=== PATIENT | female | born 1945 | race Caucasian/White ===

== ENCOUNTER 2020-01-11 17:05 | Outpatient (CLI) | payer MEDICARE, SELFPAY ==
--- NOTE | 2020-01-11 17:30 | MR_ITS ---
WS: [id number] MRI BRAIN WITHOUT CONTRAST HISTORY: F07.81 Postconcussional syndrome COMPARISON: CT head 02/18/2019. TECHNIQUE: Diffusion imaging, multiplanar T1, T2 and FLAIR imaging obtained. RIGHT frontal ventriculostomy catheter is causing significant artifact through the RIGHT brain. No ev idence for acute infarct or hemorrhage. Singh-white matter differentiation is normal. Moderate amount of periventricular white matter ischemic disease. There is additional ischemic change in the billy bilaterally. Ventricles are very slightly prominent but there is no hydrocephalus. Mild cerebral atrophy resulting in prominence of the subarachnoid spaces. No inferior displacement of cerebellar tonsils. The sella turcica and pituitary gland are unremarkabl e. Posterior fossa is also unremarkable. Dural venous sinuses and [place] demonstrate no abnormality on this unenhanced studies. Paranasal sinuses: Clear. Mastoid air cells: Normal. Calvarium and scalp: RIGHT frontal rafiq hole. MR/MR head wo con* [id number] IMPRESSION: 1. No evidence for intracranial hemorrhage or acute infarct. 2. RIGHT ventriculostomy catheter is unchanged in position with no complicatio ns. 3. Mild dilatation of the lateral ventricles but similar to the head CT of 02/18/2019. 4. Moderate chronic microvascular ischemic change in the white matter and bila terally in the billy.
== END 2020-01-11 17:06 | disposition home or self-care (01) ==
PROVIDERS: PCP Internal Medicine; Visit Provider Internal Medicine
DX: F07.81 Postconcussional syndrome (principal); R42 Dizziness and giddiness
CPT/HCPCS: 70551

== ENCOUNTER 2020-05-31 20:55 | Inpatient (IN) | payer MEDICARE, SELFPAY ==
[2020-05-31] VITALS (10 sets, daily range): BP systolic 72–104; BP diastolic 39–48; PULSE 64–72; RESP 12–18; TEMP 36.6; O2SAT 98–100
--- NOTE | 2020-05-31 21:01 | CTR_ITS ---
PROCEDURE INFORMATION: Exam: CT Head Without Contrast Exam date and time: 05/31/2020 10:58 PM Age: 74 years old Clinical indication: Syncope and collapse; Prior surgery; Surgery type: Shunt; Patient HX: Syncope with hypotension TECHNIQUE: Imaging protocol: Computed tomography of the head without contrast. Radiation optimization: All CT scans at this facility use at least one of these dose optimization techniques: automated exposure control; mA and/or kV adjustment per patient size (includes targeted exams where dose is matched to clinical indication); or iterative reconstruction. COMPARISON: CT head wo con* [id number] 02/18/2019 5:04 PM RADIATION DOSE METRICS: Total DLP (mGy-cm): 732.78 FINDINGS: Tubes, catheters and devices: Stable position of right frontal MATERIAL CONTROL SUPERVISOR shunt catheter, tip in the right lateral ventricle. Brain: No acute intracranial hemorrhage or mass effect. There is mild decreased attenuation in the periventricular white matter, likely from microvascular disease. No definite acute infarct by CT. MRI could be more sensitive/specific for detection, as clinically directed. Cerebral ventricles: Ventricle size is not significantly changed, probably upper range of normal/mildly prominent. Bones/joints: No definite acute skull fracture. Paranasal sinuses: Included paranasal sinuses are essentially clear. Mastoid air cells: No significant acute finding. Vasculature: Vascular calcifications in the internal carotid arteries. CT/CT head wo con* [id number] IMPRESSION: 1. No acute intracranial hemorrhage or mass effect. 2. Changes of microvascular disease. 3. No definite acute infarct by CT, see above. 4. MATERIAL CONTROL SUPERVISOR shunt catheter as above. Stable ventricle size. 5. Other findings discussed above. Radiation Dose CTDIVOL = (mGy): DLP = 732.78 (mGy-cm)
--- NOTE | 2020-05-31 21:01 | XR_ITS ---
WS: [id number] PORTABLE CHEST HISTORY: syncope COMPARISON: 03/10/2019 RANGE FEEDER shunt catheter tubing projects over the thoracic spine. Increasing patchy areas of opacification throughout the LEFT lung. Slightly better aeration in the RI GHT lower lung field. There is continued pleural thickening along the minor fissure. Mild elevation o f the RIGHT diaphragm. No pleural effusion or pneumothorax. Cardiac size: Mildly enlarged cardiac silhouette. Mediastinum/Aorta: Mild atherosclerosis aorta. Multiple deformed ribs in the posterior LEFT thorax from fractures. Degenerative changes at the LEFT glenohumeral joint and osteophytosis. Prior cholecystectomy. XR/XR chest 1V portable [id number] IMPRESSION: 1. New developing opacification throughout the LEFT lung, greatest in the uppe r lung field. Consistent with pneumonia. 2. Improved aeration RIGHT lower lobe. 3. Mild cardiomegaly.
--- NOTE | 2020-05-31 21:02 | ECG_ITS ---
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1945 Requested By: Jun Martínez Order Number: [id number] Reading MD: DORCAS DIXON Measurements Intervals [place] Rate: 65 P: -73 HI: 147 QRS: 4 QRSD: 118 T: 47 QT: 457 QTc: 476 Interpretive Statements ECTOPIC ATRIAL RHYTHM ANTEROSEPTAL MYOCARDIAL INFARCTION , PROBABLY old Compared to ECG 02/25/2019 17:17:08 Ectopic atrial rhythm now present Sinus rhythm no longer present Myocardial infarct finding still present Electronically Signed On 06-01-2020 18:18:40 VOCATIONAL REHABILITATION SUPERVISOR by DORCAS DIXON [id number]
--- NOTE | 2020-05-31 21:05 | CTR_ITS ---
PROCEDURE INFORMATION: Exam: CT Abdomen And Pelvis Without Contrast Exam date and time: 05/31/2020 10:58 PM Age: 74 years old Clinical indication: Abdominal pain; Generalized; Prior surgery; Surgery type: Gb. Hysterectomy. Hemorrhoidectomy. ; Patient HX: Diffuse abd pain. Hypotensive. No contrast due to creatinine of 2.5. TECHNIQUE: Imaging protocol: Computed tomography of the abdomen and pelvis without contrast. Radiation optimization: All CT scans at this facility use at least one of these dose optimization techniques: automated exposure control; mA and/or kV adjustment per patient size (includes targeted exams where dose is matched to clinical indication); or iterative reconstruction. COMPARISON: CR Pelvis AP 1 or 2 views* [id number] 09/20/2018 12:14 AM RADIATION DOSE METRICS: Total DLP (mGy-cm): 344.83 FINDINGS: Limitations: The absence of intravenous contrast lessens the sensitivity of this study for solid organ abnormalities. Tubes, catheters and devices: HIV CTS SPECIALIST shunt catheter is seen within the peritoneal cavity. Lungs: There is some dependent atelectasis at the lung bases. Mediastinal space: There is a small hiatal hernia. Liver: There is no focal abnormality within the liver. Gallbladder and bile ducts: There has been a cholecystectomy. Pancreas: The pancreas is normal. Spleen: The spleen is normal. Adrenal glands: The adrenal glands are normal. Kidneys and ureters: There is mild right hydronephrosis. There is mild right hydroureter. There is no evidence of renal or ureteral calcifications. There is mild atrophy of the left kidney Stomach and bowel: There is no evidence of colitis/diverticulitis. There are few mildly prominent small bowel loops in the mid abdomen which could represent mild ileus. Appendix: Not identified Intraperitoneal space: There is no evidence of free intraperitoneal fluid. Vasculature: The aorta demonstrates moderate atherosclerotic calcification. There is no evidence of an abdominal aortic aneurysm. Lymph nodes: Unremarkable. No enlarged lymph nodes. Urinary bladder: There is mild thickening of the urinary bladder wall. Please correlate for any clinical findings of urinary tract infection. Reproductive: There has been a hysterectomy. Bones/joints: The lumbar spine demonstrates moderate degenerative changes at multiple levels. Soft tissues: Unremarkable. CT/CT abdomen pelvis wo con [id number] IMPRESSION: 1. There is mild atrophy mild thickening of the urinary bladder wall. Please correlate for symptoms of urinary tract infection. 2. Mild right hydronephrosis and right hydroureter of uncertain significance and etiology. 3. Mild left renal atrophy. 4. Question of mild ileus. of the left kidney. Radiation Dose CTDIVOL = (mGy): DLP = 344.83 (mGy-cm)
--- NOTE | 2020-05-31 21:07 | ED_ITS ---
HPI - Abdominal Pain General: Chief Complaint: General Medical Stated Complaint: syncope and low bp Time Seen by Provider: 05/31/20 20:58 Source: patient and EMS Mode of arrival: EMS Limitations: no limitations History of Present Illness: HPI narrative: 74-year-old female states she has been having abdominal pain throughout the day. She does get constipated she states she was trying to have a bowel movement and passed out. States she has had multiple syncopal episodes over the last few weeks. EMS arrived patient was hypotensive. She still complains abdominal pain she rates a 7 out of 10 it is diffuse in nature. Denies any worsening or improving factors. MD elicited complaint: abdominal pain Associated Symptoms: Reports syncope; Denies chills, dysuria and fever(s) Review of Systems Const: Denies: fever(s), chills, body aches or change in appetite Eyes: Denies: blurry vision or eye discomfort ENMT: Denies: throat pain or dental pain Card: Reports: syncope Resp: Denies: dyspnea GI: Reports: abdominal pain : Denies: dysuria Musc: Denies: neck pain or back pain Skin/Breast: Denies: rash Neuro: Denies: headache(s) Psych: Denies: depression Herson/Lymph: Denies: easy bruising All/Imm: Denies: urticaria PFSH ED PFSH: Medical History (Updated 06/01/20 @ 00:11 by Janee Garcia MD) Chronic kidney disease, stage III (moderate) Constipation COPD (chronic obstructive pulmonary disease) Oxygen dependent GERD (gastroesophageal reflux disease) History of pleural effusion HTN (hypertension) Hydrocephalus Osteoarthritis Post-concussion vertigo Pulmonary emboli On Eliquis Surgical History (Updated 06/01/20 @ 00:11 by Janee Garcia MD) History of appendectomy History of arthroscopic knee surgery History of cholecystectomy History of colonoscopy History of esophagogastroduodenoscopy (EGD) History of hemorrhoidectomy History of hysterectomy 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 status Family History Other Cancer Diabetes Stroke Social History Smoking and tobacco status: current some day smoker Alcohol intake: never History of recent travel: No Physical Exam Const: COMMON NORMALS: no acute distress, patient oriented x3 and healthy appearing HENMT: COMMON NORMALS: normocephalic and atraumatic HEAD & SCALP: normocephalic and atraumatic Eye: COMMON NORMALS: Equal, round and reactive pupils present and EOMs intact bilaterally PUPIL: Yes Equal, round and reactive pupils present Neck/C-Spine: COMMON NORMALS: full ROM and supple Chest: COMMONS NORMALS: normal inspection of the chest and normal palpation of entire chest wall Resp: COMMON NORMALS: normal respiratory effort, No retractions, No use of accessory muscles and clear to auscultation bilaterally AUSCULTATION: clear to auscultation bilaterally Cardio: COMMON NORMALS: regular rate, regular rhythm and No murmurs present (Cardio) RATE: regular rate RHYTHM: regular rhythm GI: COMMON NORMALS: Normal to inspection, nondistended, normoactive bowel sounds present and no masses PALPATION: Yes Tenderness to palpation present (GI) (diffuse) Extremity: COMMON NORMALS: normal to inspection and full ROM Neuro: COMMON NORMALS: patient oriented x3, moves all extremities and no focal motor deficits Psych: COMMON NORMALS: mental status grossly normal, Normal thought process present and cooperative THOUGHT PROCESS: Normal thought process present Skin: COMMON NORMALS: no rashes or lesions noted and no wounds GENERAL SKIN EXAM: no rashes or lesions noted Course Vital Signs: Vital signs: Vital Signs Temperature 97.8 F 05/31/20 20:56 Pulse Rate 68 06/01/20 00:00 Respiratory Rate 13 05/31/20 23:23 Blood Pressure 100/45 06/01/20 00:00 Pulse Oximetry 100 05/31/20 22:36 MDM - Abdominal Pain MDM Narrative: Medical decision making narrative: Patient presents with a syncopal event was found to be hypotensive. She does have an elevated lactate and white count with possible septic shock. Patient given IV fluids along with IV antibiotics. Her blood pressure here is improved she is dehydrated as well. Spoke to the hospitalist will admit to the ICU. Lab Data: Labs: Lab Results 05/31/20 05/31/20 05/31/20 Range/Units 21:30 21:30 21:30 WBC 18.2 H (4.0-10.0) 10^3/ uL RBC 5.28 (4.1-5.3) 10^6/u L Hgb 14.6 (11.5-15.3) g/dL Hct 48.0 H (37.0-47.0) % MCV 90.9 (81-99) fL MCH 27.7 L (28.0-34.0) pg MCHC 30.4 (30.0-36.0) g/dL RDW 14.9 (12.1-15.1) % Plt Count 414 H (130-400) 10^3/c mm MPV 9.9 (7.4-10.4) fL Neut % (Auto) 78.0 % Lymph % (Auto) 14.8 % Swift % (Auto) 5.0 % Eos % (Auto) 0.4 % Baso % (Auto) 0.8 % Neut # (Auto) 14.19 H (1.8-7.7) 10^3/u L Lymph # (Auto) 2.7 (0.8-4.8) 10^3/u L Swift # (Auto) 0.9 (0.2-0.9) 10^3/u L Eos # (Auto) 0.1 (0.0-0.8) 10^3/u L Baso # (Auto) 0.1 (0.0-0.1) 10^3/u L Nucleated RBC % (a uto) 0 % Nucleated RBCs # 0.0 /100WBC Sodium 137 (136-145) mmol/L Potassium 5.4 H (3.5-5.1) mmol/L Chloride 97 L (98-107) mmol/L Carbon Dioxide 18 L (22-29) mmol/L Anion Gap 27.4 H (5-19) BUN 28 H (8-23) mg/dL Creatinine 2.5 H (0.5-0.9) mg/dL GFR Calculation Not Reportable Glucose 122 H (65-115) mg/dL Calculated Osmolal ity 291 (285-295) mOsm/k g Lactic Acid 5.6 H* (0.5-2.2) mmol/L Calcium 9.8 (8.5-10.5) mg/dL Total Bilirubin 0.4 (0.15-1.2) mg/dL AST 75 H (0-32) U/L ALT 30 (0-33) U/L Alkaline Phosphata se 146 H (35-105) IU/L Total Protein 7.4 (6.6-8.7) g/dL Albumin 4.4 (3.5-5.2) g/dL Globulin 3.0 (1.3-4.6) g/dL Lipase 89 H (13-60) U/L Urine Color (Yellow) Urine Appearance (CLEAR) Urine pH (5-7) Ur Specific Gravit y (1.005-1.030) Urine Protein (Negative) Urine Glucose (UA) (Normal) Urine Ketones (Negative) Urine Blood (Negative) Urine Nitrate (Negative) Urine Bilirubin (Negative) Urine Urobilinogen (Negative) mg/dL Ur Leukocyte Rakel ase (Negative) Urine RBC (0-2) /hpf Urine WBC (0-5) /hpf Ur Squamous Epith Cells (0-5) /hpf Amorphous Sediment /hpf Urine Bacteria (NONE) /hpf Urine Mucus /hpf 05/31/20 Range/Units 22:31 WBC (4.0-10.0) 10^3/ uL RBC (4.1-5.3) 10^6/u L Hgb (11.5-15.3) g/dL Hct (37.0-47.0) % MCV (81-99) fL MCH (28.0-34.0) pg MCHC (30.0-36.0) g/dL RDW (12.1-15.1) % Plt Count (130-400) 10^3/c mm MPV (7.4-10.4) fL Neut % (Auto) % Lymph % (Auto) % Swift % (Auto) % Eos % (Auto) % Baso % (Auto) % Neut # (Auto) (1.8-7.7) 10^3/u L Lymph # (Auto) (0.8-4.8) 10^3/u L Swift # (Auto) (0.2-0.9) 10^3/u L Eos # (Auto) (0.0-0.8) 10^3/u L Baso # (Auto) (0.0-0.1) 10^3/u L Nucleated RBC % (a uto) % Nucleated RBCs # /100WBC Sodium (136-145) mmol/L Potassium (3.5-5.1) mmol/L Chloride (98-107) mmol/L Carbon Dioxide (22-29) mmol/L Anion Gap (5-19) BUN (8-23) mg/dL Creatinine (0.5-0.9) mg/dL GFR Calculation Glucose (65-115) mg/dL Calculated Osmolal ity (285-295) mOsm/k g Lactic Acid (0.5-2.2) mmol/L Calcium (8.5-10.5) mg/dL Total Bilirubin (0.15-1.2) mg/dL AST (0-32) U/L ALT (0-33) U/L Alkaline Phosphata se (35-105) IU/L Total Protein (6.6-8.7) g/dL Albumin (3.5-5.2) g/dL Globulin (1.3-4.6) g/dL Lipase (13-60) U/L Urine Color Yellow (Yellow) Urine Appearance Hazy A (CLEAR) Urine pH 5 (5-7) Ur Specific Gravit y 1.030 (1.005-1.030) Urine Protein Neg (Negative) Urine Glucose (UA) Norm (Normal) Urine Ketones Negative (Negative) Urine Blood Neg (Negative) Urine Nitrate Negative (Negative) Urine Bilirubin Neg (Negative) Urine Urobilinogen Norm (Negative) mg/dL Ur Leukocyte Rakel ase Negative (Negative) Urine RBC None (0-2) /hpf Urine WBC None (0-5) /hpf Ur Squamous Epith Cells 0-4 H (0-5) /hpf Amorphous Sediment 1+ /hpf Urine Bacteria Trace (NONE) /hpf Urine Mucus Trace /hpf EKG Data ^: EKG 1: Attestation: I personally reviewed and interpreted this EKG as follows: EKG interpretation date: 05/31/20 EKG interpretation time: 22:02 Interpretation: nsr hr [address] or t wave abnormalities qrs 118 qtc 468 Critical Care Time Critical Care Time: Critical Care Time: Yes Total Critical Care Time: 35 Attestation: This case had a high probability of a clinically significant, sudden, or life threatening deterioration of this patient's condition which required my full and direct attention, intervention and personal management. Discharge Plan Discharge Patient Disposition: Admitted As Inpatient Admit Provider: Janee Garcia Clinical Impression: Septic shock, Dehydration Condition: Stable Coding Level of Care Code ED Tannery Worker for Chg Fwd Exam Comprehensive
[2020-05-31] MEDS: sodium chloride 0.9% 1,000 ML 999 ML IV ×3 (21:20→22:52)
[2020-05-31 21:55] LABS: Basophils # 0.1 10^3/uL (0.0-0.1); Basophils % 0.8 %; Eosinophils # 0.1 10^3/uL (0.0-0.8); Eosinophils % 0.4 %; Hemoglobin 14.6 g/dL (11.5-15.3); Lymphocytes # 2.7 10^3/uL (0.8-4.8); Lymphocytes % 14.8 %; Mean Corpuscular HGB Conc 30.4 g/dL (30.0-36.0); Mean Corpuscular Hemoglobin 27.7 pg (28.0-34.0); Mean Corpuscular Volume 90.9 fL (81-99); Mean Platelet Volume 9.9 fL (7.4-10.4); Monocytes # 0.9 10^3/uL (0.2-0.9); Neutrophils # 14.19 10^3/uL (1.8-7.7); Nucleated Red Blood Cells % 0 %; Platelet Count 414 10^3/cmm (130-400); Red Blood Count 5.28 10^6/uL (4.1-5.3); Red Cell Distribution Width 14.9 % (12.1-15.1); White Blood Count 18.2 10^3/uL (4.0-10.0)
[2020-05-31 22:16] LABS: Alanine Aminotransferase 30 U/L (0-33); Albumin Level 4.4 g/dL (3.5-5.2); Alkaline Phosphatase 146 IU/L (35-105); Anion Gap 27.4 (5-19); Aspartate Amino Transferase 75 U/L (0-32); Blood Urea Nitrogen 28 mg/dL (8-23); Calcium 9.8 mg/dL (8.5-10.5); Carbon Dioxide 18 mmol/L (22-29); Chloride 97 mmol/L (98-107); Glucose 122 mg/dL (65-115); Lipase 89 U/L (13-60); Osmolality Calculated 291 mOsm/kg (285-295); Potassium 5.4 mmol/L (3.5-5.1); Sodium 137 mmol/L (136-145); Total Bilirubin 0.4 mg/dL (0.15-1.2); Total Protein 7.4 g/dL (6.6-8.7)
[2020-05-31 22:42] LABS: Add Urine Microscopic? YES; Bilirubin Urine Neg (Negative); Blood Urine Neg (Negative); Glucose Urine UA Norm (Normal); Ketones Urine Negative (Negative); Leukocyte Esterase Urine Negative (Negative); Nitrate Urine Negative (Negative); Protein Urine Neg (Negative); Urine Appearance Hazy (CLEAR); Urine Color Yellow (Yellow); Urobilinogen Urine Norm (Negative); pH Urine 5 (5-7)
[2020-05-31 22:46] LABS: Squamous Epithelial Cell Urine 0-4 /hpf (0-5)
[2020-05-31 22:47] LABS: Add Urine Culture? No; Amorphous Sediment Urine 1+ /hpf; Bacteria Urine TRACE /hpf; Mucus Urine TRACE /hpf
[2020-05-31 22:54] LABS: Lactic Sepsis W/Reflex 5.6 mmol/L (0.5-2.2)
--- NOTE | 2020-05-31 23:07 | PC.NURSE ---
Per physician - 2500 cc ivf total.
[2020-05-31] MEDS: piperacillin-tazobactam 3.375 GM in sodium chloride 0.9% (plus) 50 ML IV (23:22)
[2020-05-31 23:32] LABS: Reflex Lactate Order REFLEX LACTIC ORDERD
[2020-05-31] MEDS: vancomycin 1,000 MG in sodium chloride 0.9% 250 ML 250 MG IV (23:58)
[2020-06-01] VITALS (128 sets, daily range): BP systolic 100–166; BP diastolic 39–101; PULSE 68–120; RESP 14–31; TEMP 36.4–37.1; O2SAT 75–100
--- NOTE | 2020-06-01 00:04 | P.HP_ITS ---
Providers/Chief Complaint Admitting Physician: Janee Garcia MD Primary Care Provider: Grant Quevedo MD Chief Complaint: syncope and low bp History of Present Illness Mago Tong is a 74 year old female presented today with chief complaint of falling at home. Patient is stating that last evening she went to bathroom, after her bowel movement she started experiencing fatigue and lethargy she started shivering despite wearing extra layers. She did not experience any kenna st pain shortness of breath, nausea, vomiting, dysuria or diarrhea. She was feeling extremely lethargic, she called her son to help her get out of the bathroom, she could not get up and fell on her son. She is denying loss of consciousness, no palpitations, chest pain or seizure-like activities. Of note, patient is stating that for last 2 weeks she has been having sore throat, she also noticed some mouth sores and blisters for which she was given an antibiotic which seemed to resolve her sores but she is still experiencing sore throat. No odynophagia or dysphagia. She has quit drinking soda she used to drink 4-5 Dr[address] Pepper in a day now she is trying to stick with water only. She is endorsing not drinking enough fluid. No recent falls or seizure-like activities. She is denying urinary/rectal incontinence or back pain. Diagnostics in the ER revealed severe hypotension for which she was given normal saline bolus which seemed to improve her blood pressure, she did not show tachycardia or tachypnea she was afebrile was saturating well on 2 L nasal cannula, at home she was at a liter of oxygen at night, She received vancomycin and Zosyn in the ER, diagnostics revealed ACOSTA, leuko cytosis without any signs of sepsis, unremarkable UA, CT abdomen unremarkable, no urolithiasis however right hydronephrosis seen, patient is denying signs of UTI. I have requested strep throat culture, at the time of my evaluation systolic blood pressure was ranging between 98-1 10 mmhg mean arterial pressure 66mmhg, she was not complaining of any active abdominal pain, chest pain, no neurological deficit, she was awake alert oriented x3 GCS 15 no signs of meningitis. She looked extremely dehydrated I gave her cranberry juice and a glass of water. Chest x-ray unremarkable, it is showing hiatal hernia changes otherwise no consolidation revealed. Head CT shows stable ventricle size no acute infarct. EKG without ischemic or infarct changes however showing ectopic atrial beats Review of Systems Const: Reports: chills, body aches, change in appetite, fatigue, malaise and diaphoresis Eyes: Denies: change in vision ENMT: Reports: throat pain, oral sores and dry mouth; Denies: uvular edema or hoarseness Card: Denies: chest pain Resp: Denies: dyspnea GI: Denies: abdominal pain : Denies: flank pain Musc: Reports: muscle cramps Skin/Breast: Denies: rash Neuro: Denies: headache(s), difficulty walking or confusion Psych: Denies: anxiety Endo: Denies: polyuria Herson/Lymph: Denies: easy bruising All/Imm: Denies: urticaria Medications/Allergies Home Medications Medication Instructions Recorded Confirmed Last Taken Type budesonide-formoterol HFA 160 2 puff INHALATION BID #10.2 gm 09/13/19 05/16/20 Unknown Rx mcg-4.5 mcg/actuation aerosol inhaler hydroxyzine HCl 25 mg tablet 25 mg PO TID PRN #90 tab 11/12/19 05/16/20 Unknown Rx linaclotide 290 mcg capsule 290 mcg PO DAILY #30 cap 11/12/19 05/16/20 Unknown Rx omeprazole 20 mg capsule,delayed 20 mg PO BID #60 cap 11/12/19 05/16/20 Unknown Rx release potassium chloride 20 mEq 20 meq PO DAILY #30 tab 11/12/19 05/16/20 Unknown Rx tablet,extended release montelukast 10 mg tablet 10 mg PO .daily at hs #30 tab 11/15/19 05/16/20 Unknown Rx lisinopril 20 mg tablet 20 mg PO DAILY #30 tab 12/15/19 05/16/20 Unknown Rx apixaban 5 mg tablet 5 mg PO BID #60 tab MDD 2 01/24/20 05/16/20 Unknown Rx meloxicam 15 mg tablet 15 mg PO DAILY 30 Days #30 tab 01/24/20 05/16/20 Unknown Rx metformin 1,000 mg tablet 1,000 mg PO BID 30 Days #60 tab 01/24/20 05/16/20 Unknown Rx MDD 2 simvastatin 20 mg tablet 20 mg PO DAILY 30 Days #30 tab 01/24/20 05/16/20 Unknown Rx fluticasone propionate 50 See Rx Instructions .ROUTE 03/16/20 05/16/20 Unknown Rx mcg/actuation nasal .COMPLEX #16 g spray,suspension gabapentin 300 mg capsule 300 mg PO TID #90 cap 03/16/20 05/16/20 Unknown Rx tiotropium bromide 18 mcg capsule 1 cap INHALATION DAILY #30 inh 03/16/20 05/16/20 Unknown Rx with inhalation device clonazepam 1 mg tablet 1 mg PO .EVERY 6 HOURS, PRN 30 04/03/20 05/16/20 Unknown Rx Days #60 tab metoprolol succinate 100 mg 100 mg PO DAILY #30 tab 04/17/20 05/16/20 Unknown Rx tablet,extended release 24 hr amitriptyline 75 mg tablet 75 mg PO DAILY #30 tab 04/20/20 05/16/20 Unknown Rx metoprolol succinate 100 mg 100 mg PO DAILY #30 tab 04/20/20 05/16/20 Unknown Rx tablet,extended release 24 hr blood-glucose meter #1 ea 04/26/20 05/16/20 Unknown Rx dicyclomine 10 mg capsule 10 mg PO TID #90 cap 04/27/20 05/16/20 Unknown Rx amlodipine 5 mg tablet 5 mg PO DAILY #30 tab 05/16/20 05/16/20 Unknown Rx escitalopram oxalate 20 mg tablet 20 mg PO DAILY #30 tab 05/16/20 05/16/20 Unknown Rx Allergies Allergy/AdvReac Type Severity Reaction Status Date / Time propofol Allergy ADR-Chest Verified 05/31/20 21:46 Pain PFSH Acute PFSH: Medical History (Updated 06/01/20 @ 01:06 by Janee Garcia MD) Chronic kidney disease, stage III (moderate) Constipation COPD (chronic obstructive pulmonary disease) Oxygen dependent GERD (gastroesophageal reflux disease) History of pleural effusion HTN (hypertension) Hydrocephalus Osteoarthritis Post-concussion vertigo Pulmonary emboli On Eliquis Surgical History (Updated 06/01/20 @ 00:11 by Janee Garcia MD) History of appendectomy History of arthroscopic knee surgery History of cholecystectomy History of colonoscopy History of esophagogastroduodenoscopy (EGD) History of hemorrhoidectomy History of hysterectomy S/P cholecystectomy 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 INSPECTOR (ventriculoperitoneal) shunt status Family History Other Cancer Diabetes Stroke Social History Smoking and tobacco status: current some day smoker Alcohol intake: never History of recent travel: No Vitals/I&O/Wt Last Vital Signs Temp 97.8 F 05/31/20 20:56 Pulse 68 06/01/20 00:00 Resp 13 05/31/20 23:23 BP 100/45 06/01/20 00:00 Pulse Ox 100 05/31/20 22:36 05/31/20 05/31/20 06/01/20 14:59 22:59 06:59 Intake Total 1999.0 / 1999.0 550 / 2550.0 Balance 1999.0 / 1999.0 550 / 2550.0 Weight last 48 hrs Weight 54.431 kg Physical Exam Narrative: EXAM NARRATIVE: Very pleasant elderly female Extremely dehydrated with dry buccal mucous membrane NIH 0 no neurological deficit Awake alert oriented x3 GCS 15 Pupils are sluggish to respond to light however symmetrical, round S1, S2 no murmur appreciated Abdomen soft mild tenderness in hypogastric region Lower extremity no edema gangrene ulcer No acute respiratory distress saturating well on 2 L nasal cannula No confusion Appropriate mood and affect Multiple petechiae of upper and lower extremities No joint swelling or signs of cellulitis No signs of cauda equina, she has good sensation of medial upper thighs area Denying back pain at the time of my evaluation Data : 05/31/20 21:30 05/31/20 21:30 Micro: Microbiology 05/31/20 21:35 Blood Culture - Preliminary Blood SPECIMEN COLLECTED 05/31/20 21:30 Blood Culture - Preliminary Blood SPECIMEN COLLECTED A&P Assessment and plan (1) Hypovolemic shock: Hypovolemic shock Clinically very dehydrated, dry mucous membranes She is not tachycardic or tachypneic no signs of fever, no active source of infection With hypotension interestingly her heart rate has not increased, no recent falls or trauma to her spine, neurogenic shock unlikely, no signs of cauda equina syndrome or back pain PE less likely she is on Eliquis and active for her age, no signs of cardiogenic shock I do believe she was dehydrated that caused hypotension which was aggravated due to taking 3 antihypertensive agents and not retaining fluid at home We will check TSH, monitor in ICU for tonight I would not continue her vancomycin or Zosyn because of ACOSTA, would use linezolid, cefepime and metronidazole for broad spectrum antibiotic coverage Status: Acute (2) Dehydration: Continue normal saline maintenance rate overnight Monitor urine output and correlate with creatinine Hold nephrotoxic agents She has hydronephrosis without obstructive uropathy No active signs of UTI UA unremarkable Status: Acute (3) ACOSTA (acute kidney injury): Hyperkalemia 5.4 without any EKG changes, Will give her 1 dose of Kayexalate anticipating improvement in creatinine with fluid resuscitation, this seems secondary to dehydration and nephrotoxic agents Hold lisinopril Status: Acute Additional A&P Information Sore throat: I would request strep throat culture, patient is endorsing sore throat with sores, no active oral ulcers or sores identified, posterior pharyngeal wall not hyperemic no signs of exudative changes Would request procalcitonin level as well Ileus: No active nausea, vomiting, no severe abdominal pain, conservative management for now, no signs of colitis or diverticulitis Consistent carbohydrate diet DVT prophylaxis not needed currently on Eliquis which she has been taking for PE Full code Attestations Medical Necessity Statement*: Anticipating stay to cross more than 2 midnights need excessive fluid hydration for hypovolemic shock, responsive to fluid will monitor in ICU Time Spent in Patient Care: (>than 50% of time spent in counselling and/or direct pt care on unit) . 40mins Coding Level of Care Code Acute Api Developer for [facility] Diagnoses Hypovolemic shock R57.1 Dehydration E86.0 ACOSTA (acute kidney injury) N17.9
[2020-06-01 01:35] LABS: Lactic Acid level (Lactate) 6.2 mmol/L (0.5-2.2)
[2020-06-01 01:37] LABS: Procalcitonin 0.59 ng/mL (0-0.5)
[2020-06-01] MEDS: sodium chloride 0.9% 1,000 ML 75 ML IV ×2 (02:09→14:04)
[2020-06-01] MEDS: hydrocortisone 100 mg/2 mL SDV IVP (02:09)
[2020-06-01] MEDS: sodium chloride 0.9% 1,000 ML 999 ML IV (02:11)
[2020-06-01] MEDS: cefepime 1,000 MG in sodium chloride 0.9% (plus) 50 ML 100 MG IV ×2 (03:14→13:55)
[2020-06-01] MEDS: linezolid premix 600 MG/300 ML PREMIX 300 MG IV ×2 (03:45→13:55)
[2020-06-01 04:07] LABS: Anion Gap 5.6 (5-19); Blood Urea Nitrogen 23 mg/dL (8-23); Carbon Dioxide 14 mmol/L (22-29); Glucose 62 mg/dL (65-115); Osmolality Calculated 300 mOsm/kg (285-295); Potassium 3.6 mmol/L (3.5-5.1); Sodium 144 mmol/L (136-145)
[2020-06-01 04:08] LABS: Basophils # 0.1 10^3/uL (0.0-0.1); Basophils % 0.5 %; Hematocrit 32.1 % (37.0-47.0); Hemoglobin 9.3 g/dL (11.5-15.3); Lymphocytes # 1.3 10^3/uL (0.8-4.8); Lymphocytes % 6.5 %; Mean Corpuscular Hemoglobin 27.6 pg (28.0-34.0); Mean Corpuscular Volume 95.3 fL (81-99); Mean Platelet Volume 9.8 fL (7.4-10.4); Monocytes # 1.4 10^3/uL (0.2-0.9); Neutrophils # 17.25 10^3/uL (1.8-7.7); Neutrophils % 85.1 %; Nucleated Red Blood Cells % 0 %; Platelet Count 273 10^3/cmm (130-400); Red Blood Count 3.37 10^6/uL (4.1-5.3); Red Cell Distribution Width 15.1 % (12.1-15.1); White Blood Count 20.3 10^3/uL (4.0-10.0)
[2020-06-01 04:38] LABS: Calcium 5.6 mg/dL (8.5-10.5); Chloride 128 mmol/L (98-107)
[2020-06-01 05:22] LABS: Blood Urea Nitrogen 30 mg/dL (8-23); Calcium 7.8 mg/dL (8.5-10.5); Carbon Dioxide 15 mmol/L (22-29); Chloride 108 mmol/L (98-107); Glucose 133 mg/dL (65-115); Osmolality Calculated 304 mOsm/kg (285-295); Sodium 143 mmol/L (136-145)
[2020-06-01 05:24] LABS: Anion Gap 24.8 (5-19); Potassium 4.8 mmol/L (3.5-5.1)
--- NOTE | 2020-06-01 08:58 | P.PN_ITS ---
Subjective Subjective: Interval history: She is feeling thirsty. This morning also had a large diarrheal movement. Prior to that was having some abdominal cramping. Currently in no abdominal pain. She also felt like she was going to vomit, per discussion with her nurse did not actually vomit. She does say she is breathing comfortably, does have some occasional intermittent cough. She is having chills, but also says that she has been cold for over a month. Vitals/I&O/Wt Last Vital Signs Temp 98.7 F 06/01/20 04:08 Pulse 90 06/01/20 06:27 Resp 18 06/01/20 06:00 BP 125/86 06/01/20 06:00 Pulse Ox 91 06/01/20 06:00 05/31/20 06/01/20 06/01/20 22:59 06:59 14:59 Intake Total 1999.0 / 1999.0 2150 / 4150.0 Output Total 700 / 700 Balance 1999.0 / 1999.0 1450 / 3450.0 Weight last 48 hrs Weight 54.431 kg Physical Exam Const: COMMON NORMALS: no acute distress, patient oriented x3 and alert GENERAL APPEARANCE: cooperative and frail appearing ORIENTATION/CONSCIOUSNESS: Yes awake OTHER: Minimally hard of hearing. HENMT: COMMON NORMALS: oropharynx normal Neck/C-Spine: COMMON NORMALS: no JVD Resp: COMMON NORMALS: normal respiratory effort and clear to auscultation bila terally AUSCULTATION: clear to auscultation bilaterally Cardio: COMMON NORMALS: no JVD, regular rhythm, S1 normal heart sound present, S2 normal heart sound present and No murmurs present (Cardio) RHYTHM: regular rhythm HEART SOUNDS: S1 normal heart sound present and S2 normal heart sound present GI: COMMON NORMALS: Normal to inspection, nondistended, normoactive bowel sounds present, Soft to palpation and non-tender PALPATION: Yes Soft to palpation Extremity: COMMON NORMALS: no joint enlargement and no pedal edema Neuro: COMMON NORMALS: patient oriented x3 and moves all extremities SENSORIUM/ORIENTATION: Yes alert Skin: COMMON NORMALS: no rashes or lesions noted GENERAL SKIN EXAM: no rashes or lesions noted Data : 06/01/20 03:23 06/01/20 04:45 Micro: Microbiology 05/31/20 21:35 Blood Culture - Preliminary Blood SPECIMEN COLLECTED 05/31/20 21:30 Blood Culture - Preliminary Blood SPECIMEN COLLECTED A&P Assessment and plan (1) Hypovolemic shock: Discussed with her a number of differential diagnoses. It is not entirely clear as to the cause of the shock. She certainly has had poor oral intake, feels dry, and also appears continue taking her medications, including antihypertensives, leading to kidney injury, and also additional hypotension. She did report chills, fatigue, this morning having diarrhea, has been having some intermittent cough. She does report has been tested for COVID-19, last time 7-10 days ago with a drive-through test. Says it was negative. She is not sure about getting recent antibiotics, but did get a course of prednisone several weeks ago from her PCP due to overall, red/cracked mouth and lips. She is unsure if she got actual antibiotics. Discussed with her also possibility of Metformin due to lactic acidosis, which although rare can be a quite severe adverse effect. We will go ahead and send a PCR sample for COVID-19. We will also request stool studies. Otherwise we will continue IV hydration. Continue empiric antibiotics for now for possible sepsis. Discussed with her son. Status: Acute (2) Dehydration: Continue IV hydration. Monitor renal function. Status: Acute (3) ACOSTA (acute kidney injury): Low K diet. Hold potassium supplement. Hyperkalemia 5.4 without any EKG changes, Hold lisinopril Status: Acute Additional A&P Information Diarrhea. Gastroenteritis: As above Sore throat: Strep throat pending Attestations Medical Necessity Statement*: Continue admission for assessment management of gastroenteritis, dehydration, following hypovolemic shock, lactic acidosis, complicated by acute kidney injury. Coding Level of Care Code Acute Wire Taper for [facility] Diagnoses Hypovolemic shock R57.1 Dehydration E86.0 ACOSTA (acute kidney injury) N17.9
[2020-06-01 09:37] LABS: Thyroid Stimulating Hormone 2.35 uIU/mL (0.27-4.20)
[2020-06-01] MEDS: sodium polystyrene sulfonate 15 gm/60 mL Btl PO (10:00)
[2020-06-01] MEDS: apixaban 5 mg Tablet PO ×2 (10:00→18:55)
[2020-06-01] MEDS: pantoprazole DR 40 mg Tablet PO ×2 (10:00→18:55)
[2020-06-01] MEDS: metroNIDAZOLE 500 MG Tablet PO ×3 (10:00→20:25)
[2020-06-01 10:12] LABS: Glucose Point of Care 129 mg/dL (70-110)
--- NOTE | 2020-06-01 10:25 | PC.CHAP ---
Pastoral Care Encounter/Spiritual Assessment Type of Contact [] Declined card feeder visit [] Patient/Family/Request visit [] Outpatient visit [] Follow-up visit [] Physician referral [] Code/Alert [x] Routine visit [] Staff referral [] Actively dying [] Patient sleeping [] Family support [] [] Out of room [] Palliative care [] [] Receiving care in room [] Pre-surgical visit [] Trauma [] Long length of stay [x] ICU visit [] Other: Relational/Emotional Strength [] Patient feels connected with others/family/visitors/staff [] Distress [] Loneliness/isolation [] Abandonment Spirituality of Patient [] Person of Chelsie [] Attends Nondenominational of their Chelsie [] Believes in Prayer [] Reads Bible or Yazidi materials [] There are Spiritual issues to be addressed Livestock Dealer Interventions [x] Prayer [] Active listening [] Non-anxious presence [] Spiritual/emotional support [] Crisis/trauma care [] Spiritual counseling [] Bereavement support [] Provided bereavement packet [] Provided Bible/devotional materials [] Provided toy/stuffed animal, coloring book to patient or family member [] Provided Communion [] Anointing/Havana [] Salvation [x] Completed spiritual assessment [] Other: Impact on Illness or Injury [] Angry [] Fearful [] Anxious [] Often cries [] Exhaustion [] Unable to work [] Unable to attend buddhism [] Unable to walk/stand [] Unable to read [] Unable to drive [] Unable to eat/drink [] Unable to sleep [] Unable to be with family [] Patient intubated [] Other: Summary Time spent with patient
[2020-06-01 11:53] LABS: Glucose Point of Care 149 mg/dL (70-110)
--- NOTE | 2020-06-01 22:48 | PC.NURSE ---
While walking by patient room patient was sitting up on side of bed leaned over to see out the doorway asking what is going on, with oxygen off. I went into room and helping patient get back and bed and repositioned her, placed oxygen back on patient. Patient states that there are people walking by and talking but no one comes in to speak with her or tell her what is going on, Patient also asks what the beeping is. I informed patient that she was in the hospital and the people walking by were the nursing staff checking on other patients. Patient then asked what hospital she was at, patient informed of the hospital. Will continue to monitor and check on her frequently.
[2020-06-02] VITALS (11 sets, daily range): BP systolic 144–203; BP diastolic 67–86; PULSE 75–126; RESP 16–24; TEMP 36.6–37.1; O2SAT 96–99
[2020-06-02] MEDS: cefepime 1,000 MG in sodium chloride 0.9% (plus) 50 ML 100 MG IV ×2 (01:00→15:06)
[2020-06-02] MEDS: linezolid premix 600 MG/300 ML PREMIX 300 MG IV ×2 (01:33→17:23)
--- NOTE | 2020-06-02 05:34 | PC.NURSE ---
Lab came to nurses station after going in patients room saying there was an emergency. When other nursing staff went into patients room the patient had taken off her gown and there was liquid feces in the floor around the bed. Patient was out of bed with IV tubing pulled taunt. Patient was helped one assist to walk to bathroom while bedding was changed and patient cleaned up.
[2020-06-02 06:16] LABS: Hematocrit 32.8 % (37.0-47.0); Hemoglobin 9.8 g/dL (11.5-15.3); Mean Corpuscular HGB Conc 29.9 g/dL (30.0-36.0); Mean Corpuscular Hemoglobin 27.4 pg (28.0-34.0); Mean Corpuscular Volume 91.6 fL (81-99); Platelet Count 248 10^3/cmm (130-400); Red Blood Count 3.58 10^6/uL (4.1-5.3); Red Cell Distribution Width 15.4 % (12.1-15.1); White Blood Count 10.7 10^3/uL (4.0-10.0)
[2020-06-02] MEDS: sodium chloride 0.9% 1,000 ML 75 ML IV ×2 (06:37→20:57)
[2020-06-02 06:39] LABS: Alanine Aminotransferase 18 U/L (0-33); Alkaline Phosphatase 71 IU/L (35-105); Anion Gap 13.8 (5-19); Aspartate Amino Transferase 19 U/L (0-32); Blood Urea Nitrogen 26 mg/dL (8-23); Carbon Dioxide 21 mmol/L (22-29); Chloride 105 mmol/L (98-107); Globulin 2.4 g/dL (1.3-4.6); Glucose 141 mg/dL (65-115); Osmolality Calculated 289 mOsm/kg (285-295); Potassium 3.8 mmol/L (3.5-5.1); Sodium 136 mmol/L (136-145); Total Bilirubin 0.2 mg/dL (0.15-1.2); Total Protein 5.4 g/dL (6.6-8.7)
[2020-06-02 07:54] LABS: Slide Review Slide Review Perform
[2020-06-02 07:58] LABS: Absolute Eosinophils 0.1 10^3/cmm (0.0-0.7); Absolute Neutrophil 7.3 10^3/cmm (1.4-6.5); Absolute Segmented Neutrophil 6.1 10/cmm (1.6-7.1); Band Neutrophils Absolute 1.2 10^3/cmm (0.0-1.2); Eosinophils 1 %; Lymphocytes 23 %; Monocytes Absolute 0.5 10^3/cmm (0.1-0.6); Platelet Estimate Normal (Normal); Segmented Neutrophils 57 %; Total Cells Counted 100 (0-100)
[2020-06-02] MEDS: pantoprazole DR 40 mg Tablet PO ×2 (09:20→17:23)
[2020-06-02] MEDS: apixaban 5 mg Tablet PO ×2 (09:20→17:23)
[2020-06-02] MEDS: metroNIDAZOLE 500 MG Tablet PO ×3 (09:20→20:48)
--- NOTE | 2020-06-02 11:33 | CTR_ITS ---
PROCEDURE INFORMATION: Exam: CT Head Without Contrast Exam date and time: 06/02/2020 12:09 PM Age: 74 years old Clinical indication: Altered mental status/memory loss; Confusion or disorientation; Prior surgery; Surgery date: 6+ months; Surgery type: Predatory Animal Trapper shunt; Patient HX: Multiple recent falls, HTN, confusion; Additional info: HTN, confused TECHNIQUE: Imaging protocol: Computed tomography of the head without contrast. Total images: 187 Radiation optimization: All CT scans at this facility use at least one of these dose optimization techniques: automated exposure control; mA and/or kV adjustment per patient size (includes targeted exams where dose is matched to clinical indication); or iterative reconstruction. COMPARISON: CT head wo con* [id number] 05/31/2020 11:19 PM RADIATION DOSE METRICS: Total DLP (mGy-cm): 1326.23 FINDINGS: Brain: No evidence of active or acute intracranial pathologic process, hemorrhage, or trauma. No visible evidence of diffuse cerebral edema or generalized demyelination. Mild small vessel ischemic disease with senile periventricular leukomalacia. Mild cerebral arteriosclerosis. Cerebral and cerebellar atrophy not inconsistent with the patient's chronological age. Cerebral ventricles: Ventriculoperitoneal shunt stable. No visible ventriculomegaly. No significant overall change since 05/31/2020. Bones/joints: Unremarkable. No acute fracture. Paranasal sinuses: Visualized sinuses are unremarkable. No fluid levels. Mastoid air cells: Visualized mastoid air cells are well aerated. Soft tissues: Unremarkable. CT/CT head wo con* [id number] IMPRESSION: 1. No evidence of active or acute intracranial pathologic process, hemorrhage, or trauma. 2. Ventriculoperitoneal shunt stable. 3. No visible ventriculomegaly. 4. No significant overall change since 05/31/2020. Radiation Dose CTDIVOL = (mGy): DLP = 1326.23 (mGy-cm)
[2020-06-02] MEDS: hyDRALAzine 20 mg/mL INJ 1 mL 5 MG IVP ×2 (11:51→15:11)
[2020-06-02] MEDS: atorvastatin 40 mg Tablet 20 MG PO (11:59)
[2020-06-02] MEDS: gabapentin 300 mg Capsule PO ×2 (15:12→20:48)
[2020-06-02 17:52] LABS: Coronavirus Lab Test PTC Negative
[2020-06-02] MEDS: hyDRALAzine 20 mg/mL INJ 1 mL 10 MG IVP ×2 (18:02→18:58)
--- NOTE | 2020-06-02 19:53 | PC.NURSE ---
AT APPROX 1115 PTS BP WAS 203/86, DR. OSEGUERA NOTIFIED, VERBAL ORDER FOR HYDRALAZINE 5MG IVP RECEIVED AT APPROX 1455 PTS BP WAS 190/79, DR. OSEGUERA NOTIFIED, VERBAL ORDER FOR HYDRALAZINE 5MG IVP RECEIVED AT APPROX 1750 PTS BP WAS 226/93, DR OSEGUERA NOTIFIED, VERBAL ORDER FOR HYDRALAZINE 10MG IVP RECEIVED AT APPROX 1840 PTS BP WAS 196/85, DR OSEGUERA NOTIFIED, VERBAL ORDER FOR HYDRALAZINE 10MG IVP RECEIVED
--- NOTE | 2020-06-02 20:42 | PM.PN ---
Subjective Subjective: Interval history: Today she has been having on and off headache. Blood pressure in office been elevated. She is feeling a bit warm. Denies photophobia, diplopia, vision changes. No chest pain pressure, no shortness of breath, no abdominal discomfort. Vitals/I&O/Wt Last Vital Signs Temp 98.5 F 06/02/20 20:00 Pulse 126 H 06/02/20 20:00 Resp 24 H 06/02/20 20:00 BP 185/80 06/02/20 20:09 Pulse Ox 98 06/02/20 20:00 06/02/20 06/02/20 06/02/20 06:59 14:59 22:59 Intake Total 1710 / 3553.75 180 / 180 110 / 290 Balance 1710 / 3553.75 180 / 180 110 / 290 Weight last 48 hrs Weight 54.431 kg Physical Exam Const: COMMON NORMALS: no acute distress, patient oriented x3 and alert GENERAL APPEARANCE: cooperative, anxious and frail appearing ORIENTATION/CONSCIOUSNESS: Yes awake OTHER: Minimally hard of hearing. HENMT: COMMON NORMALS: oropharynx normal Neck/C-Spine: COMMON NORMALS: no meningeal signs and no JVD Resp: COMMON NORMALS: normal respiratory effort and clear to auscultation bilaterally AUSCULTATION: clear to auscultation bilaterally OTHER: Minimal wheeze L lung Cardio: COMMON NORMALS: no JVD, regular rhythm, S1 normal heart sound present, S2 normal heart sound present and No murmurs present (Cardio) RHYTHM: regular rhythm HEART SOUNDS: S1 normal heart sound present and S2 normal heart sound present GI: COMMON NORMALS: Normal to inspection, nondistended, normoactive bowel sounds present, Soft to palpation and non-tender PALPATION: Yes Soft to palpation Extremity: COMMON NORMALS: no joint enlargement and no pedal edema Neuro: COMMON NORMALS: patient oriented x3 and moves all extremities SENSORIUM/ORIENTATION: Yes alert and Yes Orientation impaired (Somewhat fluctuating orientation) MENINGEAL SIGNS: Yes no meningeal signs Skin: COMMON NORMALS: no rashes or lesions noted GENERAL SKIN EXAM: no rashes or lesions noted Data : 06/02/20 05:12 06/02/20 05:12 Micro: Microbiology 06/02/20 17:23 Blood Culture - Preliminary Blood SPECIMEN COLLECTED 06/02/20 16:40 Blood Culture - Preliminary Blood SPECIMEN COLLECTED 05/31/20 21:30 Blood Culture - Preliminary Blood Staphylococcus aureus 06/02/20 05:12 Enteric Pathogens (PCR) - Final Stool Routine Collection Parasite Antigen Panel - Final C.difficile Toxin B Gene (PCR) - Final 06/01/20 01:22 Group A Streptococcus Rapid Screen - Preliminary Throat 05/31/20 21:35 Blood Culture - Preliminary Blood NEGATIVE TO DATE A&P Assessment and plan (1) Staphylococcus aureus bacteremia: Initially 1/4 bottles, and this afternoon 2/4 bottles Staph aureus in blood from 2/4 bottles. Possibly bacteremia secondary to pneumonia. Discussed with her and her son this evening. Concern is regarding that she also has a AUTO BODY CUSTOMIZER shunt. Today she has been having some on and off headaches, but also hypertension. Otherwise does not appear to have focal neurologic abnormalities, no rigidity, although he is having mild encephalopathy today/delirium, with forgetfulness. We will hold Eliquis in anticipation of lumbar puncture. Continue treatment of pneumonia. Given hypertension, headaches, some noted flushing, will switch away from linezolid in case of some possible early serotonin syndrome. Although her antidepressants have been held, she has been in acute kidney injury, and so will switch over to vancomycin as a precaution. Repeated blood culture today. Repeat again tomorrow. CT head today with no evidence of active or acute intracranial pathologic process, hemorrhage or trauma. AUTO BODY CUSTOMIZER shunt stable. No visible ventriculomegaly. No significant overall change. DC Flagyl. Status: Acute (2) Pneumonia: Continue cefepime. Change linezolid to vancomycin. Status: Acute (3) Hypovolemic shock: Resolved. Today hypertensive urgency requiring IV hydralazine. Now hypertensive. Amlodipine was resumed. Will increase to 10 mg. Continue metoprolol. DC IV fluid. Discussed with her son. Status: Acute (4) Dehydration: DC IV hydration. Status: Acute (5) ACOSTA (acute kidney injury): With mild improvement. Now hypertensive. Will DC further IV fluid. Encourage oral nutrition, hydration. Hyperkalemia resolved. Hold lisinopril Status: Acute Additional A&P Information Diarrhea. Gastroenteritis:. Enteric pathogen panel, C. difficile negative. Parasites negative. Sore throat: Strep throat negative rapid test. Pending culture. Attestations Medical Necessity Statement*: Continue admission for assessment of management of staphylococcal bacteremia, resolving sepsis, pneumonia,, acute kidney injury in a lady on anticoagulation, with AUTO BODY CUSTOMIZER shunt. Coding Level of Care Code Acute It Risk And Assurance Senior Manager for [facility] Diagnoses Staphylococcus aureus bacteremia R78.81; B95.61 Pneumonia J18.9 Hypovolemic shock R57.1 Dehydration E86.0 ACOSTA (acute kidney injury) N17.9
[2020-06-02] MEDS: montelukast sodium 10 mg Tablet PO (20:48)
[2020-06-02] MEDS: HYDROcodone-acetaminophen 5-325 mg Tablet 1 TAB PO (20:48)
--- NOTE | 2020-06-02 21:10 | PC.PHAR ---
Vancomycin is dosed at 500mg IVPB every 24 hours to produce a predicted trough level of 17.16 (population based pharmacokinetic analysis). A trough level has been ordered from the lab to be obtained before the fourth dose to confirm and adjust if needed.
--- NOTE | 2020-06-02 21:25 | ECG_ITS ---
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 Measurements Intervals [place] Rate: 78 P: 38 OR: 171 QRS: -5 QRSD: 114 T: 27 QT: 407 QTc: 464 Interpretive Statements SINUS RHYTHM ANTEROSEPTAL MYOCARDIAL INFARCTION [40+ ms Q WAVE IN V1-V4], OF INDETERMINATE AGE Compared to ECG 05/31/2020 22:02:29 Ectopic atrial rhythm no longer present Myocardial infarct finding still present Electronically Signed On 06-03-2020 19:29:45 CLINICAL REHABILITATION AIDE by Heena Karimi M.D. [email or web address]
[2020-06-02] MEDS: labetalol 5 mg/mL SDV 20mL 20 MG IVP (21:42)
[2020-06-02] MEDS: diphenhydrAMINE 50 mg/mL SDV 1mL 25 MG IVP (21:43)
[2020-06-02] MEDS: vancomycin 500 MG in sodium chloride 0.9% (plus) 100 ML 200 MG IV (21:45)
--- NOTE | 2020-06-02 23:30 | PC.NURSE ---
Chest Pain/Elevated Blood Pressure At 2114 patient c/o chest pain and something not feeling right. Blood pressure 192/81 and pulse 118. Reported to Dr. Garcia along with redness/rash to bilateral arms. Rash not observed anywhere else, vanc had not been hung yet by this nurse. Orders received for IV labetolol and Benadryl. Both administered with improvement of blood pressure. EKG taken and patient placed on telemetry. Patient resting comfortably at this time.
[2020-06-03] VITALS (48 sets, daily range): BP systolic 94–224; BP diastolic 68–108; PULSE 68–90; RESP 14–32; TEMP 36.6–37.2; O2SAT 90–100
[2020-06-03] MEDS: cefepime 1,000 MG in sodium chloride 0.9% (plus) 50 ML 100 MG IV ×2 (01:05→12:26)
[2020-06-03 06:59] LABS: Basophils # 0.1 10^3/uL (0.0-0.1); Basophils % 0.6 %; Eosinophils # 0.2 10^3/uL (0.0-0.8); Eosinophils % 2.2 %; Hematocrit 35.5 % (37.0-47.0); Hemoglobin 10.6 g/dL (11.5-15.3); Lymphocytes # 1.8 10^3/uL (0.8-4.8); Lymphocytes % 20.1 %; Mean Corpuscular HGB Conc 29.9 g/dL (30.0-36.0); Mean Corpuscular Hemoglobin 27.5 pg (28.0-34.0); Mean Platelet Volume 10.1 fL (7.4-10.4); Monocytes # 0.7 10^3/uL (0.2-0.9); Monocytes % 7.5 %; Neutrophils # 6.08 10^3/uL (1.8-7.7); Neutrophils % 69.3 %; Nucleated Red Blood Cells % 0 %; Platelet Count 279 10^3/cmm (130-400); Red Blood Count 3.86 10^6/uL (4.1-5.3); Red Cell Distribution Width 15.8 % (12.1-15.1); White Blood Count 8.8 10^3/uL (4.0-10.0)
[2020-06-03 07:12] LABS: Alanine Aminotransferase 12 U/L (0-33); Albumin Level 3.2 g/dL (3.5-5.2); Alkaline Phosphatase 97 IU/L (35-105); Anion Gap 13.5 (5-19); Aspartate Amino Transferase 11 U/L (0-32); Blood Urea Nitrogen 14 mg/dL (8-23); Calcium 8.5 mg/dL (8.5-10.5); Carbon Dioxide 21 mmol/L (22-29); Chloride 106 mmol/L (98-107); Globulin 2.6 g/dL (1.3-4.6); Glucose 117 mg/dL (65-115); Osmolality Calculated 286 mOsm/kg (285-295); Potassium 3.5 mmol/L (3.5-5.1); Sodium 137 mmol/L (136-145); Total Bilirubin 0.2 mg/dL (0.15-1.2); Total Protein 5.8 g/dL (6.6-8.7)
[2020-06-03] MEDS: labetalol 5 mg/mL SDV 20mL 10 MG IVP (07:22)
[2020-06-03] MEDS: amlodipine 5 mg Tablet 10 MG PO (09:45)
[2020-06-03] MEDS: pantoprazole DR 40 mg Tablet PO (09:45)
[2020-06-03] MEDS: gabapentin 300 mg Capsule PO ×3 (09:45→20:01)
[2020-06-03] MEDS: metoprolol succinate ER (24 HR) 50 mg Tablet 75 MG PO (09:47)
[2020-06-03] MEDS: atorvastatin 40 mg Tablet 20 MG PO (09:47)
[2020-06-03] MEDS: HYDROcodone-acetaminophen 5-325 mg Tablet 1 TAB PO (12:27)
[2020-06-03] MEDS: hyDRALAzine 20 mg/mL INJ 1 mL 5 MG IVP ×2 (12:37→14:45)
--- NOTE | 2020-06-03 13:29 | P.PN_ITS ---
Subjective Subjective: Interval history: She is somewhat confused this morning. Earlier again was having headache. Currently denies. Denies trouble breathing. Denies chest pain or pressure. No abdominal discomfort. Vitals/I&O/Wt Last Vital Signs Temp 99.0 F 06/03/20 12:00 Pulse 81 06/03/20 12:00 Resp 18 06/03/20 12:00 BP 190/88 06/03/20 13:04 Pulse Ox 94 06/03/20 12:00 06/02/20 06/03/20 06/03/20 22:59 06:59 14:59 Intake Total 1210 / 1390 250 / 1640 480 / 480 Output Total 450 / 450 Balance 1210 / 1390 250 / 1640 30 / 30 Physical Exam Const: COMMON NORMALS: no acute distress; negative for patient oriented x3 GENERAL APPEARANCE: cooperative, anxious and frail appearing ORIENTATION/CONSCIOUSNESS: Yes awake OTHER: Minimally hard of hearing. Easily startled. HENMT: COMMON NORMALS: oropharynx normal Neck/C-Spine: COMMON NORMALS: no meningeal signs and no JVD Resp: COMMON NORMALS: normal respiratory effort and clear to auscultation bilaterally AUSCULTATION: clear to auscultation bilaterally OTHER: Minimal wheeze L lung Cardio: COMMON NORMALS: no JVD, regular rhythm, S1 normal heart sound present, S2 normal heart sound present and No murmurs present (Cardio) RHYTHM: regular rhythm HEART SOUNDS: S1 normal heart sound present and S2 normal heart sound present GI: COMMON NORMALS: Normal to inspection, nondistended, normoactive bowel sounds present, Soft to palpation and non-tender PALPATION: Yes Soft to palpation Extremity: COMMON NORMALS: no joint enlargement and no pedal edema Neuro: COMMON NORMALS: moves all extremities; negative for patient oriented x3 SENSORIUM/ORIENTATION: Yes Orientation impaired (Somewhat fluctuating orientation) MENINGEAL SIGNS: Yes no meningeal signs Skin: COMMON NORMALS: no rashes or lesions noted GENERAL SKIN EXAM: no rashes or lesions noted Data : 06/03/20 05:40 06/03/20 05:40 Micro: Microbiology 05/31/20 21:30 Blood Culture - Preliminary Blood Methicillin Resis Staph Aureus 06/01/20 01:22 Group A Streptococcus Rapid Screen - Final Throat 06/03/20 05:40 Blood Culture - Preliminary Blood SPECIMEN COLLECTED 06/03/20 05:48 Blood Culture - Preliminary Blood SPECIMEN COLLECTED 06/02/20 17:23 Blood Culture - Preliminary Blood SPECIMEN COLLECTED 06/02/20 16:40 Blood Culture - Preliminary Blood SPECIMEN COLLECTED 06/02/20 05:12 Enteric Pathogens (PCR) - Final Stool Routine Collection Parasite Antigen Panel - Final C.difficile Toxin B Gene (PCR) - Final A&P Assessment and plan (1) Hypertensive urgency: Severe hypertension, appears possibly symptomatic with headache, encephalopathy. This morning given labetalol IV. Blood pressure again elevated given hydralazine IV, with transient improvement. Still elevated systolic 190s. Recurrent hypertension, will initiate on labetalol drip. Will need to transfer to CSU or ICU. Status: Acute (2) Staphylococcus aureus bacteremia: MRSA bacteremia. Possibly from PNA, but cannot exclude other horbors of infection. As discussed with her son yesterday, will proceed with additional imaging. Renal function has improved. Discussed with CT department, will obtain CT chest abdomen pelvis with contrast, and CT lumbar, thoracic and cervical spine which should not require additional contrast to reduce contrast load due to acute kidney injury. Continue vancomycin. Continue to hold Eliquis, she has been having recurrent headache. He is having some confusion. CT head without obvious abscess. No hydrocephalus and so SENIOR TAX SPECIALIST shunt appears to be functioning well. However, with acute encephalopathy, and SENIOR TAX SPECIALIST shunt in place, would do LP once anticoagulation wears off. We will obtain TTE. Status: Acute (3) Pneumonia: Continue cefepime. Change linezolid to vancomycin. Status: Acute (4) Hypovolemic shock: Resolved. Today hypertensive urgency requiring IV hydralazine. Now hypertensive. Amlodipine was resumed. Will increase to 10 mg. Continue metoprolol. DC IV fluid. Discussed with her son. Status: Acute (5) Dehydration: DC IV hydration. Status: Acute (6) ACOSTA (acute kidney injury): Resolving. Now hypertensive. Encourage oral nutrition, hydration. Hyperkalemia resolved. Hold lisinopril Status: Acute (7) Encephalopathy: Acute encephalopathy secondary to infection resulting in delirium, con sideration also perhaps secondary to medication effect. Possible hypertensive encephalopathy. Antidepressants for now on hold. Linezolid was changed to vancomycin. Appears to also be taking benzodiazepine at home, will resume in case there is component of withdrawal. Status: Acute Additional A&P Information Diarrhea. Gastroenteritis: Enteric pathogen panel, C. difficile negative. Parasites negative. Sore throat: Strep throat negative rapid test. Pending culture. Attestations Medical Necessity Statement*: Continue admission for assessment management of hypertensive urgency, MRSA bacteremia, in the setting of ACOSTA, resolving sepsis, with acute encephalopathy. Coding Level of Care Code Acute Mail Handlers Supervisor for [facility] Fwd Diagnoses Hypertensive urgency I16.0 Staphylococcus aureus bacteremia R78.81; B95.61 Pneumonia J18.9 Hypovolemic shock R57.1 Dehydration E86.0 ACOSTA (acute kidney injury) N17.9 Encephalopathy G93.40
--- NOTE | 2020-06-03 13:48 | DCPLANNER ---
Pg 2 of IM explained to Pt's Son; Christopher Tong - [phone]. No questions, copy left in the room as agreed.
--- NOTE | 2020-06-03 15:25 | CTR_ITS ---
PROCEDURE INFORMATION: Exam: CT Thoracic Spine Without Contrast Exam date and time: 06/03/2020 4:04 PM Age: 74 years old Clinical indication: Abnormal findings; Abnormal lab test; Prior surgery; Surgery date: 6+ months; Surgery type: Hyst, appy, gb, thoracotomy, shunt; Patient HX: MRSA bacteremia; Additional info: MRSA bacteremia - alongside contrast ctap TECHNIQUE: Imaging protocol: Computed tomography images of the thoracic spine without contrast. Total images: 494 Radiation optimization: All CT scans at this facility use at least one of these dose optimization techniques: automated exposure control; mA and/or kV adjustment per patient size (includes targeted exams where dose is matched to clinical indication); or iterative reconstruction. COMPARISON: No relevant prior studies available. RADIATION DOSE METRICS: Total DLP (mGy-cm): 1094.69 FINDINGS: Vertebrae: No visible acute osseous abnormality. No visible fracture. Failure of segmentation/hemivertebra C7 and T1. Mild degenerative disease with mild spondylosis deformans. Increased thoracic kyphosis. Osteopenia/osteoporosis. No visible evidence of osteolytic or osteoblastic destructive process. Mild scoliotic curvature. Discs/Spinal canal/Neural foramina: No visible herniated nucleus pulposis or significant posterior annular disc bulge that results in central canal stenosis or neural foraminal stenosis. No significant disc protrusion. No severe spinal canal stenosis. No significant neural foraminal narrowing. Soft tissues: Unremarkable for age. CT/CT thoracic spin wo con* [id number] IMPRESSION: No visible acute osseous abnormality. Radiation Dose CTDIVOL = (mGy): DLP = 1094.69 (mGy-cm)
--- NOTE | 2020-06-03 15:25 | CTR_ITS ---
PROCEDURE INFORMATION: Exam: CT Chest With Contrast; Diagnostic Exam date and time: 06/03/2020 4:04 PM Age: 74 years old Clinical indication: Abnormal findings; Abnormal lab test; Other: , Rsa; Prior surgery; Surgery date: 6+ months; Surgery type: Hyst, appy, gb, thoracotomy, shunt; Patient HX: MRSA bacteremia TECHNIQUE: Imaging protocol: Diagnostic computed tomography of the chest with contrast. Total images: 465 Radiation optimization: All CT scans at this facility use at least one of these dose optimization techniques: automated exposure control; mA and/or kV adjustment per patient size (includes targeted exams where dose is matched to clinical indication); or iterative reconstruction. Contrast material: VISI 320; Contrast volume: 75 ml; Contrast route: INTRAVENOUS (IV); COMPARISON: CT chest con [id number] 02/22/2019 9:34 AM RADIATION DOSE METRICS: Total DLP (mGy-cm): 970.21 FINDINGS: Tubes, catheters and devices: Ventriculoperitoneal shunt. Lungs: Minimal dependent atelectasis lung bases. Mild peripheral acinar emphysema left lung apex. No visible evidence of overt congestive heart failure. Pleural spaces: Bilateral scant pleural effusions. Heart: Cardiomegaly. No visible pericardial effusion. Calcified mitral annulus. Moderately advanced coronary artery disease. Cor pulmonale. No visible central pulmonary embolism/pulmonary arterial thrombus. Aorta: The thoracic aorta is nonaneurysmal. No visible intimal flap or dissection. Moderate arterial sclerotic disease. Lymph nodes: No visible active mediastinal or hilar lymphadenopathy. Calcified complexes of antecedent granulomatous disease. Bones/joints: No visible active or acute osseous abnormality. Respiratory motion artifact. Soft tissues: Unremarkable. IMPRESSION: 1. Bilateral scant pleural effusions. 2. Minimal dependent atelectasis lung bases. 3. Cardiomegaly with moderately advanced coronary artery disease. 4. Antecedent granulomatous disease. PROCEDURE INFORMATION: Exam: CT Abdomen And Pelvis With Contrast Exam date and time: 06/03/2020 4:04 PM Age: 74 years old Clinical indication: Abnormal findings; Abnormal lab test; Other: , Rsa; Prior surgery; Surgery date: 6+ months; Surgery type: Hyst, appy, gb, thoracotomy, shunt; Patient HX: MRSA bacteremia TECHNIQUE: Imaging protocol: Computed tomography of the abdomen and pelvis with contrast. Radiation optimization: All CT scans at this facility use at least one of these dose optimization techniques: automated exposure control; mA and/or kV adjustment per patient size (includes targeted exams where dose is matched to clinical indication); or iterative reconstruction. Contrast material: VISI 320; Contrast volume: 75 ml; Contrast route: INTRAVENOUS (IV); COMPARISON: 1. CT chest wo con [id number] 02/22/2019 9:[address] abdomen pelvis wo con [id number] 05/31/2020 11:23:06 PM RADIATION DOSE METRICS: Total DLP (mGy-cm): 970.21 FINDINGS: Tubes, catheters and devices: Ventriculoperitoneal shunt. Liver: No visible hepatic mass or cystic structure. Gallbladder and bile ducts: Status post cholecystectomy. Pancreas: Mild pancreatic atrophy. No visible pancreatic ductal ectasia. Spleen: Normal. No splenomegaly. Adrenal glands: Adrenal glands unremarkable. Kidneys and ureters: Mild right pelvicaliectasis and ureterectasis believed secondary to mild ureterovesical reflux. No visible nephrolithiasis or ureterolithiasis. Atrophic left kidney with diminished contrast enhancement. No left-sided hydronephrosis or perinephric fluid identified. No left nephrolithiasis or ureterolithiasis identified. Cannot exclude left-sided pyelonephritis. Stomach and bowel: Liquid stool throughout the majority of the colonic tract. Mild mucosal thickening involving the descending colon from the splenic flexure to the rectosigmoid colon with concern for potential low-grade colitis. Nonobstructive bowel pattern. Mild diverticulosis coli without visible evidence for acute diverticulitis. No visible evidence of significant adynamic or reactive ileus. Appendix: Status post appendectomy. Intraperitoneal space: No visible pneumoperitoneum or intraperitoneal ascites. Vasculature: Portal vein patent. The abdominal aorta is nonaneurysmal. Moderately advanced arterial sclerotic disease. Lymph nodes: Unremarkable. No enlarged lymph nodes. Urinary bladder: Distended urinary bladder. No filling defect. No asymmetrical bladder wall thickening. Reproductive: Status post hysterectomy. Bones/joints: No visible active or acute osseous pathology. Degenerative disease and degenerative disc disease most advanced L3/4, L4/5, and L5/S1. Facet arthrosis. Soft tissues: Unremarkable. CT/CT chest abd pel w con* IMPRESSION: 1. Mild mucosal thickening involving the descending colon from the splenic flexure to the rectosigmoid colon with concern for potential low-grade colitis. 2. Atrophic left kidney with diminished contrast enhancement. Cannot exclude pyelonephritis. 3. Mild right pelvicaliectasis and ureterectasis believed secondary to mild ureterovesical reflux. 4. Markedly distended urinary bladder. 5. Mild diverticulosis coli without visible evidence for acute diverticulitis. 6. Other nonurgent, nonemergent, chronic, and age related findings as detailed in text above. Radiation Dose CTDIVOL = (mGy): DLP = 970.21~970.21 (mGy-cm)
--- NOTE | 2020-06-03 15:25 | CTR_ITS ---
PROCEDURE INFORMATION: Exam: CT Lumbar Spine Without Contrast Exam date and time: 06/03/2020 4:04 PM Age: 74 years old Clinical indication: Abnormal findings; Abnormal lab test; Prior surgery; Surgery date: 6+ months; Surgery type: Hyst, appy, gb, thoracotomy, shunt; Patient HX: MRSA bacteremia; Additional info: MRSA bacteremia - alongside contrast ctap TECHNIQUE: Imaging protocol: Computed tomography images of the lumbar spine without contrast. Total images: 350 Radiation optimization: All CT scans at this facility use at least one of these dose optimization techniques: automated exposure control; mA and/or kV adjustment per patient size (includes targeted exams where dose is matched to clinical indication); or iterative reconstruction. COMPARISON: [place] [id number] 10/27/2017 8:34 AM RADIATION DOSE METRICS: Total DLP (mGy-cm): 1544.52 FINDINGS: Vertebrae: No visible active or acute osseous pathology. Degenerative disease and degenerative disc disease most advanced L3/L4, L4/L:5, and L5/S1. Facet arthrosis. Osteopenia/osteoporosis. No visible spondylolysis or spondylolisthesis. Minimal scoliotic curvature. Discs/Spinal canal/Neural foramina: Marked spinal stenosis L4/L5 secondary to ligamentum flavum hypertrophy and facet arthrosis aggravated by a mild posterior disc bulge osteophyte complex. Soft tissues: Unremarkable. CT/CT lumbar spine wo con* [id number] IMPRESSION: 1. No visible acute osseous abnormality. 2. Marked spinal stenosis L4/L5 secondary to ligamentum flavum hypertrophy and facet arthrosis aggravated by a mild posterior disc bulge osteophyte complex. Radiation Dose CTDIVOL = (mGy): DLP = 1544.52 (mGy-cm)
--- NOTE | 2020-06-03 15:25 | CTR_ITS ---
PROCEDURE INFORMATION: Exam: CT Cervical Spine Without Contrast Exam date and time: 06/03/2020 4:04 PM Age: 74 years old Clinical indication: Abnormal findings; Abnormal lab test; Other: , Rsa; Prior surgery; Surgery date: 6+ months; Surgery type: Hyst, appy, gb, thoracotomy, shunt; Patient HX: MRSA bacteremia; Additional info: MRSA bacteremia - alongside contrast ctap TECHNIQUE: Imaging protocol: Computed tomography images of the cervical spine without contrast. Radiation optimization: All CT scans at this facility use at least one of these dose optimization techniques: automated exposure control; mA and/or kV adjustment per patient size (includes targeted exams where dose is matched to clinical indication); or iterative reconstruction. COMPARISON: CT Cervical Spine wo* [id number] 02/18/2019 5:07 PM RADIATION DOSE METRICS: Total DLP (mGy-cm): 310.75 FINDINGS: Bones/joints: There is no fracture of the cervical spine. Vertebral alignment is normal. 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 There is also fusion across the facets on the left at this level. 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 The spinous processes are partially fused at this level. . Discs/Spinal canal/Neural foramina: There is spondylosis and disc space narrowing from C4-C5 to C6-C7 with small posterior osteophytes and disc bulges. There are small subchondral cysts. There is no evidence of endplate erosion or sclerosis No central spinal stenosis. There is foraminal stenosis at these levels more severe on the right. Lungs: Lung apices are normal. Soft tissues: Unremarkable. CT/CT cervical spin wo con* [id number] IMPRESSION: 1. No evidence of infectious process in the cervical spine. 2. Degenerative findings described above. 3. 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 Radiation Dose CTDIVOL = (mGy): DLP = 310.75 (mGy-cm)
[2020-06-03] MEDS: iodixanol 320 mg/mL 100mL Btl IV (16:22)
[2020-06-03] MEDS: labetalol 300 MG in sodium chloride 0.9% 240 ML 30 MG IV ×2 (17:20→22:59)
[2020-06-03] MEDS: montelukast sodium 10 mg Tablet PO (20:01)
[2020-06-03] MEDS: vancomycin 500 MG in sodium chloride 0.9% (plus) 100 ML 200 MG IV (20:01)
[2020-06-04] VITALS (100 sets, daily range): BP systolic 111–181; BP diastolic 55–110; PULSE 59–81; RESP 12–32; TEMP 36.8–37.2; O2SAT 90–100
[2020-06-04] MEDS: cefepime 1,000 MG in sodium chloride 0.9% (plus) 50 ML 100 MG IV ×2 (01:01→15:10)
[2020-06-04 04:39] LABS: Basophils % 0.4 %; Eosinophils # 0.2 10^3/uL (0.0-0.8); Hematocrit 32.2 % (37.0-47.0); Hemoglobin 9.9 g/dL (11.5-15.3); Lymphocytes # 1.6 10^3/uL (0.8-4.8); Lymphocytes % 21.8 %; Mean Corpuscular HGB Conc 30.7 g/dL (30.0-36.0); Mean Corpuscular Hemoglobin 27.4 pg (28.0-34.0); Mean Corpuscular Volume 89.2 fL (81-99); Monocytes # 0.4 10^3/uL (0.2-0.9); Monocytes % 5.8 %; Neutrophils # 5.14 10^3/uL (1.8-7.7); Neutrophils % 69.6 %; Nucleated Red Blood Cells % 0 %; Platelet Count 294 10^3/cmm (130-400); Red Blood Count 3.61 10^6/uL (4.1-5.3); Red Cell Distribution Width 16.2 % (12.1-15.1); White Blood Count 7.4 10^3/uL (4.0-10.0)
[2020-06-04 05:01] LABS: Alanine Aminotransferase 10 U/L (0-33); Albumin Level 3.1 g/dL (3.5-5.2); Alkaline Phosphatase 77 IU/L (35-105); Anion Gap 16.5 (5-19); Aspartate Amino Transferase 7 U/L (0-32); Blood Urea Nitrogen 10 mg/dL (8-23); Calcium 8.4 mg/dL (8.5-10.5); Carbon Dioxide 23 mmol/L (22-29); Chloride 103 mmol/L (98-107); Globulin 2.4 g/dL (1.3-4.6); Glucose 113 mg/dL (65-115); Osmolality Calculated 288 mOsm/kg (285-295); Potassium 3.5 mmol/L (3.5-5.1); Sodium 139 mmol/L (136-145); Total Bilirubin 0.2 mg/dL (0.15-1.2); Total Protein 5.5 g/dL (6.6-8.7)
[2020-06-04] MEDS: gabapentin 300 mg Capsule PO ×3 (08:38→20:19)
[2020-06-04] MEDS: atorvastatin 40 mg Tablet 20 MG PO (08:38)
[2020-06-04] MEDS: pantoprazole DR 40 mg Tablet PO ×2 (08:38→17:15)
[2020-06-04] MEDS: amlodipine 5 mg Tablet 10 MG PO (08:38)
[2020-06-04] MEDS: labetalol 300 MG in sodium chloride 0.9% 240 ML 30 MG IV (09:31)
--- NOTE | 2020-06-04 10:09 | PM.PN ---
Subjective Subjective: Interval history: She is confused, but currently is not anxious, cooperative with a few basic requests, but unable to give review of systems or history. Appears comfortable and doing pretty images on the screen of the echocardiography machine. Vitals/I&O/Wt Last Vital Signs Temp 98.5 F 06/04/20 02:45 Pulse 72 06/04/20 09:00 Resp 19 H 06/04/20 09:00 BP 146/74 06/04/20 09:00 Pulse Ox 97 06/04/20 07:45 06/03/20 06/04/20 06/04/20 22:59 06:59 14:59 Intake Total 450.0 / 930.0 50 / 980.0 500 / 500 Output Total 0 / 450 Balance 450.0 / 480.0 50 / 530.0 500 / 500 Physical Exam Const: COMMON NORMALS: no acute distress and alert; negative for patient oriented x3 GENERAL APPEARANCE: cooperative, comfortable and frail appearing ORIENTATION/CONSCIOUSNESS: Yes awake and Yes confused HENMT: COMMON NORMALS: oropharynx normal Neck/C-Spine: COMMON NORMALS: no meningeal signs and no JVD Resp: COMMON NORMALS: normal respiratory effort and clear to auscultation bilaterally AUSCULTATION: clear to auscultation bilaterally Cardio: COMMON NORMALS: no JVD, regular rhythm, S1 normal heart sound present, S2 normal heart sound present and No murmurs present (Cardio) RHYTHM: regular rhythm HEART SOUNDS: S1 normal heart sound present and S2 normal heart sound present GI: COMMON NORMALS: Normal to inspection, nondistended, normoactive bowel sounds present, Soft to palpation and non-tender PALPATION: Yes Soft to palpation Extremity: COMMON NORMALS: no joint enlargement and no pedal edema Neuro: COMMON NORMALS: moves all extremities; negative for patient oriented x3 SENSORIUM/ORIENTATION: Yes alert and Yes Orientation impaired (Somewhat fluctuating orientation) MENINGEAL SIGNS: Yes no meningeal signs Skin: COMMON NORMALS: no rashes or lesions noted GENERAL SKIN EXAM: no rashes or lesions noted Data : 06/04/20 03:32 06/04/20 03:32 Micro: Microbiology 06/03/20 05:40 Blood Culture - Preliminary Blood NEGATIVE TO DATE 06/03/20 05:48 Blood Culture - Preliminary Blood NEGATIVE TO DATE 06/02/20 17:23 Blood Culture - Preliminary Blood NEGATIVE TO DATE 06/02/20 16:40 Blood Culture - Preliminary Blood NEGATIVE TO DATE 05/31/20 21:30 Blood Culture - Preliminary Blood Methicillin Resis Staph Aureus 06/01/20 01:22 Group A Streptococcus Rapid Screen - Final Throat A&P Assessment and plan (1) Hypertensive urgency: BPs better with labetalol. Will treat urinary retention, continue antibiotics, supportive care. Continue amlodipine. Add hydralazine PO. Resume metoprolol 50 mg twice daily. If renal function continues to improve, consider resuming lisinopril. Status: Acute (2) Staphylococcus aureus bacteremia: CT chest abdomen pelvis with contrast, as well as CT CTL spine done together to allow for contrast evaluation appear to show improvement in pneumonia. Minimal pleural effusions. Possibility of mild colitis in descending colon. Urinary retention. No obvious focus of infection. Pneumonia may have been the source of entry, in which case, if no further foci or vegetations identified, will treat for uncomplicated MRSA bacteremia. TTE taken today. Consider [place] to exclude complicated MRSA bacteremia. Anticoagulation has also been held for additional evaluation of possible MUSIC ASSISTANT infection. Discussed with her son. Tomorrow LP should be possibly both in terms of anticoagulation as well as availability of radiology/rim buster. Tomorrow also consider consultation with infectious disease or discussion with neurology with regards to target for CSF acquisition. Discussed with her son, sometimes CSF could be obtained from the shunt directly, although question is whether this is as likely to show infection. Consider discussion with specialist with regards to whether to obtain fluid from LP, shunt if possible, or both. Continue vancomycin. If no growth on repeat cultures consider obtaining PICC line when available on Friday for antibiotic infusions. Status: Acute (3) Pneumonia: Continue cefepime. Changed linezolid to vancomycin. Status: Acute (4) Encephalopathy: Acute encephalopathy secondary to infection resulting in delirium, consideration also perhaps secondary to medication effect. Possible hypertensive encephalopathy. Antidepressants for now on hold. Linezolid was changed to vancomycin. Appears to also be taking benzodiazepine at home, will resume in case there is component of withdrawal. Status: Acute (5) Urinary retention: Noted on CT abdomen pelvis. Noted mild right pelviectasis and ureterectasis believed secondary to mild ureterovesical reflux. Would make me think whether she may have recurrent urinary retention needing some of this more chronic changes. Dubose catheter was requested for decompression, although this morning does not have one placed. Requested to have catheter inserted, UA will be done at the same time. Would benefit from follow-up with urology. Lower possibility of neurogenic bladder secondary to spinal stenosis noted on imaging discussed with her son. Monitor for symptoms. Status: Acute (6) Colitis: Possible low-grade colitis incidentally noted on CT abdomen pelvis with mild degree of mucosal thickening in descending colon from splenic flexure to the rectosigmoid. May benefit from coloscopic reevaluation after resolution. Status: Acute (7) ACOSTA (acute kidney injury): Resolving. Now hypertensive. Encourage oral nutrition, hydration. Hyperkalemia resolved. Hold lisinopril Status: Acute (8) Hypovolemic shock: On admit. Resolved. Status: Acute (9) Dehydration: Resolved. Status: Acute Additional A&P Information Diarrhea. Gastroenteritis: Enteric pathogen panel, C. difficile negative. Parasites negative. Sore throat: Strep throat negative rapid test. Pending culture. Incidentally noted L4/L5 spinal stenosis. 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 We will keep low dose heparin VT prophylaxis for now until work-up of MRSA bacteremia are completed to reduce risk of bleeding in the lower likelihood of also any kind of septic embolization. Attestations Medical Necessity Statement*: Continue admission for optimization of blood pressure control with hypertensive urgency, assessment management of Staph aureus bacteremia in the presence of GUILLOTINE OPERATOR shunt, pneumonia, urinary retention, with acute encephalopathy, and additional comorbidities as above. Coding Level of Care Code Acute Labor Relations Representative for [facility] Fwd Exam Comprehensive Diagnoses Hypertensive urgency I16.0 Staphylococcus aureus bacteremia R78.81; B95.61 Pneumonia J18.9 Encephalopathy G93.40 Urinary retention R33.9 Colitis K52.9 ACOSTA (acute kidney injury) N17.9 Hypovolemic shock R57.1 Dehydration E86.0
[2020-06-04 10:41] LABS: Add Urine Microscopic? NO
[2020-06-04 11:08] LABS: Bilirubin Urine Neg (Negative); Blood Urine Neg (Negative); Glucose Urine UA Norm (Normal); Ketones Urine 1+ (Negative); Leukocyte Esterase Urine Negative (Negative); Nitrate Urine Negative (Negative); Protein Urine Neg (Negative); Urine Appearance Clear (CLEAR); Urine Color Yellow (Yellow); Urobilinogen Urine Norm (Negative); pH Urine 5 (5-7)
--- NOTE | 2020-06-04 11:42 | PC.NURSE ---
complete bath done and linen change done at this time orellana inserted and urine spec to lab
--- NOTE | 2020-06-04 13:36 | USCV_ITS ---
Mago Tong Age: 74 Gender: F : 1945 Exam Date: 06/03/2020 13:53 Ordering Phys: Jai Campos MD Technologist: Tee Bautista [place] [facility] [place]: MRSA bacteremia - assess valves, any perivalvular pathology BP: 159 / 92 HR: 74 Rhythm: Sinus Technical Quality: Fair MEASUREMENTS (Male / Female) Normal Values 2D ECHO LV Diastolic Diameter PLAX 4.1 cm 4.2 - 5.9 / 3.9 - 5.3 cm LV Systolic Diameter PLAX 2.6 cm LV Chamber Size 4.3 cm IVS Diastolic Thickness 1.3 cm 0.6 - 1.0 / 0.6 - 0.9 cm IVS Systolic Thickness 2.3 cm LVPW Diastolic Thickness 1.1 cm 0.6 - 1.0 / 0.6 - 0.9 cm LVPW Systolic Thickness 1.3 cm RV Chamber Size 3.5 cm LVOT Diameter 1.8 cm LV Ejection Fraction 2D Teich 66.9 % LA Diameter 4.5 cm LA Width 3.9 cm LA Height 5.5 cm RA Width 3.4 cm RA Height 4.5 cm Aorta at Sinotubular Diameter 2.4 cm M-MODE LV Diastolic Diameter MM 5.6 cm 4.2 - 5.9 / 3.9 - 5.3 cm LV Systolic Diameter MM 3.9 cm LV Ejection Fraction MM Teich 55.3 % IVS Diastolic Thickness MM 1.3 cm 0.6 - 1.0 / 0.6 - 0.9 cm IVS Systolic Thickness MM 1.3 cm LVPW Diastolic Thickness MM 1.2 cm 0.6 - 1.0 / 0.6 - 0.9 cm LVPW Systolic Thickness MM 1.5 cm RV Diastolic Diameter MM 1.2 cm Aortic Annulus Diameter 3.1 cm LA Ao Ratio MM 1.8 MV E Point Septal Separation 0.3 cm DOPPLER AV Peak Velocity 124.0 cm/s LVOT Peak Velocity 101.0 cm/s AV Area Cont Eq vti 2.2 cm squared AV Area Cont Eq pk 2.1 cm squared MV Area PHT 4.5 cm squared Mitral E to A Ratio 1.3 MV E' Velocity 57.5 cm/s Mitral E to MV E' Ratio 12.1 Mitral E to LV E' Lateral Ratio 9.6 Mitral E to LV E' Septal Ratio 16.8 TR Peak Velocity 295.0 cm/s TR Peak Gradient 34.8 mmHg TV Peak E Velocity 84.0 cm/s Right Atrial Pressure 3.0 mmHg Pulmonary Artery Systolic Pressu 37.8 mmHg PV Peak Velocity 94.0 cm/s RV Acceleration Time 0.1 s RV Ejection Time 0.3 s RV AcT/ET 0.2 FINDINGS Left Ventricle Normal left ventricular cavity size. Normal left ventricular systolic function. Left ventricular ejection fraction is estimated at 65-70 %. Although no diagnostic regional wall motion abnormality could be advised, this possibility cannot be completely excluded. Grade II diastolic dysfunction, moderately elevated filling pressures. Right Ventricle Normal right ventricular size and systolic function. Right ventricular systolic pressure 37.8 mmHg. Right Atrium Normal right atrial size. Right atrial pressure estimated at 3 mmHg. Left Atrium Mildly increased left atrial size. Mitral Valve Moderate mitral annular calcification. Thickened mitral valve. Mild mitral valve regurgitation. Aortic Valve No aortic valve stenosis. Trace aortic valve regurgitation. Tricuspid Valve Structurally normal tricuspid valve. Trace tricuspid valve regurgitation. Pulmonic Valve Structurally normal pulmonic valve. No pulmonary valve stenosis. No significant pulmonary valve regurgitation. Pericardium No pericardial effusion. Aorta Normal-sized inferior vena cava with normal respiratory variation. CONCLUSIONS 1. This is a technically difficult study. 2. Normal left ventricular cavity size and systolic function. Left ventricular ejection fraction is estimated at 65-70 %. Although no diagnostic regional wall motion abnormality could be advised, this possibility cannot be completely excluded. Grade II diastolic dysfunction, moderately elevated filling pressures. 3. Mild pulmonary hypertension with pulmonary artery pressure estimated at 38 mmHg. 4. Mild mitral valve regurgitation. 5. No evidence of any valvular vegetation based on this technically difficult study. [place] is recommended if clinically indicated. Heena Karimi MD (Electronically Signed) Final Date: 05 June 2020 12:15 S
[2020-06-04] MEDS: heparin 5,000 unit/mL INJ 1 mL 5000 UNIT SUBCUT ×2 (13:59→20:08)
[2020-06-04] MEDS: hyDRALAzine 25 mg Tablet PO ×2 (13:59→20:20)
[2020-06-04] MEDS: vancomycin 500 MG in sodium chloride 0.9% (plus) 100 ML 200 MG IV (20:19)
[2020-06-04] MEDS: montelukast sodium 10 mg Tablet PO (20:20)
[2020-06-05] VITALS (98 sets, daily range): BP systolic 102–192; BP diastolic 51–98; PULSE 63–92; RESP 11–30; TEMP 36.4–36.7; O2SAT 87–100
[2020-06-05] MEDS: cefepime 1,000 MG in sodium chloride 0.9% (plus) 50 ML 100 MG IV ×2 (01:44→14:20)
[2020-06-05] MEDS: heparin 5,000 unit/mL INJ 1 mL 5000 UNIT SUBCUT ×3 (02:27→17:59)
[2020-06-05 05:48] LABS: Basophils # 0.1 10^3/uL (0.0-0.1); Basophils % 0.7 %; Eosinophils # 0.3 10^3/uL (0.0-0.8); Eosinophils % 2.9 %; Hematocrit 35.2 % (37.0-47.0); Hemoglobin 10.6 g/dL (11.5-15.3); Lymphocytes # 2.4 10^3/uL (0.8-4.8); Lymphocytes % 27.5 %; Mean Corpuscular HGB Conc 30.1 g/dL (30.0-36.0); Mean Corpuscular Hemoglobin 27.2 pg (28.0-34.0); Mean Corpuscular Volume 90.3 fL (81-99); Mean Platelet Volume 9.9 fL (7.4-10.4); Monocytes # 0.5 10^3/uL (0.2-0.9); Monocytes % 5.9 %; Neutrophils # 5.39 10^3/uL (1.8-7.7); Neutrophils % 62.5 %; Nucleated Red Blood Cells % 0 %; Platelet Count 341 10^3/cmm (130-400); Red Cell Distribution Width 16.2 % (12.1-15.1); White Blood Count 8.6 10^3/uL (4.0-10.0)
[2020-06-05 06:09] LABS: Alanine Aminotransferase 9 U/L (0-33); Albumin Level 3.3 g/dL (3.5-5.2); Alkaline Phosphatase 76 IU/L (35-105); Anion Gap 13.3 (5-19); Aspartate Amino Transferase 8 U/L (0-32); Blood Urea Nitrogen 10 mg/dL (8-23); Calcium 8.5 mg/dL (8.5-10.5); Carbon Dioxide 26 mmol/L (22-29); Chloride 105 mmol/L (98-107); Globulin 2.5 g/dL (1.3-4.6); Glucose 102 mg/dL (65-115); Osmolality Calculated 291 mOsm/kg (285-295); Potassium 3.3 mmol/L (3.5-5.1); Sodium 141 mmol/L (136-145); Total Bilirubin 0.2 mg/dL (0.15-1.2); Total Protein 5.8 g/dL (6.6-8.7)
[2020-06-05] MEDS: pantoprazole DR 40 mg Tablet PO ×2 (08:06→17:59)
[2020-06-05] MEDS: hyDRALAzine 25 mg Tablet PO ×3 (08:06→20:05)
[2020-06-05] MEDS: gabapentin 300 mg Capsule PO ×3 (08:06→20:05)
[2020-06-05] MEDS: amlodipine 5 mg Tablet 10 MG PO (08:06)
[2020-06-05] MEDS: atorvastatin 40 mg Tablet 20 MG PO (08:06)
[2020-06-05] MEDS: metoprolol tartrate 50 mg Tablet PO ×2 (09:33→20:05)
--- NOTE | 2020-06-05 09:35 | PC.CHAP ---
Pastoral Care Encounter/Spiritual Assessment Type of Contact [] Declined safety and security manager visit [] Patient/Family/Request visit [] Outpatient visit [] Follow-up visit [] Physician referral [] Code/Alert [x] Routine visit [] Staff referral [] Actively dying [] Patient sleeping [] Family support [] [] Out of room [] Palliative care [] [] Receiving care in room [] Pre-surgical visit [] Trauma [] Long length of stay [x] ICU visit [] Other: Relational/Emotional Strength [] Patient feels connected with others/family/visitors/staff [] Distress [] Loneliness/isolation [] Abandonment Spirituality of Patient [] Person of Chelsie [] Attends Bahai of their Chelsie [] Believes in Prayer [] Reads Bible or Confucianist materials [] There are Spiritual issues to be addressed Automobile Relocation Engineer Interventions [x] Prayer [] Active listening [] Non-anxious presence [] Spiritual/emotional support [] Crisis/trauma care [] Spiritual counseling [] Bereavement support [] Provided bereavement packet [] Provided Bible/devotional materials [] Provided toy/stuffed animal, coloring book to patient or family member [] Provided Communion [] Anointing/[place] [] Salvation [x] Completed spiritual assessment [] Other: Impact on Illness or Injury [] Angry [] Fearful [] Anxious [] Often cries [] Exhaustion [] Unable to work [] Unable to attend judaism [] Unable to walk/stand [] Unable to read [] Unable to drive [] Unable to eat/drink [] Unable to sleep [] Unable to be with family [] Patient intubated [] Other: Summary Time spent with patient
--- NOTE | 2020-06-05 11:32 | P.PN_ITS ---
Subjective Subjective: Interval history: Patient remains confused. She is alert to herself place and year. She denies any complaints. She is pleasant RN rounded with me. Medications: Reviewed: Yes Vitals/I&O/Wt Last Vital Signs Temp 98.1 F 06/05/20 09:00 Pulse 81 06/05/20 09:15 Resp 20 H 06/05/20 09:15 BP 161/85 06/05/20 09:15 Pulse Ox 94 06/05/20 09:15 06/04/20 06/05/20 06/05/20 22:59 06:59 14:59 Intake Total 1100 / 1600 50 / 1650 300 / 300 Output Total 1200 / 1200 600 / 1800 400 / 400 Balance -100 / 400 -550 / -150 -100 / -100 Physical Exam Const: COMMON NORMALS: no acute distress and average body habitus ORIENTATION/CONSCIOUSNESS: Yes awake, Yes oriented to person, Yes oriented to place, Yes oriented to time (Year only) and Yes confused HENMT: HEAD & SCALP: other (ORDER CONTROL CLERK BLOOD BANK shunt palpable. Nontender to palpation. No erythema noted.) Neck/C-Spine: COMMON NORMALS: no JVD Resp: COMMON NORMALS: normal respiratory effort and clear to auscultation bilaterally AUSCULTATION: clear to auscultation bilaterally Cardio: COMMON NORMALS: no JVD, regular rate, regular rhythm, S1 normal heart sound present and S2 normal heart sound present RATE: regular rate RHYTHM: regular rhythm HEART SOUNDS: S1 normal heart sound present and S2 normal heart sound present Extremity: COMMON NORMALS: no calf tenderness and no pedal edema Neuro: SENSORIUM/ORIENTATION: Yes oriented to person and Yes oriented to place Psych: ATTENTION/CONCENTRATION: Yes attention grossly intact ME PURVI/COGNITION: Yes memory grossly impaired and Yes cognition grossly impaired INSIGHT: Poor insight present (Psych) Data : 06/05/20 04:56 06/05/20 04:56 Micro: Microbiology 05/31/20 21:30 Blood Culture - Final Blood Methicillin Resis Staph Aureus 06/04/20 10:30 Legionella Urinary Antigen - Final Urine Catheterized 06/04/20 10:30 Bacterial Antigens - Final Urine Kidney 06/03/20 05:40 Blood Culture - Preliminary Blood NEGATIVE TO DATE 06/03/20 05:48 Blood Culture - Preliminary Blood NEGATIVE TO DATE A&P Assessment and plan (1) COPD (chronic obstructive pulmonary disease): Patient on 2 L nasal cannula currently at 99% FiO2. Will wean oxygen off and assess oxygen level with activity Status: Acute (2) GERD (gastroesophageal reflux disease): Patient on Protonix twice daily Status: Acute (3) Staphylococcus aureus bacteremia: Patient on vancomycin Status: Acute (4) Hypertensive urgency: Per RN report patient's blood pressures are labile. Patient was on a labetalol drip last night but this was discontinued for low blood pressure. She is scheduled to have metoprolol 50 twice daily Norvasc 10 daily hydralazine 25 3 times daily. Her metoprolol has been held due to a low blood pressure this morning. Will reassess later today. Status: Acute (5) Encephalopathy: Patient remains altered and confused. RN to call next of kin to find out baseline mental status. Status: Acute (6) Urinary retention: This was seen on CT she does have a Dubose catheter we will try to remove. And reassess. Status: Acute (7) Colitis: This was seen on CT. Will follow. Status: Acute (8) Pneumonia: Patient is on cefepime for pneumonia is suspected to be the source of bacteremia. We may be able to discontinue cefepime. Patient is MRSA and blood. Status: Acute (9) ACOSTA (acute kidney injury): Patient has normalized to a BUN of 10 and creatinine of 1.0. Status: Inactive (10) HTN (hypertension): As above patient is now hypertensive which is her home diagnosis. Status: Inactive Attestations Medical Necessity Statement*: Patient has been treated for sepsis and pneumonia. Currently with encephalopathy and unsure of baseline. Will likely need 48 hours to further evaluate. Coding Level of Care Code Acute Machinist Apprentice for [facility] Fwd History Expanded Problem Focused Exam Detailed Medical Decision Making High Complexity Diagnoses COPD (chronic obstructive pulmonary disease) J44.9 GERD (gastroesophageal reflux disease) K21.9 Staphylococcus aureus bacteremia R78.81; B95.61 Hypertensive urgency I16.0 Encephalopathy G93.40 Urinary retention R33.9 Colitis K52.9 Pneumonia J18.9 ACOSTA (acute kidney injury) N17.9 HTN (hypertension) I10
--- NOTE | 2020-06-05 15:05 | PC.SOCIAL ---
*IMM* Updated, patient received updated IMM.
[2020-06-05] MEDS: lisinopril 10 mg Tablet PO (17:59)
[2020-06-05] MEDS: potassium chloride oral liq 20 mEq/15 mL UDC PO (17:59)
[2020-06-05] MEDS: hyDRALAzine 20 mg/mL INJ 1 mL 10 MG IVP ×2 (17:59→22:35)
[2020-06-05] MEDS: vancomycin 500 MG in sodium chloride 0.9% (plus) 100 ML 200 MG IV (20:04)
[2020-06-05] MEDS: montelukast sodium 10 mg Tablet PO (20:05)
[2020-06-06] VITALS (85 sets, daily range): BP systolic 123–200; BP diastolic 57–110; PULSE 64–93; RESP 13–27; TEMP 36.4–37.4; O2SAT 85–100
[2020-06-06] MEDS: cefepime 1,000 MG in sodium chloride 0.9% (plus) 50 ML 100 MG IV ×2 (01:45→14:16)
[2020-06-06] MEDS: heparin 5,000 unit/mL INJ 1 mL 5000 UNIT SUBCUT ×3 (02:59→19:38)
[2020-06-06 05:35] LABS: Basophils # 0.1 10^3/uL (0.0-0.1); Basophils % 0.6 %; Eosinophils # 0.3 10^3/uL (0.0-0.8); Eosinophils % 2.4 %; Hematocrit 33.7 % (37.0-47.0); Hemoglobin 10.5 g/dL (11.5-15.3); Lymphocytes # 2.7 10^3/uL (0.8-4.8); Lymphocytes % 25.1 %; Mean Corpuscular HGB Conc 31.2 g/dL (30.0-36.0); Mean Corpuscular Hemoglobin 27.9 pg (28.0-34.0); Mean Corpuscular Volume 89.6 fL (81-99); Mean Platelet Volume 9.9 fL (7.4-10.4); Monocytes # 0.7 10^3/uL (0.2-0.9); Monocytes % 6.8 %; Neutrophils # 6.81 10^3/uL (1.8-7.7); Neutrophils % 64.5 %; Nucleated Red Blood Cells % 0 %; Platelet Count 356 10^3/cmm (130-400); Red Blood Count 3.76 10^6/uL (4.1-5.3); Red Cell Distribution Width 16.1 % (12.1-15.1); White Blood Count 10.6 10^3/uL (4.0-10.0)
[2020-06-06 05:58] LABS: Alanine Aminotransferase 6 U/L (0-33); Albumin Level 3.4 g/dL (3.5-5.2); Alkaline Phosphatase 84 IU/L (35-105); Anion Gap 10.3 (5-19); Aspartate Amino Transferase 7 U/L (0-32); Blood Urea Nitrogen 8 mg/dL (8-23); Calcium 8.9 mg/dL (8.5-10.5); Carbon Dioxide 29 mmol/L (22-29); Chloride 105 mmol/L (98-107); Globulin 2.4 g/dL (1.3-4.6); Glucose 121 mg/dL (65-115); Osmolality Calculated 292 mOsm/kg (285-295); Potassium 3.3 mmol/L (3.5-5.1); Sodium 141 mmol/L (136-145); Total Bilirubin 0.2 mg/dL (0.15-1.2); Total Protein 5.8 g/dL (6.6-8.7)
[2020-06-06] MEDS: lisinopril 20 mg Tablet PO ×2 (08:28→17:32)
[2020-06-06] MEDS: gabapentin 300 mg Capsule PO ×3 (08:28→20:02)
[2020-06-06] MEDS: HYDROcodone-acetaminophen 5-325 mg Tablet 1 TAB PO ×2 (08:28→20:04)
[2020-06-06] MEDS: pantoprazole DR 40 mg Tablet PO ×2 (08:29→17:32)
[2020-06-06] MEDS: atorvastatin 40 mg Tablet 20 MG PO (08:29)
[2020-06-06] MEDS: metoprolol tartrate 50 mg Tablet PO ×2 (08:29→20:02)
[2020-06-06] MEDS: amlodipine 5 mg Tablet 10 MG PO (08:30)
[2020-06-06] MEDS: hyDRALAzine 50 mg Tablet PO ×3 (08:30→20:02)
[2020-06-06] MEDS: potassium chloride oral liq 20 mEq/15 mL UDC 40 MEQ PO ×2 (08:31→17:31)
[2020-06-06] MEDS: hyDRALAzine 20 mg/mL INJ 1 mL 10 MG IVP (08:32)
[2020-06-06 08:34] LABS: Magnesium 1.2 mg/dL (1.7-2.3)
--- NOTE | 2020-06-06 09:30 | PC.CHAP ---
Pastoral Care Encounter/Spiritual Assessment Type of Contact [] Declined deck worker visit [] Patient/Family/Request visit [] Outpatient visit [] Follow-up visit [] Physician referral [] Code/Alert [x] Routine visit [] Staff referral [] Actively dying [] Patient sleeping [] Family support [] [] Out of room [] Palliative care [] [] Receiving care in room [] Pre-surgical visit [] Trauma [] Long length of stay [x] ICU visit [] Other: Relational/Emotional Strength [] Patient feels connected with others/family/visitors/staff [] Distress [] Loneliness/isolation [] Abandonment Spirituality of Patient [] Person of Chelsie [] Attends Quaker of their Chelsie [] Believes in Prayer [] Reads Bible or Denominational materials [] There are Spiritual issues to be addressed Safety Pin Assembling Machine Operator Interventions [x] Prayer [] Active listening [] Non-anxious presence [] Spiritual/emotional support [] Crisis/trauma care [] Spiritual counseling [] Bereavement support [] Provided bereavement packet [] Provided Bible/devotional materials [] Provided toy/stuffed animal, coloring book to patient or family member [] Provided Communion [] Anointing/[place] [] Salvation [x] Completed spiritual assessment [] Other: Impact on Illness or Injury [] Angry [] Fearful [] Anxious [] Often cries [] Exhaustion [] Unable to work [] Unable to attend shinto [] Unable to walk/stand [] Unable to read [] Unable to drive [] Unable to eat/drink [] Unable to sleep [] Unable to be with family [] Patient intubated [] Other: Summary Time spent with patient
[2020-06-06] MEDS: magnesium sulfate premix 4 GM/100 ML PREMIX IV (10:27)
--- NOTE | 2020-06-06 15:18 | P.PN_ITS ---
Subjective Subjective: Interval history: RN rounds with me patient is without complaint. She denies headache chest pain shortness of breath nausea change in bowel habits. Medications: Reviewed: Yes Vitals/I&O/Wt Last Vital Signs Temp 98.4 F 06/06/20 14:30 Pulse 71 06/06/20 14:30 Resp 16 06/06/20 14:30 BP 160/59 06/06/20 14:30 Pulse Ox 95 06/06/20 14:30 06/06/20 06/06/20 06/06/20 06:59 14:59 22:59 Intake Total 50 / 1100 940 / 940 Output Total 650 / 1850 600 / 600 Balance -600 / -750 340 / 340 Physical Exam Const: COMMON NORMALS: no acute distress, average body habitus and alert ORIENTATION/CONSCIOUSNESS: Yes awake, Yes oriented to person and Yes oriented to place OTHER: Not as confused today HENMT: HEAD & SCALP: other (MEDICAL RECORDS COORDINATOR shunt palpable. Nontender to palpation. No erythema noted.) Resp: COMMON NORMALS: normal respiratory effort and clear to auscultation bilaterally AUSCULTATION: clear to auscultation bilaterally Cardio: COMMON NORMALS: regular rhythm, S1 normal heart sound present and S2 normal heart sound present RHYTHM: regular rhythm HEART SOUNDS: S1 normal heart sound present and S2 normal heart sound present Extremity: COMMON NORMALS: no calf tenderness and no pedal edema Neuro: SENSORIUM/ORIENTATION: Yes alert, Yes oriented to person and Yes oriented to place Psych: ATTENTION/CONCENTRATION: Yes attention grossly intact MEMORY/COGNITION: Yes memory grossly impaired and Yes cognition grossly impaired INSIGHT: Poor insight present (Psych) Urinary Catheter Management^: Dubose: Cath Placed During This Visit: yes, but has since been removed by the nurse Reason for Continuing Indwelling Catheter: Accurate Measurement of Urinary Output in Critically Ill Patients Date Urinary Catheter Removed: 06/06/20 Time Urinary Catheter Discontinued: 10:40 Data : 06/06/20 04:21 06/06/20 04:21 Micro: Microbiology 05/31/20 21:35 Blood Culture - Final Blood NO GROWTH AFTER 5 DAYS 05/31/20 21:30 Blood Culture - Final Blood Methicillin Resis Staph Aureus A&P Assessment and plan (1) COPD (chronic obstructive pulmonary disease): Patient on 2 L nasal cannula currently at 95% FiO2. Will wean oxygen off and assess oxygen level with activity Status: Acute (2) GERD (gastroesophageal reflux disease): Patient remains on Protonix twice daily Status: Acute (3) Staphylococcus aureus bacteremia: MRSA in 2/4 cultures. Patient on vancomycin. WBC jumped to 10.6 from 7- 8000. Second set of blood cultures are negative. Continue Vancomycin. Will add rifampin as Vancomycin does not penetrate the lungs well. Status: Acute (4) Hypertensive urgency: Patient was on a labetalol drip 2 nights ago but this was discontinued for low blood pressure. Following changes; creased hydralazine to 50 mg twice daily, increased Prinivil to 20 mg twice daily. Change to the metoprolol 50 mg twice daily. And Norvasc 10 mg daily. As needed hydralazine for blood pressure over 180. The time of this dictation she is now 160/59. Status: Acute (5) Encephalopathy: Patient remains altered and confused. RN yesterday called son who confirmed early dementia. Thus I think she has an acute delirium on top of her dementia due to acute illness. Her mental status seems to be improving Status: Acute (6) Urinary retention: This was seen on CT she does have a Dubose catheter. We will remove catheter today. And monitor with bladder scans as needed Status: Acute (7) Colitis: This was seen on CT. she has no complaints of abdominal pain or tenderness on palpation. However we will keep this in mind with the elevated white blood cell count Status: Acute (8) Pneumonia: Patient is on cefepime for pneumonia is suspected to be the source of bacteremia. Status: Acute (9) Chronic anticoagulation: for history of PE, eliquis was on hold on admission. Will resume. Eliquis 5 mg bid. Status: Acute Attestations Medical Necessity Statement*: Hypertensive urgency Coding Level of Care Code Acute Diesel Fitter Mechanic for [facility] Fwd Exam Detailed Diagnoses COPD (chronic obstructive pulmonary disease) J44.9 GERD (gastroesophageal reflux disease) K21.9 Staphylococcus aureus bacteremia R78.81; B95.61 Hypertensive urgency I16.0 Encephalopathy G93.40 Urinary retention R33.9 Colitis K52.9 Pneumonia J18.9 Chronic anticoagulation Z79.01
[2020-06-06] MEDS: montelukast sodium 10 mg Tablet PO (20:02)
[2020-06-06 20:55] LABS: Vancomycin Trough 9.3 ug/mL (10-15)
[2020-06-06] MEDS: vancomycin 500 MG in sodium chloride 0.9% (plus) 100 ML 200 MG IV (21:22)
[2020-06-07] VITALS (25 sets, daily range): BP systolic 152–183; BP diastolic 56–124; PULSE 61–100; RESP 12–28; TEMP 36.6–37.8; O2SAT 91–100
[2020-06-07] MEDS: cefepime 1,000 MG in sodium chloride 0.9% (plus) 50 ML 100 MG IV ×2 (01:15→13:14)
[2020-06-07] MEDS: hyDRALAzine 20 mg/mL INJ 1 mL 10 MG IVP ×2 (01:44→10:44)
[2020-06-07 04:03] LABS: Basophils # 0.1 10^3/uL (0.0-0.1); Basophils % 0.6 %; Eosinophils # 0.3 10^3/uL (0.0-0.8); Eosinophils % 2.8 %; Hemoglobin 10.8 g/dL (11.5-15.3); Lymphocytes # 2.6 10^3/uL (0.8-4.8); Lymphocytes % 25.5 %; Mean Corpuscular HGB Conc 30.9 g/dL (30.0-36.0); Mean Corpuscular Hemoglobin 27.8 pg (28.0-34.0); Mean Corpuscular Volume 90.2 fL (81-99); Mean Platelet Volume 9.6 fL (7.4-10.4); Monocytes # 0.8 10^3/uL (0.2-0.9); Monocytes % 7.8 %; Neutrophils % 62.2 %; Nucleated Red Blood Cells % 0 %; Platelet Count 361 10^3/cmm (130-400); Red Blood Count 3.88 10^6/uL (4.1-5.3); Red Cell Distribution Width 16.4 % (12.1-15.1); White Blood Count 10.3 10^3/uL (4.0-10.0)
[2020-06-07 04:24] LABS: Alanine Aminotransferase 7 U/L (0-33); Albumin Level 3.3 g/dL (3.5-5.2); Alkaline Phosphatase 83 IU/L (35-105); Anion Gap 14.5 (5-19); Aspartate Amino Transferase 10 U/L (0-32); Blood Urea Nitrogen 10 mg/dL (8-23); Calcium 8.7 mg/dL (8.5-10.5); Carbon Dioxide 29 mmol/L (22-29); Chloride 100 mmol/L (98-107); Globulin 2.8 g/dL (1.3-4.6); Glucose 137 mg/dL (65-115); Osmolality Calculated 291 mOsm/kg (285-295); Potassium 3.5 mmol/L (3.5-5.1); Sodium 140 mmol/L (136-145); Total Bilirubin 0.2 mg/dL (0.15-1.2); Total Protein 6.1 g/dL (6.6-8.7)
[2020-06-07 08:10] LABS: Magnesium 1.9 mg/dL (1.7-2.3)
[2020-06-07] MEDS: gabapentin 300 mg Capsule PO ×3 (08:32→21:26)
[2020-06-07] MEDS: hyDRALAzine 50 mg Tablet 100 MG PO ×3 (08:32→21:26)
[2020-06-07] MEDS: lisinopril 20 mg Tablet PO ×2 (08:32→17:09)
[2020-06-07] MEDS: amlodipine 5 mg Tablet 10 MG PO (08:32)
[2020-06-07] MEDS: pantoprazole DR 40 mg Tablet PO ×2 (08:33→17:09)
[2020-06-07] MEDS: metoprolol tartrate 50 mg Tablet PO ×2 (08:33→21:26)
[2020-06-07] MEDS: potassium chloride oral liq 20 mEq/15 mL UDC 40 MEQ PO ×2 (08:33→17:09)
--- NOTE | 2020-06-07 09:14 | PC.CHAP ---
Pastoral Care Encounter/Spiritual Assessment Type of Contact [] Declined air brush artist visit [] Patient/Family/Request visit [] Outpatient visit [] Follow-up visit [] Physician referral [] Code/Alert [x] Routine visit [] Staff referral [] Actively dying [] Patient sleeping [] Family support [] [] Out of room [] Palliative care [] [] Receiving care in room [] Pre-surgical visit [] Trauma [] Long length of stay [x] ICU visit [] Other: Relational/Emotional Strength [] Patient feels connected with others/family/visitors/staff [] Distress [] Loneliness/isolation [] Abandonment Spirituality of Patient [] Person of Chelsie [] Attends Presybeterian of their Chelsie [] Believes in Prayer [] Reads Bible or Tenriism materials [] There are Spiritual issues to be addressed Certified Industrial Hygienist Interventions [x] Prayer [] Active listening [] Non-anxious presence [] Spiritual/emotional support [] Crisis/trauma care [] Spiritual counseling [] Bereavement support [] Provided bereavement packet [] Provided Bible/devotional materials [] Provided toy/stuffed animal, coloring book to patient or family member [] Provided Communion [] Anointing/[place] [] Salvation [x] Completed spiritual assessment [] Other: Impact on Illness or Injury [] Angry [] Fearful [] Anxious [] Often cries [] Exhaustion [] Unable to work [] Unable to attend restorationist [] Unable to walk/stand [] Unable to read [] Unable to drive [] Unable to eat/drink [] Unable to sleep [] Unable to be with family [] Patient intubated [] Other: Summary patient setting on side of bed having breakfast Time spent with patient
[2020-06-07] MEDS: heparin 5,000 unit/mL INJ 1 mL 5000 UNIT SUBCUT ×2 (10:48→18:17)
--- NOTE | 2020-06-07 15:59 | P.PN_ITS ---
Subjective Subjective: Interval history: Pt seen asleep in bed, arouses easily. No complaints, denies GARCIA or SOB. No CP. Good appetitie. Medications: Reviewed: Yes Vitals/I&O/Wt Last Vital Signs Temp 98.2 F 06/07/20 04:00 Pulse 68 06/07/20 15:00 Resp 16 06/07/20 15:00 BP 160/74 06/07/20 15:00 Pulse Ox 99 06/07/20 15:00 06/07/20 06/07/20 06/07/20 06:59 14:59 22:59 Intake Total 225 / 1915 400 / 400 Output Total 0 / 0 Balance 225 / 1315 400 / 400 Physical Exam Const: COMMON NORMALS: no acute distress, average body habitus and alert ORIENTATION/CONSCIOUSNESS: Yes awake, Yes oriented to person and Yes oriented to place HENMT: HEAD & SCALP: other (DISPATCHER AUTOMOBILE RENTAL shunt palpable. Nontender to palpation. No erythema noted.) Resp: COMMON NORMALS: normal respiratory effort and clear to auscultation bilaterally AUSCULTATION: clear to auscultation bilaterally Cardio: COMMON NORMALS: regular rhythm, S1 normal heart sound present and S2 normal heart sound present RHYTHM: regular rhythm HEART SOUNDS: S1 normal heart sound present and S2 normal heart sound present Extremity: COMMON NORMALS: no calf tenderness and no pedal edema Neuro: SENSORIUM/ORIENTATION: Yes alert, Yes oriented to person and Yes oriented to place Psych: ATTENTION/CONCENTRATION: Yes attention grossly intact MEMORY/COGNITION: Yes memory grossly impaired and Yes cognition grossly impaired INSIGHT: Poor insight present (Psych) Urinary Catheter Management^: Dubose: Cath Placed During This Visit: yes, but has since been removed by the nurse Reason for Continuing Indwelling Catheter: Accurate Measurement of Urinary Output in Critically Ill Patients Date Urinary Catheter Removed: 06/06/20 Time Urinary Catheter Discontinued: 10:40 Data : 06/07/20 03:27 06/07/20 03:27 Other Labs: Blood Culture Final 06/05/20-1034 2 OF 4 BOTTLES POSITIVE FROM THE SAME SET DIRECT GRAM STAIN: GRAM POSITIVE COCCI IN CLUSTERS MRSA CALLED TO SHILOH 06/03/20 09:25 AG Organism 1 Methicillin Resis Staph Aureus Growth IN 2 BOTTLES Gram Stain Charge Charge for Gram Stain CRITICAL RESULT YES/NO: YES CRITICAL CALLED BY: JOSIE TO AND READ BACK BY: MADISON DATE: 06/01/20 TIME: 1720 2ND CRITICAL RES YES/NO: YES 2ND CRITICAL CALLED BY: JOSIE 2ND TO AND READ BACK BY: DARREN DATE: 06/02/20 2ND CRITICAL TIME: 912 MRSA M.I.C. RX --------- ------ * Ampicillin >8 R * Ciprofloxacin <=1 S * Clindamycin <=0.5 R * Erythromycin >4 R * Gentamicin <=4 S * Levofloxacin <=1 S * Linezolid 4 S * Oxacillin >2 R * Penicillin >8 R * Rifampin <=1 S * Tetracycline <=4 S * Trimethoprim/Sulfamethoxazole <=0.5/9.5 S Vancomycin 2 S Daptomycin <=0.5 S A&P Assessment and plan (1) COPD (chronic obstructive pulmonary disease): Patient on 2 L nasal cannula currently at 95% FiO2. Have asked RN every day to take off, appears that night RN replaces. she must dip down a bit at night. will need RT eval prior to d/c Status: Acute (2) GERD (gastroesophageal reflux disease): Patient remains on Protonix twice daily Status: Acute (3) Staphylococcus aureus bacteremia: MRSA in 2/4 cultures. Patient on vancomycin and rifampin. WBC remain in 10K range today. Second set of blood cultures are negative. Status: Acute (4) Hypertensive urgency: increased hydralazine to 100 mg tid. pt has required one prn dose today. did not increase b karl due to Hr in 60's already. remains on norvasc 10 and lisinopril 20mg bid Status: Acute (5) Encephalopathy: delirium on top of her dementia due to acute illness. Her mental statusappears to be improving Status: Acute (6) Urinary retention: Dubose is out. incontinent. no issues. Status: Acute (7) Colitis: This was seen on CT. she has no complaints of abdominal pain or tenderness on palpation. However we will keep this in mind with the elevated white blood cell count Status: Acute (8) Pneumonia: Patient is on cefepime for pneumonia is suspected to be the source of b acteremia. Status: Acute (9) Chronic anticoagulation: for history of PE, Eliquis 5 mg bid. 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
[2020-06-07] MEDS: montelukast sodium 10 mg Tablet PO (21:26)
[2020-06-07] MEDS: atorvastatin 40 mg Tablet 20 MG PO (21:26)
[2020-06-07] MEDS: vancomycin 750 MG in sodium chloride 0.9% 250 ML 250 MG IV (21:27)
[2020-06-08] VITALS (10 sets, daily range): BP systolic 146–179; BP diastolic 66–89; PULSE 65–86; RESP 15–20; TEMP 36.7–37.7; O2SAT 90–97
[2020-06-08] MEDS: cefepime 1,000 MG in sodium chloride 0.9% (plus) 50 ML 100 MG IV (02:11)
[2020-06-08] MEDS: heparin 5,000 unit/mL INJ 1 mL 5000 UNIT SUBCUT ×3 (02:12→17:59)
[2020-06-08] MEDS: ipratropium-albuterol 3 mL Neb INHALATION (08:29)
[2020-06-08] MEDS: gabapentin 300 mg Capsule PO ×3 (09:10→21:23)
[2020-06-08] MEDS: potassium chloride oral liq 20 mEq/15 mL UDC 40 MEQ PO ×2 (09:10→17:58)
[2020-06-08] MEDS: pantoprazole DR 40 mg Tablet PO ×2 (09:10→17:59)
[2020-06-08] MEDS: amlodipine 5 mg Tablet 10 MG PO (09:10)
[2020-06-08] MEDS: metoprolol tartrate 50 mg Tablet PO ×2 (09:10→21:23)
[2020-06-08] MEDS: hyDRALAzine 50 mg Tablet 100 MG PO ×3 (09:10→21:23)
[2020-06-08] MEDS: lisinopril 20 mg Tablet PO ×2 (09:10→17:59)
[2020-06-08] MEDS: cloNIDine 0.2 mg/24 hr Patch 1 PATCH TRANSDERMA (16:08)
--- NOTE | 2020-06-08 18:40 | PM.PN ---
Subjective Subjective: Interval history: Pt seen asleep in new bed on med/surg floor. arouses easily. No complaints, denies GARCIA or SOB. No CP. Good appetitie. 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 Nontender to palpation. No erythema noted.) Resp: COMMON NORMALS: normal respiratory effort and clear to auscultation bilaterally AUSCULTATION: clear to auscultation bilaterally Cardio: COMMON NORMALS: regular rhythm, S1 normal heart sound present and S2 normal heart sound present RHYTHM: regular rhythm HEART SOUNDS: S1 normal heart sound present and S2 normal heart sound present Extremity: COMMON NORMALS: no calf tenderness and no pedal edema Neuro: SENSORIUM/ORIENTATION: Yes alert, Yes oriented to person and Yes oriented to place Psych: ATTENTION/CONCENTRATION: Yes attention grossly intact MEMORY/COGNITION: Yes memory grossly impaired and Yes cognition grossly impaired INSIGHT: Poor insight present (Psych) Urinary Catheter Management^: Dubose: Cath Placed During This Visit: yes, but has since been removed by the nurse Reason for Continuing Indwelling Catheter: Accurate Measurement of Urinary Output in Critically Ill Patients Date Urinary Catheter Removed: 06/06/20 Time Urinary Catheter Discontinued: 10:40 Data : 06/07/20 03:27 06/07/20 03:27 Micro: Microbiology 06/03/20 05:48 Blood Culture - Final Blood NO GROWTH AFTER 5 DAYS 06/03/20 05:40 Blood Culture - Final Blood NO GROWTH AFTER 5 DAYS 06/02/20 17:23 Blood Culture - Final Blood NO GROWTH AFTER 5 DAYS 06/02/20 16:40 Blood Culture - Final Blood NO GROWTH AFTER 5 DAYS A&P Assessment and plan (1) COPD (chronic obstructive pulmonary disease): Patient on 2 L nasal cannula , seems to require oxygen at night. Will go to SNF on oxygen Status: Acute (2) GERD (gastroesophageal reflux disease): Patient remains on Protonix twice daily Status: Acute (3) Staphylococcus aureus bacteremia: MRSA in 2/4 cultures. Second set of blood cultures are negative. Patient on vancomycin . Discussed iwth ID. might be contaminent however, should be on safe side and treat monotherapy for 4 weeks, has 3 weeks left. Awaiting SNf acceptance/pre-auth. Status: Acute (4) Hypertensive urgency: hydralazine to 100 mg tid. ? increase this dose or add clonidine. choose to add clonidine patch. norvasc 10 lisinopril 20mg bid metoloprolol 50 mg bid - unable to increase due to HR Status: Acute (5) Encephalopathy: delirium on top of her dementia due to acute illness. Her mental status appears to have improved to baseline. Status: Acute (6) Urinary retention: Dubose is out. incontinent. no issues. Status: Acute (7) Colitis: This was seen on CT. she has no complaints of abdominal pain or tenderness on palpation. No treatment indicated. does not correlate with MRSA bacteremia Status: Acute (8) Pneumonia: Reviewed CT chest with ID, no significant pneumonia. perhaps a bit of aspiration. no treatment required. Status: Acute (9) Chronic anticoagulation: for history of PE, Eliquis 5 mg bid. 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
[2020-06-08] MEDS: montelukast sodium 10 mg Tablet PO (21:23)
[2020-06-08] MEDS: atorvastatin 40 mg Tablet 20 MG PO (21:23)
[2020-06-08] MEDS: vancomycin 750 MG in sodium chloride 0.9% 250 ML 250 MG IV (21:25)
[2020-06-09] VITALS (10 sets, daily range): BP systolic 133–169; BP diastolic 56–74; PULSE 61–75; RESP 16–20; TEMP 36.6–37.3; O2SAT 94–97
[2020-06-09] MEDS: hyDRALAzine 50 mg Tablet 100 MG PO ×3 (06:09→21:01)
[2020-06-09] MEDS: heparin 5,000 unit/mL INJ 1 mL 5000 UNIT SUBCUT ×3 (06:09→18:02)
[2020-06-09] MEDS: lisinopril 20 mg Tablet PO ×2 (09:56→17:56)
[2020-06-09] MEDS: metoprolol tartrate 50 mg Tablet PO ×2 (09:56→21:03)
[2020-06-09] MEDS: pantoprazole DR 40 mg Tablet PO ×2 (09:56→17:57)
[2020-06-09] MEDS: gabapentin 300 mg Capsule PO ×3 (09:56→21:02)
[2020-06-09] MEDS: amlodipine 5 mg Tablet 10 MG PO (09:56)
[2020-06-09] MEDS: potassium chloride oral liq 20 mEq/15 mL UDC 40 MEQ PO ×2 (09:57→17:56)
--- NOTE | 2020-06-09 10:31 | PC.SOCIAL ---
IMM Update Pg.2 of IMM updated and copy provided to patient.
--- NOTE | 2020-06-09 12:56 | P.PN_ITS ---
Subjective Subjective: Interval history: 74-year-old female with a past medical history significant for gastroesophageal reflux disease, chronic obstructive pulmonary disease on p.r.n. O2 at home, dyslipidemia, diabetes mellitus on metformin, neuropathy, pulmonary embolism on eliquis and hypertension who presented to the hospital after she sustained a fall at home. Initial laboratory workup showed a WBC of 18.2, hemoglobin of 14.6, hematocrit 48.0 and a platelet count of 414. Sodium 137, potassium 4.4, chloride 97, bicarb 18, BUN 28 and creatinine of 2.5. Creatinine prior to this 0.5 in February 2019. Chest x-ray showed new opacification throughout the left lung greater in the left upper field with improved aeration on right lower lobe. Mild cardiomegaly. Head CT did not show any acute intracranial abnormality. She was however noted to have a stable CASE MANAGER SPECIALIST shunt. CT abdomen pelvis was then performed which showed mild atrophy of urinary bladder wall with mild thickening., mild right hydronephrosis and hydroureter of uncertain significance, mild left renal atrophy. Noted to be markedly hypotensive on admission. Etiology on shock was unclear. Patient was started on broad spectrum abx including vancomycin and zosyn. She was noted to have a fever on 06/07 of 100.0. On 06/02/19 patient did have a repeat head CT which remained stable. Cervical spinal CT did not show any acute abnormality, CT chest/abdomen/pelvis mild bilateral scant pleural effusion, min dependent atelectasis of lung bases, cardiomegaly with moderately advanced coronary artery disease. CT abdomen pelvis did not show any sig changes from the on prior to this on 05/31. CT of lumbar and thoracic spine did not show any acute fracture or evidence of epidural abscess. Echo showed EF of 65-70%, Grade 2 diastolic dysfunction. No evidence of vegetation. On 06/07 patient was noted to have positive blood culture x 2/4 sets showing MRSA. She was continued on IV abx. On 06/03 repeat blood culture drawn remained negative. Patient was continued on IV. Renal function returned to normal. Medications: Reviewed: Yes Vitals/I&O/Wt Last Vital Signs Temp 98.8 F 06/09/20 12:00 Pulse 65 06/09/20 12:00 Resp 16 06/09/20 12:00 BP 134/74 06/09/20 12:00 Pulse Ox 97 06/09/20 12:00 06/08/20 06/09/20 06/09/20 22:59 06:59 14:59 Intake Total 600 / 1200 450 / 1650 960 / 960 Balance 600 / 1200 450 / 1650 960 / 960 Physical Exam Const: COMMON NORMALS: no acute distress, average body habitus and alert; negative for patient oriented x3 GENERAL APPEARANCE: cooperative, comfortable and frail appearing ORIENTATION/CONSCIOUSNESS: Yes awake, Yes oriented to person and Yes oriented to place OTHER: Not as confused today HENMT: COMMON NORMALS: oropharynx normal HEAD & SCALP: other (CASE MANAGER SPECIALIST shunt palpable. Nontender to palpation. No erythema noted.) THROAT: no uvular edema Neck/C-Spine: COMMON NORMALS: no meningeal signs Resp: COMMON NORMALS: normal respiratory effort and clear to auscultation bilaterally AUSCULTATION: clear to auscultation bilaterally OTHER: Minimal wheeze L lung Cardio: COMMON NORMALS: regular rhythm, S1 normal heart sound present, S2 normal heart sound present and No murmurs present (Cardio) RHYTHM: regular rhythm HEART SOUNDS: S1 normal heart sound present and S2 normal heart sound present GI: COMMON NORMALS: Normal to inspection, nondistended, normoactive bowel sounds present, Soft to palpation and non-tender PALPATION: Yes Soft to palpation Extremity: COMMON NORMALS: no joint enlargement, no calf tenderness and no pedal edema Neuro: COMMON NORMALS: moves all extremities; negative for patient oriented x3 SENSORIUM/ORIENTATION: Yes alert, Yes oriented to person, Yes oriented to place and Yes Orientation impaired (Somewhat fluctuating orientation) MENINGEAL SIGNS: Yes no meningeal signs Psych: ATTENTION/CONCENTRATION: Yes attention grossly intact MEMORY/COGNITION: Yes memory grossly impaired and Yes cognition grossly impaired INSIGHT: Poor insight present (Psych) Skin: COMMON NORMALS: no rashes or lesions noted GENERAL SKIN EXAM: no rashes or lesions noted Urinary Catheter Management^: Dubose: Cath Placed During This Visit: yes, but has since been removed by the nurse Reason for Continuing Indwelling Catheter: Accurate Measurement of Urinary Output in Critically Ill Patients Date Urinary Catheter Removed: 06/06/20 Time Urinary Catheter Discontinued: 10:40 Data : 06/07/20 03:27 06/07/20 03:27 A&P Assessment and plan (1) Chronic anticoagulation: for history of PE, Eliquis 5 mg bid. Status: Acute (2) Staphylococcus aureus bacteremia: MRSA in 2/4 cultures. Second set of blood cultures are negative. Patient on vancomycin . Will plan for picc No clear source afebril e Status: Acute (3) Hypertensive urgency: Continue current regimen Status: Acute (4) Encephalopathy: At baseline Status: Acute (5) Urinary retention: Stable. no issues. Status: Acute (6) Colitis: This was seen on CT. she has no complaints of abdominal pain or tenderness on palpation. No treatment indicated. does not correlate with MRSA bacteremia Status: Acute (7) Septic shock: Status: Resolved (8) Syncope: Status: Acute (9) Hypovolemic shock: Status: Resolved Additional A&P Information Diarrhea. Gastroenteritis: Enteric pathogen panel, C. difficile negative. Parasites negative. Resolved. Sore throat: Strep throat negative rapid test. Culture negtive. Incidentally noted L4/L5 spinal stenosis. 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 History of PE: will resume OAC after picc placement Attestations Medical Necessity Statement*: Will require further hospitalition for infectious work up and final abx plan. Time Spent in Patient Care: Greater than 35 minutes (>than 50% of time spent in counselling and/or direct pt care on unit) . 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
--- NOTE | 2020-06-09 17:25 | PC.SLP ---
Patient was not seen since she was meeting with her physician
[2020-06-09] MEDS: atorvastatin 40 mg Tablet 20 MG PO (21:02)
[2020-06-09] MEDS: montelukast sodium 10 mg Tablet PO (21:02)
[2020-06-09] MEDS: vancomycin 750 MG in sodium chloride 0.9% 250 ML 250 MG IV (21:03)
[2020-06-10] VITALS (11 sets, daily range): BP systolic 107–154; BP diastolic 55–75; PULSE 62–75; RESP 16–18; TEMP 36.4–37.1; O2SAT 91–94
[2020-06-10] MEDS: hyDRALAzine 50 mg Tablet 100 MG PO ×2 (05:05→15:24)
[2020-06-10] MEDS: heparin 5,000 unit/mL INJ 1 mL 5000 UNIT SUBCUT ×2 (05:05→10:25)
[2020-06-10 06:44] LABS: Basophils % 0.5 %; Eosinophils # 0.2 10^3/uL (0.0-0.8); Eosinophils % 2.3 %; Hematocrit 33.4 % (37.0-47.0); Hemoglobin 10.3 g/dL (11.5-15.3); Lymphocytes # 2.4 10^3/uL (0.8-4.8); Lymphocytes % 31.7 %; Mean Corpuscular HGB Conc 30.8 g/dL (30.0-36.0); Mean Corpuscular Hemoglobin 28.1 pg (28.0-34.0); Mean Corpuscular Volume 91.3 fL (81-99); Mean Platelet Volume 10.1 fL (7.4-10.4); Monocytes # 0.8 10^3/uL (0.2-0.9); Monocytes % 10.4 %; Neutrophils # 4.03 10^3/uL (1.8-7.7); Neutrophils % 53.5 %; Nucleated Red Blood Cells % 0 %; Platelet Count 435 10^3/cmm (130-400); Red Blood Count 3.66 10^6/uL (4.1-5.3); Red Cell Distribution Width 16.4 % (12.1-15.1); White Blood Count 7.5 10^3/uL (4.0-10.0)
[2020-06-10 07:26] LABS: Procalcitonin 0.21 ng/mL (0-0.5)
[2020-06-10 07:37] LABS: Alanine Aminotransferase 6 U/L (0-33); Albumin Level 3.3 g/dL (3.5-5.2); Alkaline Phosphatase 64 IU/L (35-105); Anion Gap 15.1 (5-19); Aspartate Amino Transferase 8 U/L (0-32); Blood Urea Nitrogen 19 mg/dL (8-23); Calcium 8.8 mg/dL (8.5-10.5); Carbon Dioxide 24 mmol/L (22-29); Chloride 104 mmol/L (98-107); Globulin 2.5 g/dL (1.3-4.6); Glucose 125 mg/dL (65-115); Osmolality Calculated 290 mOsm/kg (285-295); Potassium 5.1 mmol/L (3.5-5.1); Sodium 138 mmol/L (136-145); Total Bilirubin 0.2 mg/dL (0.15-1.2); Total Protein 5.8 g/dL (6.6-8.7)
[2020-06-10 08:33] LABS: Slide Review Slide Review Perform
[2020-06-10] MEDS: metoprolol tartrate 50 mg Tablet PO (10:06)
[2020-06-10] MEDS: gabapentin 300 mg Capsule PO ×3 (10:06→21:16)
[2020-06-10] MEDS: amlodipine 5 mg Tablet 10 MG PO (10:06)
[2020-06-10] MEDS: lisinopril 20 mg Tablet PO (10:06)
[2020-06-10] MEDS: potassium chloride oral liq 20 mEq/15 mL UDC 40 MEQ PO (10:06)
[2020-06-10] MEDS: pantoprazole DR 40 mg Tablet PO ×2 (10:06→18:08)
--- NOTE | 2020-06-10 10:53 | P.PN_ITS ---
Subjective Subjective: Interval history: 74-year-old female with a past medical history significant for gastroesophageal reflux disease, chronic obstructive pulmonary disease on p.r.n. O2 at home, dyslipidemia, diabetes mellitus on metformin, neuropathy, pulmonary embolism on eliquis and hypertension who presented to the hospital after she sustained a fall at home. Initial laboratory workup showed a WBC of 18.2, hemoglobin of 14.6, hematocrit 48.0 and a platelet count of 414. Sodium 137, potassium 4.4, chloride 97, bicarb 18, BUN 28 and creatinine of 2.5. Creatinine prior to this 0.5 in February 2019. Chest x-ray showed new opacification throughout the left lung greater in the left upper field with improved aeration on right lower lobe. Mild cardiomegaly. Head CT did not show any acute intracranial abnormality. 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 CT abdomen pelvis was then performed which showed mild atrophy of urinary bladder wall with mild thickening., mild right hydronephrosis and hydroureter of uncertain significance, mild left renal atrophy. Noted to be markedly hypotensive on admission. Etiology on shock was unclear. Patient was started on broad spectrum abx including vancomycin and zosyn. She was noted to have a fever on 06/07 of 100.0. On 06/02/19 patient did have a repeat head CT which remained stable. Cervical spinal CT did not show any acute abnormality, CT chest/abdomen/pelvis mild bilateral scant pleural effusion, min dependent atelectasis of lung bases, cardiomegaly with moderately advanced coronary artery disease. CT abdomen pelvis did not show any sig changes from the on prior to this on 05/31. CT of lumbar and thoracic spine did not show any acute fracture or evidence of epidural abscess. Echo showed EF of 65-70%, Grade 2 diastolic dysfunction. No evidence of vegetation. On 06/07 patient was noted to have positive blood culture x 2/4 sets showing MRSA. She was continued on IV abx. On 06/03 repeat blood culture drawn remained negative. Patient was continued on IV. Renal function returned to normal. 06/10 No new clinical events overnight, afebrile. Denied dizziness, chest pain, nausea or vomiting. Medications: Reviewed: Yes Vitals/I&O/Wt Last Vital Signs Temp 98.0 F 06/10/20 07:51 Pulse 71 06/10/20 08:58 Resp 16 06/10/20 08:56 BP 134/67 06/10/20 07:51 Pulse Ox 93 06/10/20 08:56 06/09/20 06/10/20 06/10/20 22:59 06:59 14:59 Intake Total 360 / 1320 2009 240 / 240 Balance 360 / 1320 2009 240 / 240 Physical Exam Const: COMMON NORMALS: no acute distress, average body habitus and alert; negative for patient oriented x3 GENERAL APPEARANCE: cooperative, comfortable and frail appearing ORIENTATION/CONSCIOUSNESS: Yes awake, Yes oriented to person and Yes oriented to place OTHER: Not as confused today HENMT: COMMON NORMALS: oropharynx normal HEAD & SCALP: other (MOTORBOAT MECHANIC HELPER shunt palpable. Nontender to palpation. No erythema noted.) THROAT: no uvular edema Neck/C-Spine: COMMON NORMALS: no meningeal signs Resp: COMMON NORMALS: normal respiratory effort and clear to auscultation bilaterally AUSCULTATION: clear to auscultation bilaterally OTHER: Minimal wheeze L lung Cardio: COMMON NORMALS: regular rhythm, S1 normal heart sound present, S2 normal heart sound present and No murmurs present (Cardio) RHYTHM: regular rhythm HEART SOUNDS: S1 normal heart sound present and S2 normal heart sound present GI: COMMON NORMALS: Normal to inspection, nondistended, normoactive bowel sounds present, Soft to palpation and non-tender PALPATION: Yes Soft to palpation Extremity: COMMON NORMALS: no joint enlargement, no calf tenderness and no pedal edema Neuro: COMMON NORMALS: moves all extremities; negative for patient oriented x3 SENSORIUM/ORIENTATION: Yes alert, Yes oriented to person, Yes oriented to place and Yes Orientation impaired (Somewhat fluctuating orientation) MENINGEAL SIGNS: Yes no meningeal signs Psych: ATTENTION/CONCENTRATION: Yes attention grossly intact MEMORY/COGNITION: Yes memory grossly impaired and Yes cognition grossly impaired INSIGHT: Poor insight present (Psych) Skin: COMMON NORMALS: no rashes or lesions noted GENERAL SKIN EXAM: no rashes or lesions noted Urinary Catheter Management^: Dubose: Cath Placed During This Visit: yes, but has since been removed by the nurse Reason for Continuing Indwelling Catheter: Accurate Measurement of Urinary Output in Critically Ill Patients Date Urinary Catheter Removed: 06/06/20 Time Urinary Catheter Discontinued: 10:40 Data : 06/10/20 05:37 06/10/20 05:37 A&P Assessment and plan (1) Chronic anticoagulation: for history of PE, Eliquis 5 mg bid. Status: Acute (2) Staphylococcus aureus bacteremia: MRSA in 2/4 cultures. Second set of blood cultures are negative. Patient on vancomycin for total 4 weeks Will plan for picc on friday No clear source afebrile Status: Acute (3) Hypertensive urgency: Continue current regimen Status: Acute (4) Encephalopathy: At baseline Status: Acute (5) Urinary retention: Stable. no issues. Status: Acute (6) Colitis: No abdominal complaints today Status: Acute (7) Septic shock: Status: Resolved (8) Syncope: Status: Acute (9) Hypovolemic shock: Status: Resolved Additional A&P Information Diarrhea. Gastroenteritis: Enteric pathogen panel, C. difficile negative. Parasites negative. Resolved. Sore throat: Strep throat negative rapid test. Culture negtive. Incidentally noted L4/L5 spinal stenosis. 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
[2020-06-10 20:21] LABS: Vancomycin Trough 13.2 ug/mL (10-15)
[2020-06-10] MEDS: vancomycin 750 MG in sodium chloride 0.9% 250 ML 250 MG IV (21:15)
[2020-06-10] MEDS: apixaban 5 mg Tablet 2.5 MG PO (21:16)
[2020-06-10] MEDS: montelukast sodium 10 mg Tablet PO (21:16)
[2020-06-10] MEDS: atorvastatin 40 mg Tablet 20 MG PO (21:16)
[2020-06-11] VITALS (8 sets, daily range): BP systolic 117–137; BP diastolic 55–66; PULSE 63–89; RESP 16–20; TEMP 36.5–36.8; O2SAT 93–97
[2020-06-11] MEDS: hyDRALAzine 50 mg Tablet 100 MG PO ×3 (05:33→22:08)
[2020-06-11 06:11] LABS: Basophils # 0.1 10^3/uL (0.0-0.1); Basophils % 0.9 %; Eosinophils # 0.2 10^3/uL (0.0-0.8); Eosinophils % 2.5 %; Hematocrit 34.2 % (37.0-47.0); Hemoglobin 10.4 g/dL (11.5-15.3); Lymphocytes # 2.4 10^3/uL (0.8-4.8); Lymphocytes % 37.3 %; Mean Corpuscular HGB Conc 30.4 g/dL (30.0-36.0); Mean Corpuscular Hemoglobin 27.8 pg (28.0-34.0); Mean Corpuscular Volume 91.4 fL (81-99); Monocytes # 0.7 10^3/uL (0.2-0.9); Monocytes % 10.6 %; Neutrophils # 3.05 10^3/uL (1.8-7.7); Neutrophils % 47.6 %; Nucleated Red Blood Cells % 0 %; Platelet Count 464 10^3/cmm (130-400); Red Blood Count 3.74 10^6/uL (4.1-5.3); Red Cell Distribution Width 16.2 % (12.1-15.1); White Blood Count 6.4 10^3/uL (4.0-10.0)
[2020-06-11 07:06] LABS: Procalcitonin 0.17 ng/mL (0-0.5)
[2020-06-11 07:17] LABS: Alanine Aminotransferase 7 U/L (0-33); Albumin Level 3.5 g/dL (3.5-5.2); Alkaline Phosphatase 64 IU/L (35-105); Anion Gap 15.9 (5-19); Aspartate Amino Transferase 9 U/L (0-32); Blood Urea Nitrogen 18 mg/dL (8-23); Calcium 9.4 mg/dL (8.5-10.5); Carbon Dioxide 25 mmol/L (22-29); Chloride 101 mmol/L (98-107); Globulin 2.7 g/dL (1.3-4.6); Glucose 115 mg/dL (65-115); Osmolality Calculated 287 mOsm/kg (285-295); Potassium 4.9 mmol/L (3.5-5.1); Sodium 137 mmol/L (136-145); Total Bilirubin 0.2 mg/dL (0.15-1.2); Total Protein 6.2 g/dL (6.6-8.7)
[2020-06-11 08:16] LABS: Slide Review Slide Review Perform
[2020-06-11] MEDS: amlodipine 5 mg Tablet 10 MG PO (08:51)
[2020-06-11] MEDS: pantoprazole DR 40 mg Tablet PO ×2 (08:51→18:06)
[2020-06-11] MEDS: gabapentin 300 mg Capsule PO ×3 (08:52→22:05)
[2020-06-11] MEDS: metoprolol tartrate 50 mg Tablet PO ×2 (08:52→22:06)
[2020-06-11] MEDS: apixaban 5 mg Tablet 2.5 MG PO ×2 (08:54→22:05)
--- NOTE | 2020-06-11 10:32 | PM.PN ---
Subjective Subjective: Interval history: 74-year-old female with a past medical history significant for gastroesophageal reflux disease, chronic obstructive pulmonary disease on p.r.n. O2 at home, dyslipidemia, diabetes mellitus on metformin, neuropathy, pulmonary embolism on eliquis and hypertension who presented to the hospital after she sustained a fall at home. Initial laboratory workup showed a WBC of 18.2, hemoglobin of 14.6, hematocrit 48.0 and a platelet count of 414. Sodium 137, potassium 4.4, chloride 97, bicarb 18, BUN 28 and creatinine of 2.5. Creatinine prior to this 0.5 in February 2019. Chest x-ray showed new opacification throughout the left lung greater in the left upper field with improved aeration on right lower lobe. Mild cardiomegaly. Head CT did not show any acute intracranial abnormality. She was however noted to have a stable ANATOMIC PATHOLOGIST shunt. CT abdomen pelvis was then performed which showed mild atrophy of urinary bladder wall with mild thickening., mild right hydronephrosis and hydroureter of uncertain significance, mild left renal atrophy. Noted to be markedly hypotensive on admission. Etiology on shock was unclear. Patient was started on broad spectrum abx including vancomycin and zosyn. She was noted to have a fever on 06/07 of 100.0. On 06/02/19 patient did have a repeat head CT which remained stable. Cervical spinal CT did not show any acute abnormality, CT chest/abdomen/pelvis mild bilateral scant pleural effusion, min dependent atelectasis of lung bases, cardiomegaly with moderately advanced coronary artery disease. CT abdomen pelvis did not show any sig changes from the on prior to this on 05/31. CT of lumbar and thoracic spine did not show any acute fracture or evidence of epidural abscess. Echo showed EF of 65-70%, Grade 2 diastolic dysfunction. No evidence of vegetation. On 06/07 patient was noted to have positive blood culture x 2/4 sets showing MRSA. She was continued on IV abx. On 06/03 repeat blood culture drawn remained negative. Patient was continued on IV. Renal function returned to normal. 06/10 No new clinical events overnight, afebrile. Denied dizziness, chest pain, nausea or vomiting. 06/11 no new clinical events overnight, patient was feeling well, no complaints of lightheadedness, dizziness, fever, chills, nausea or vomiting. Medications: Reviewed: Yes Vitals/I&O/Wt Last Vital Signs Temp 97.7 F 06/11/20 07:49 Pulse 88 06/11/20 08:06 Resp 17 06/11/20 08:00 BP 135/66 06/11/20 07:49 Pulse Ox 96 06/11/20 08:00 06/10/20 06/11/20 06/11/20 22:59 06:59 14:59 Intake Total 600 / 1080 370 / 1450 240 / 240 Balance 600 / 1080 370 / 1450 240 / 240 Physical Exam Const: COMMON NORMALS: no acute distress, average body habitus and alert; negative for patient oriented x3 GENERAL APPEARANCE: cooperative, comfortable and frail appearing ORIENTATION/CONSCIOUSNESS: Yes awake, Yes oriented to person and Yes oriented to place OTHER: Not as confused today HENMT: COMMON NORMALS: oropharynx normal HEAD & SCALP: other (ANATOMIC PATHOLOGIST shunt palpable. Nontender to palpation. No erythema noted.) THROAT: no uvular edema Neck/C-Spine: COMMON NORMALS: no meningeal signs Resp: COMMON NORMALS: normal respiratory effort and clear to auscultation bilaterally AUSCULTATION: clear to auscultation bilaterally OTHER: Minimal wheeze L lung Cardio: COMMON NORMALS: regular rhythm, S1 normal heart sound present, S2 normal heart sound present and No murmurs present (Cardio) RHYTHM: regular rhythm HEART SOUNDS: S1 normal heart sound present and S2 normal heart sound present GI: COMMON NORMALS: Normal to inspection, nondistended, normoactive bowel sounds present, Soft to palpation and non-tender PALPATION: Yes Soft to palpation Extremity: COMMON NORMALS: no joint enlargement, no calf tenderness and no pedal edema Neuro: COMMON NORMALS: moves all extremities; negative for patient oriented x3 SENSORIUM/ORIENTATION: Yes alert, Yes oriented to person, Yes oriented to place and Yes Orientation impaired (Somewhat fluctuating orientation) MENINGEAL SIGNS: Yes no meningeal signs Psych: ATTENTION/CONCENTRATION: Yes attention grossly intact MEMORY/COGNITION: Yes memory grossly impaired and Yes cognition grossly impaired INSIGHT: Poor insight present (Psych) Skin: COMMON NORMALS: no rashes or lesions noted GENERAL SKIN EXAM: no rashes or lesions noted Urinary Catheter Management^: Dubose: Cath Placed During This Visit: yes, but has since been removed by the nurse Reason for Continuing Indwelling Catheter: Accurate Measurement of Urinary Output in Critically Ill Patients Date Urinary Catheter Removed: 06/06/20 Time Urinary Catheter Discontinued: 10:40 Data : 06/11/20 05:12 06/11/20 05:12 A&P Assessment and plan (1) Chronic anticoagulation: Eliquis 2.5 mg PO BID resumed Status: Acute (2) Staphylococcus aureus bacteremia: MRSA in 2/4 cultures. Second set of blood cultures are negative. Patient on vancomycin for total 4 weeks PICC line ordered No clear source afebrile Leukocytosis resolved. Procalcitonin 0.17 Status: Acute (3) Hypertensive urgency: Continue current regimen Blood pressure - stable Status: Acute (4) Encephalopathy: At baseline Improved. Possible infectious Status: Acute (5) Urinary retention: Stable. no issues. Status: Acute (6) Colitis: No abdominal complaints today Status: Acute (7) Septic shock: Resolved. Status: Resolved (8) Syncope: Status: Acute (9) Hypovolemic shock: Status: Resolved Additional A&P Information Diarrhea. Gastroenteritis - Resolved - C-diff - negative Sore throat: - Strep throat negative rapid test. - Culture negative. Incidentally noted L4/L5 spinal stenosis. 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 - PT/OT on board - Pain controled History of PE: - ELiquis resumed however at lower dose given age and risk. - 2.5 mg PO BID ordered. Attestations Medical Necessity Statement*: Continue hospitalization for management of placement arrangements, and IV antibiotics Time Spent in Patient Care: Greater than 35 minutes (>than 50% of time spent in counselling and/or direct pt care on unit). Coding Level of Care Code Acute Crimp Setter for [facility] Fwd Exam Comprehensive Diagnoses Chronic anticoagulation Z79.01 Staphylococcus aureus bacteremia R78.81; B95.61 Hypertensive urgency I16.0 Encephalopathy G93.40 Urinary retention R33.9 Colitis K52.9 Septic shock A41.9; R65.21 Syncope R55 Hypovolemic shock R57.1
--- NOTE | 2020-06-11 16:33 | PC.SOCIAL ---
Im follow up provided and explained no questions voiced.
[2020-06-11 20:29] LABS: Glucose Point of Care 165 mg/dL (70-110)
[2020-06-11] MEDS: atorvastatin 40 mg Tablet 20 MG PO (22:06)
[2020-06-11] MEDS: montelukast sodium 10 mg Tablet PO (22:07)
[2020-06-11] MEDS: vancomycin 750 MG in sodium chloride 0.9% 250 ML 250 MG IV (22:22)
[2020-06-12] VITALS (10 sets, daily range): BP systolic 110–139; BP diastolic 42–74; PULSE 54–68; RESP 15–18; TEMP 36.4–36.8; O2SAT 97–98
[2020-06-12] MEDS: hyDRALAzine 50 mg Tablet 100 MG PO ×3 (05:48→21:51)
[2020-06-12 06:56] LABS: Glucose Point of Care 133 mg/dL (70-110)
[2020-06-12 07:43] LABS: Basophils # 0.1 10^3/uL (0.0-0.1); Basophils % 0.8 %; Eosinophils # 0.2 10^3/uL (0.0-0.8); Hematocrit 33.8 % (37.0-47.0); Hemoglobin 10.2 g/dL (11.5-15.3); Lymphocytes # 2.4 10^3/uL (0.8-4.8); Mean Corpuscular HGB Conc 30.2 g/dL (30.0-36.0); Mean Corpuscular Hemoglobin 27.6 pg (28.0-34.0); Mean Corpuscular Volume 91.6 fL (81-99); Mean Platelet Volume 10.2 fL (7.4-10.4); Monocytes # 0.7 10^3/uL (0.2-0.9); Neutrophils # 4.01 10^3/uL (1.8-7.7); Neutrophils % 54.4 %; Nucleated Red Blood Cells % 0 %; Platelet Count 488 10^3/cmm (130-400); Red Blood Count 3.69 10^6/uL (4.1-5.3); Red Cell Distribution Width 15.9 % (12.1-15.1); White Blood Count 7.4 10^3/uL (4.0-10.0)
[2020-06-12 08:14] LABS: Alanine Aminotransferase 8 U/L (0-33); Albumin Level 3.7 g/dL (3.5-5.2); Alkaline Phosphatase 65 IU/L (35-105); Anion Gap 14.5 (5-19); Aspartate Amino Transferase 8 U/L (0-32); Blood Urea Nitrogen 22 mg/dL (8-23); Calcium 8.7 mg/dL (8.5-10.5); Carbon Dioxide 25 mmol/L (22-29); Chloride 100 mmol/L (98-107); Globulin 2.6 g/dL (1.3-4.6); Glucose 123 mg/dL (65-115); Osmolality Calculated 285 mOsm/kg (285-295); Potassium 4.5 mmol/L (3.5-5.1); Sodium 135 mmol/L (136-145); Total Bilirubin 0.2 mg/dL (0.15-1.2); Total Protein 6.3 g/dL (6.6-8.7)
[2020-06-12] MEDS: amlodipine 5 mg Tablet 10 MG PO (08:38)
[2020-06-12] MEDS: apixaban 5 mg Tablet 2.5 MG PO ×2 (08:39→21:50)
[2020-06-12] MEDS: metoprolol tartrate 50 mg Tablet PO (08:40)
[2020-06-12] MEDS: pantoprazole DR 40 mg Tablet PO ×2 (08:40→17:56)
[2020-06-12] MEDS: gabapentin 300 mg Capsule PO ×3 (08:40→21:50)
[2020-06-12 19:03] LABS: SARS Covid-2 Antigen Negative (Negative)
[2020-06-12] MEDS: metoprolol tartrate 25 mg Tablet PO (21:50)
[2020-06-12] MEDS: atorvastatin 40 mg Tablet 20 MG PO (21:51)
[2020-06-12] MEDS: montelukast sodium 10 mg Tablet PO (21:51)
--- NOTE | 2020-06-12 21:51 | P.PN_ITS ---
Subjective Subjective: Interval history: She states is overall doing all right. Still having mild headache on and off. Denies photosensitivity. Denies trouble breathing. No chest pain or pressure. Vitals/I&O/Wt Last Vital Signs Temp 98.2 F 06/12/20 19:25 Pulse 66 06/12/20 20:04 Resp 15 06/12/20 20:04 BP 135/62 06/12/20 19:25 Pulse Ox 97 06/12/20 20:04 06/12/20 06/12/20 06/12/20 06:59 14:59 22:59 Intake Total 250 / 970 360 / 360 240 / 600 Balance 250 / 970 360 / 360 240 / 600 Physical Exam 2 Const: COMMON NORMALS: no acute distress, patient oriented x3 and alert GENERAL APPEARANCE: cooperative, comfortable and frail appearing ORIENTATION/CONSCIOUSNESS: Yes awake; not confused OTHER: Minimally hard of hearing. HENMT: COMMON NORMALS: oropharynx normal Neck/C-Spine: COMMON NORMALS: no meningeal signs and no JVD Resp: COMMON NORMALS: normal respiratory effort and clear to auscultation bilaterally AUSCULTATION: clear to auscultation bilaterally Cardio: COMMON NORMALS: no JVD, regular rhythm, S1 normal heart sound present, S2 normal heart sound present and No murmurs present (Cardio) RHYTHM: regular rhythm HEART SOUNDS: S1 normal heart sound present and S2 normal heart sound present GI: COMMON NORMALS: Normal to inspection, nondistended, normoactive bowel sounds present, Soft to palpation and non-tender PALPATION: Yes Soft to palpation Extremity: COMMON NORMALS: no joint enlargement and no pedal edema Neuro: COMMON NORMALS: patient oriented x3 and moves all extremities SENSORIUM/ORIENTATION: Yes alert and Yes Orientation impaired (Somewhat fluctuating orientation) MENINGEAL SIGNS: Yes no meningeal signs Skin: COMMON NORMALS: no rashes or lesions noted GENERAL SKIN EXAM: no rashes or lesions noted Urinary Catheter Management^: Dubose: Cath Placed During This Visit: yes, but has since been removed by the nurse Reason for Continuing Indwelling Catheter: Accurate Measurement of Urinary Output in Critically Ill Patients Date Urinary Catheter Removed: 06/06/20 Time Urinary Catheter Discontinued: 10:40 Data : 06/12/20 06:35 06/12/20 06:35 A&P Assessment and plan (1) Staphylococcus aureus bacteremia: Pending PICC line placement to allow for postdischarge IV antibiotics. Pending placement to SNF for antibiotic therapy and rehabilitation. MRSA in 2/4 cultures. Second set of blood cultures are negative. Patient on vancomycin for total 4 weeks No clear source. Does have a COMMUNITY ACTION WORKER shunt in place, discussed with her and her son. We will have her follow-up with infectious disease and neurology after discharge. Both are in agreement. Afebrile. Leukocytosis resolved. Procalcitonin 0.17 Status: Acute (2) Chronic anticoagulation: Eliquis resumed Status: Acute (3) Hypertensive urgency: Blood pressure significantly improved. This morning mild bradycardia, heart rates in the high 50s, lower than previously. Blood pressure is also softer and low 100s. Will decrease clonidine patch to 0.1. Metoprolol decreased to 25 mg twice daily. Status: Acute (4) Encephalopathy: At baseline Improved. Possible infectious Status: Acute (5) Urinary retention: Stable. no issues. Status: Acute (6) Colitis: No abdominal complaints today Status: Acute (7) Septic shock: Resolved. Status: Resolved (8) Syncope: Status: Acute (9) Hypovolemic shock: Status: Resolved Additional A&P Information Diarrhea. Gastroenteritis - Resolved - C-diff - negative Sore throat: - Strep throat negative rapid test. - Culture negative. Incidentally noted L4/L5 spinal stenosis. 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 - PT/OT on board - Pain controled History of PE: - ELiquis resumed per her age, weight and renal function continue 5 mg Attestations Medical Necessity Statement*: Continue admission for cyst management of staph aureus bacteremia, placement of PICC line, arrangements for IV outpatient antibiotic therapy, disposition arrangements for placement to SNF. Coding Level of Care Code Acute Craps Manager for [facility] Fwd Diagnoses Staphylococcus aureus bacteremia R78.81; B95.61 Chronic anticoagulation Z79.01 Hypertensive urgency I16.0 Encephalopathy G93.40 Urinary retention R33.9 Colitis K52.9 Septic shock A41.9; R65.21 Syncope R55 Hypovolemic shock R57.1
[2020-06-12] MEDS: vancomycin 750 MG in sodium chloride 0.9% 250 ML 250 MG IV (21:53)
[2020-06-12] MEDS: cloNIDine 0.1 mg/24 hr Patch 1 PATCH TRANSDERMA (22:53)
[2020-06-13] VITALS (8 sets, daily range): BP systolic 122–136; BP diastolic 40–62; PULSE 62–69; RESP 16–18; TEMP 36.4–36.8; O2SAT 92–98
[2020-06-13 06:18] LABS: Basophils # 0.1 10^3/uL (0.0-0.1); Basophils % 0.8 %; Eosinophils # 0.1 10^3/uL (0.0-0.8); Eosinophils % 1.5 %; Hemoglobin 9.7 g/dL (11.5-15.3); Lymphocytes # 2.4 10^3/uL (0.8-4.8); Lymphocytes % 29.9 %; Mean Corpuscular HGB Conc 30.3 g/dL (30.0-36.0); Mean Corpuscular Hemoglobin 28.2 pg (28.0-34.0); Mean Platelet Volume 10.1 fL (7.4-10.4); Monocytes # 0.6 10^3/uL (0.2-0.9); Neutrophils # 4.72 10^3/uL (1.8-7.7); Neutrophils % 59.3 %; Nucleated Red Blood Cells % 0 %; Platelet Count 473 10^3/cmm (130-400); Red Blood Count 3.44 10^6/uL (4.1-5.3); Red Cell Distribution Width 15.7 % (12.1-15.1)
[2020-06-13] MEDS: hyDRALAzine 50 mg Tablet 100 MG PO (06:37)
[2020-06-13 06:49] LABS: Anion Gap 14.3 (5-19); Blood Urea Nitrogen 21 mg/dL (8-23); Calcium 8.6 mg/dL (8.5-10.5); Carbon Dioxide 26 mmol/L (22-29); Chloride 103 mmol/L (98-107); Glucose 125 mg/dL (65-115); Osmolality Calculated 292 mOsm/kg (285-295); Potassium 4.3 mmol/L (3.5-5.1); Sodium 139 mmol/L (136-145)
[2020-06-13] MEDS: amlodipine 5 mg Tablet 10 MG PO (08:23)
[2020-06-13] MEDS: gabapentin 300 mg Capsule PO ×2 (08:23→13:31)
[2020-06-13] MEDS: apixaban 5 mg Tablet 2.5 MG PO (08:23)
[2020-06-13] MEDS: pantoprazole DR 40 mg Tablet PO (08:24)
[2020-06-13] MEDS: metoprolol tartrate 25 mg Tablet PO (08:24)
--- NOTE | 2020-06-13 09:56 | PC.NURSE ---
PICC LINE GEORGE BROWN AT SIDE TO PLACE PICC LINE
--- NOTE | 2020-06-13 10:54 | P.DS_ITS ---
Discharge Providers Date of Admission: 05/31/20 23:53 Date of Discharge: June 13, 2020 Attending Provider at Admission: Janee Garcia MD Attending Provider at Discharge: Jai Campos Primary Care Provider: Grant Quevedo MD Diagnoses at Discharge Discharge Diagnosis (1) Staphylococcus aureus bacteremia: Status: Acute (2) Chronic anticoagulation: Status: Acute (3) Hypertensive urgency: Status: Acute (4) Encephalopathy: Status: Acute (5) Urinary retention: Status: Acute (6) Colitis: Status: Acute (7) Septic shock: Status: Resolved (8) Syncope: Status: Acute (9) Hypovolemic shock: Status: Resolved Reason for Visit Reason for Visit: syncope and low bp Hospital Course Hospital Course Pleasant 74-year-old lady with history of chronic kidney disease stage III, COPD, history of PE, on chronic anticoagulation with Eliquis, GERD, 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 On presentation noted new developing opacification through the left lung with pneumonia suspected source of sepsis. Head CT on presentation with c hanges of microvascular disease, PRINTING MACHINE OPERATOR shunt in place with stable ventricle size. No acute findings. CT abdomen pelvis on presentation with noted mild atrophy, mild thickening of urinary bladder wall. Mild right hydronephrosis and right hydroureter of uncertain etiology. Mild left renal atrophy. Question of mild ileus. On presentation with quite significant lactic acidosis, and consideration was given to Metformin induced lactic acidosis. COVID-19 was assessed and was negative. Stool studies were unremarkable. With history of recent sore throat on admission she was also assessed by BL[facility]ENSHIP culture which was negative. Blood cultures were obtained, subsequently with noted growth of MRSA in 2/4 bottles. She was continued on treatment for pneumonia with cefepime, initially linezolid, subsequently changed to vancomycin due to progressive confusion, recurrent hypertensive urgency episodes, with concern for possible early development of serotonin syndrome, although symptoms persisted, and did not appear to be related to the antibiotic. She remained afebrile apart for 100 Fahrenheit on 06/07. Initial hypotension as mentioned rapidly resolved, and gave way to persistent difficulty treat hypertension. With staphylococcal bacteremia was additionally assessed with contrast CT chest abdomen pelvis, with noted improvement in pneumonia, incidentally noted mild mucosal thickening of the descending colon possibly with low-grade colitis, mild right pelviectasis and ureterectasis, secondary to mild ureterovesical reflux, are also markedly distended tended urinary bladder which was decompressed with Dubose catheter, subsequently without further issues of urinary retention noted during the remainder of hospitalization. Acute kidney injury improved. Repeat hypertensive episodes required multiple doses of IV antihypertensive medications, and transiently even labetalol drip in the intensive care unit. Blood pressures eventually improved gradually, and so far been doing well with a regimen of amlodipine 10 mg, lisinopril 20 mg twice daily, hydralazine p.o. 100 mg 3 times daily, metoprolol 25 mg twice daily, as well as clonidine patch, which was decreased from 0.2 mg q. 7 days, 2.1 due to blood pressures being little bit below target, as well as mild bradycardia noted heart rates down to mid 50s, with improvement. Additional evaluation with regards to bacteremia included CT cervical thoracic and lumbar spine done together with contrast CT chest abdomen pelvis to allow for contrast evaluation, without finding of additional focus of infection. TTE was obtained with noted normal ejection fraction, grade 2 diastolic dysfunction. Mild pulmonary hypertension. Mild MVR. Respiratory condition remained stable. Oxygen requirement up and down to 1-2 L by nasal cannula. With recurrent episodes of headaches, although these were associated with hypertensive episodes as well, but with PRINTING MACHINE OPERATOR shunt in place, concern of bacteremia last week the patient was also discussed with infectious disease, with consideration of possible contamination, however, given underlying risks recommendation was to complete monotherapy treatment for 4 weeks total antibiotic treatment. She has been on vancomycin so far, with negative repeat blood cultures from 06/02, 06/03. Her mental status had progressively improved. She is alert and oriented x3. She has had improvement in headache, with unremarkable repeat head CT, with PRINTING MACHINE OPERATOR shunt stable, and appears to be functioning well, without hydrocephalus. Unfortunately with several attempts PICC line on either side could not be placed. Discussed additional options with both patient and her son. Consideration given to discharge home, with daily IV infusion at infusion center, however, son states she could not drive herself, and he is not able to consistently get her there, as an alternative we also discussed transitioning to oral therapy completing the remaining 3 weeks with an oral antibiotic, possibly tetracycline versus quinolone, and discussed risk of possibility of suboptimal treatment, although with high bioavailability, no active bacteremia, with peers noncomplicated bacteremia following pneumonia with controlled source (or possibel contamination), oral therapy should be safe. We discussed the smaller possibility/risk of return of infection and potential complications. We are referring her for additional follow-up with infectious disease after discharge. Due to general deconditioning with sepsis on presentation, ICU admission, prolonged hospitalization she is going to be undergoing additional rehabilitation at SNF after discharge. We are also asking that she follow-up with urology in office due to noted incidental right renal pelviectasis, ureterectasis, with possible vesicoureteral reflux. She is asked to schedule a follow up visit with her neurosurgeon to reassess PRINTING MACHINE OPERATOR shunt. Physical Exam Const: COMMON NORMALS: no acute distress, patient oriented x3 and alert GENERAL APPEARANCE: cooperative, comfortable and frail appearing ORIENTATION/CONSCIOUSNESS: Yes awake; not confused OTHER: Minimally hard of hearing. HENMT: COMMON NORMALS: oropharynx normal Neck/C-Spine: COMMON NORMALS: no meningeal signs and no JVD Resp: COMMON NORMALS: normal respiratory effort and clear to auscultation bilaterally AUSCULTATION: clear to auscultation bilaterally OTHER: Minimal wheeze L lung Cardio: COMMON NORMALS: no JVD, regular rhythm, S1 normal heart sound present, S2 normal heart sound present and No murmurs present (Cardio) RHYTHM: regular rhythm HEART SOUNDS: S1 normal heart sound present and S2 normal heart sound present GI: COMMON NORMALS: Normal to inspection, nondistended, normoactive bowel sounds present, Soft to palpation and non-tender PALPATION: Yes Soft to palpation Extremity: COMMON NORMALS: no joint enlargement and no pedal edema Neuro: COMMON NORMALS: patient oriented x3 and moves all extremities SENSORIUM/ORIENTATION: Yes alert and Yes Orientation impaired (Somewhat fluctuating orientation) MENINGEAL SIGNS: Yes no meningeal signs Skin: COMMON NORMALS: no rashes or lesions noted GENERAL SKIN EXAM: no rashes or lesions noted Urinary Catheter Management^: Dubose: Cath Placed During This Visit: yes, but has since been removed by the nurse Reason for Continuing Indwelling Catheter: Accurate Measurement of Urinary Output in Critically Ill Patients Date Urinary Catheter Removed: 06/06/20 Time Urinary Catheter Discontinued: 10:40 Discharge Data Data Completed and Pending: Completed Studies During Hospitalization Category Date Time Status CT abdomen pelvis wo con [id number] Urge nt Cat Scan 05/31/20 21:[address] cervical spin wo con* [id number] Rout ine Cat Scan 06/03/20 15:[address] chest abd pel w con* Routine Cat Scan 06/03/20 15:[address] head wo con* 7 0450 Routine Cat Scan 06/02/20 11:[address] head wo con* 7 0450 Urgent Cat Scan 05/31/20 21:[address] lumbar spine w o con* [id number] Routi ne Cat Scan 06/03/20 15:[address] thoracic spin wo con* [id number] Rout ine Cat Scan 06/03/20 15:25 Completed XR chest 1V karen ble [id number] Urgent Exams 05/31/20 21:01 Completed CV echo complete* [id number] Routine Ultrasound 06/04/20 13:36 Completed Pending at discharge Category Date Time Status Basic Metabolic P shira AM LABS Lab 06/14/20 04:00 Ordered Basic Metabolic P shira AM LABS Lab 06/15/20 04:00 Ordered Complete Blood Co unt w/Auto AM LABS Lab 06/14/20 04:00 Ordered Complete Blood Co unt w/Auto AM LABS Lab 06/15/20 04:00 Ordered Vancomycin Trough Timed Lab 06/13/20 20:00 Ordered Labs from last 24 hours 06/13/20 06/13/20 06/12/20 05:24 05:24 18:33 WBC 8.0 RBC 3.44 L Hgb 9.7 L Hct 32.0 L MCV 93.0 MCH 28.2 MCHC 30.3 RDW 15.7 H Plt Count 473 H MPV 10.1 Neut % (Auto) 59.3 Lymph % (Auto) 29.9 Hopkins % (Auto) 8.0 Eos % (Auto) 1.5 Baso % (Auto) 0.8 Neut # (Auto) 4.72 Lymph # (Auto) 2.4 Hopkins # (Auto) 0.6 Eos # (Auto) 0.1 Baso # (Auto) 0.1 Nucleated RBC % (a uto) 0 Nucleated RBCs # 0.0 Sodium 139 Potassium 4.3 Chloride 103 Carbon Dioxide 26 Anion Gap 14.3 BUN 21 Creatinine 0.9 GFR Calculation Not Reportable Glucose 125 H Calculated Osmolal ity 292 Calcium 8.6 SARS-CoV-2 Ag (Rap id) Negative Vitals: Last Vital Signs Temp 97.8 F 06/13/20 07:16 Pulse 65 06/13/20 07:26 Resp 18 06/13/20 07:25 BP 122/56 06/13/20 07:16 Pulse Ox 96 06/13/20 07:25 Discharge Plan Discharge Patient Disposition: Xfer SNF Condition: Stable Prescriptions: New clonidine 0.1 mg/24 hr patch weekly 1 patch transdermal .weekly Qty: 4 RF: 0 amlodipine 5 mg Tablet 10 mg PO DAILY Qty: 30 RF: 0 atorvastatin 40 mg Tablet 20 mg PO BEDTIME Qty: 30 RF: 0 hydralazine 100 mg tablet 100 mg PO TID@0600,1400,2200 Qty: 90 RF: 0 metoprolol tartrate 25 mg Tablet 25 mg PO BID@0900,2100 Qty: 60 RF: 0 doxycycline hyclate 100 mg tablet 100 mg PO BID 21 Days Qty: 42 RF: 0 Continued budesonide-formoterol [Symbicort] 160-4.5 mcg/actuation HFA aerosol inhaler 2 puff INHALATION BID Qty: 10.2 RF: 7 Linzess 290 mcg capsule 290 mcg PO DAILY Qty: 30 RF: 3 omeprazole 20 mg capsule,delayed release(DR/EC) 20 mg PO BID Qty: 60 RF: 5 montelukast 10 mg tablet 10 mg PO .daily at hs Qty: 30 RF: 5 lisinopril 20 mg tablet 20 mg PO DAILY Qty: 30 RF: 3 tiotropium bromide [Spiriva with HandiHaler] 18 mcg capsule, w/inhalation device 1 cap inhalation DAILY Qty: 30 RF: 3 fluticasone propionate 50 mcg/actuation spray,suspension See Rx Instructions .ROUTE .COMPLEX Qty: 16 RF: 3 gabapentin 300 mg capsule 300 mg PO TID Qty: 90 RF: 3 (DME) blood-glucose meter Kit See Rx Instructions .ROUTE .MEDSUPPLY Qty: 1 RF: 0 escitalopram oxalate 20 mg tablet 20 mg PO DAILY Qty: 30 RF: 3 Eliquis 5 mg tablet 5 mg PO BID MDD 2 Qty: 60 RF: 3 Discontinued potassium chloride 20 mEq tablet extended release 20 meq PO DAILY Qty: 30 RF: 3 hydroxyzine HCl 25 mg tablet 25 mg PO TID PRN (Reason: itching) Qty: 90 RF: 3 clonazepam 1 mg tablet 1 mg PO .EVERY 6 HOURS, PRN 30 Days Qty: 60 RF: 1 metoprolol succinate 100 mg tablet extended release 24 hr 100 mg PO DAILY Qty: 30 RF: 3 metoprolol succinate 100 mg tablet extended release 24 hr 100 mg PO DAILY Qty: 30 RF: 3 amitriptyline 75 mg tablet 75 mg PO DAILY Qty: 30 RF: 3 dicyclomine 10 mg capsule 10 mg PO TID Qty: 90 RF: 5 amlodipine 5 mg tablet 5 mg PO DAILY Qty: 30 RF: 3 meloxicam 15 mg tablet 15 mg PO DAILY 30 Days Qty: 30 RF: 3 metformin 1,000 mg tablet 1,000 mg PO BID MDD 2 30 Days Qty: 60 RF: 3 simvastatin 20 mg tablet 20 mg PO DAILY 30 Days Qty: 30 RF: 3 Discharge Orders: Discharge Order (Routine); Ordered 06/13/20 Ordered By: Jai Campos Referrals: [facility] [Outside] Grant Quevedo MD [Primary Care Provider] - 1 week Miguel Jeronimo MD [Physician] - 2 weeks (R pelviectasis, ureterectasis, VU reflux) Celsa Stein MD [Hospitalist] - 1 week (MRSA bacteremia, PRINTING MACHINE OPERATOR shunt, vancomycin IV) Discharge Diet: As Directed Discharge Activity: Increase activity as tolerated and As per PT/OT instructions Activity Restrictions/Additional Instructions: Please continue Vancomycin IV until 06/30. Adjust dosing depending on levels, target 15-20. Last two levels 9.3 on 06/06 (Dose incraesed from 500mg to 750mg) and 13.2 on 06/10. Referred for follow up with ID in clinic for adjustment, but please follow up level next week for dose adjustment in case difficulties with appointment. Continue O2 2LPM as needed, wean down as tolerating. Continue GI soft diet, ground meat, consistent carbohydrate, low potassium. Reassess potassium at next appointment. Continue to monitor blood pressures at least twice daily, continue to optimize control. Monitor heart rates as well. Transient urinary retention noted early in the hospital stay, monitor for any signs or symptoms of recurrence. Please follow up with your neurosurgeon with regards to reassessment of the PRINTING MACHINE OPERATOR shunt. Discharge Attestations Time Spent in Discharge Care*: greater than 30 min Quality Metrics Clinical Quality Measures During this hospital stay, did patient experience: None Coding Level of Care Code Acute Package Delivery Room Service Runner for Chg Fwd Diagnoses Staphylococcus aureus bacteremia R78.81; B95.61 Chronic anticoagulation Z79.01 Hypertensive urgency I16.0 Encephalopathy G93.40 Urinary retention R33.9 Colitis K52.9 Septic shock A41.9; R65.21 Syncope R55 Hypovolemic shock R57.1
--- NOTE | 2020-06-13 11:10 | PC.NURSE ---
PICC LINE ATTEMTED PICC LINE PER GEORGE BROWN - UNSUCCESSFUL - DR ZULETA NOTIFIED PER THIS NURSE
--- NOTE | 2020-06-13 13:58 | DCPLANNER ---
Pg 2 of IM updated and reviewed with both pt and her son who is at bedside. No questions.
--- NOTE | 2020-06-13 16:57 | PC.NURSE ---
DISCHARGE INSTRUCTIONS DISCHARGE INSTRUCTIONS GIVEN PER THIS NURSE WELL HARD SCRIPTS - PT VERBALIZES UNDERSTANDING
== END 2020-06-13 17:42 | disposition home health service (06) | DRG 871 ==
LOC: ER 23:54 → ICU 06-01 → MEDSURG 06-01 17:27 → ICU 06-03 16:42 → MEDSURG 06-07 18:39
PROVIDERS: Hospitalist; Internal Medicine; Admitting Provider Internal Medicine; Emergency Provider Emergency Medicine; PCP Internal Medicine; Visit Provider Internal Medicine
DX: A41.9 Sepsis, unspecified organism (principal); R65.21 Severe sepsis with septic shock; R57.1 Hypovolemic shock; J18.9 Pneumonia, unspecified organism; G93.41 Metabolic encephalopathy; N17.9 Acute kidney failure, unspecified; N13.30 Unspecified hydronephrosis; J44.0 Chronic obstructive pulmonary disease with (acute) lower respiratory infection; G91.9 Hydrocephalus, unspecified; E87.2 Acidosis; K56.7 Ileus, unspecified; W19.XXXA Unspecified fall, initial encounter; I95.9 Hypotension, unspecified; E86.0 Dehydration; K44.9 Diaphragmatic hernia without obstruction or gangrene; N18.30 Chronic kidney disease, stage 3 unspecified; I12.9 Hypertensive chronic kidney disease with stage 1 through stage 4 chronic kidney disease, or unspecified chronic kidney disease; E11.22 Type 2 diabetes mellitus with diabetic chronic kidney disease; K59.00 Constipation, unspecified; K21.9 Gastro-esophageal reflux disease without esophagitis; M19.90 Unspecified osteoarthritis, unspecified site; Z86.718 Personal history of other venous thrombosis and embolism; Z79.01 Long term (current) use of anticoagulants; Z98.2 Presence of cerebrospinal fluid drainage device; F17.210 Nicotine dependence, cigarettes, uncomplicated; E87.5 Hyperkalemia; I34.0 Nonrheumatic mitral (valve) insufficiency; I27.20 Pulmonary hypertension, unspecified; N26.1 Atrophy of kidney (terminal); E87.6 Hypokalemia; M48.061 Spinal stenosis, lumbar region without neurogenic claudication; I25.10 Atherosclerotic heart disease of native coronary artery without angina pectoris; E11.42 Type 2 diabetes mellitus with diabetic polyneuropathy; E78.5 Hyperlipidemia, unspecified; K52.9 Noninfective gastroenteritis and colitis, unspecified; R33.9 Retention of urine, unspecified; I16.0 Hypertensive urgency; B95.62 Methicillin resistant Staphylococcus aureus infection as the cause of diseases classified elsewhere
CPT/HCPCS: 36415; 36416; 36569; 51702; 70450; 71045; 71260; 72125; 72128; 72131; 74176; 74177; 80048; 80053; 80202; 81001; 81003; 82962; 83605; 83690; 83735; 84145; 84443; 85007; 85025; 86403; 87040; 87077; 87081; 87186; 87205; 87426; 87449; 87493; 87506; 87635; 92507; 92526; 92610; 93005; 93306; 94640; 96361; 96365; 96367; 96372; 97110; 97116; 97161; 97162; 97166; 97530; 97535; 99291; J0360; J0692; J1200; J1644; J1720; J2020; J2543; J3370; J3475; J3490; J7030; J7050; Q9967

== ENCOUNTER → 2020-06-28 17:03 | Outpatient (BNVA) | payer MEDICARE, SELFPAY | PROVIDERS: PCP Internal Medicine; Visit Provider Urology | DX: R33.9 Retention of urine, unspecified (principal); B37.49 Other urogenital candidiasis; N13.30 Unspecified hydronephrosis | CPT/HCPCS: 81003; 87086; 87106 ==

== ENCOUNTER 2020-09-10 14:06 | Emergency (ER) | payer MEDICARE, SELFPAY ==
[2020-09-10 14:08] VITALS: BP 62/32; PULSE 63; RESP 13; O2SAT 96; BMI 22.3
[2020-09-10] MEDS: sodium chloride 0.9% 1,000 ML 999 ML IV ×3 (14:10→15:38)
[2020-09-10 14:18] VITALS: BP 63/35; PULSE 95; RESP 18; O2SAT 95
--- NOTE | 2020-09-10 14:18 | XRR_ITS ---
PROCEDURE INFORMATION: Exam: XR Chest Exam date and time: 09/10/2020 4:15 PM Age: 75 years old Clinical indication: Other: Low blood pressure; Additional info: AMS TECHNIQUE: Imaging protocol: XR of the chest. Views: 1 view. Total images: 1 COMPARISON: CT chest abd pel w con* 06/03/2020 4:35 PM FINDINGS: Tubes, catheters and devices: Ventriculoperitoneal shunt. Lungs: Mild discoid atelectasis right lung base. Mild senile fibrosis. Calcified granulomas of antecedent disease. Pleural spaces: Unremarkable. No pleural effusion. No pneumothorax. Heart/Mediastinum: Cardiac structures and configuration stable. Mild cardiomegaly. Arteriosclerosis. Bones/joints: Unremarkable. Organs: Status post cholecystectomy. XR/XR chest 1V portable [id number] IMPRESSION: Mild discoid atelectasis right lung base.
--- NOTE | 2020-09-10 14:18 | CTR_ITS ---
PROCEDURE INFORMATION: Exam: CT Head Without Contrast Exam date and time: 09/10/2020 2:35 PM Age: 75 years old Clinical indication: Syncope and collapse; Prior surgery; Surgery date: 6+ months; Surgery type: Instruments Sales Representative shunt; Patient HX: Found on floor unresponsive and hypotensive; Additional info: AMS TECHNIQUE: Imaging protocol: Computed tomography of the head without contrast. Total images: 204 Radiation optimization: All CT scans at this facility use at least one of these dose optimization techniques: automated exposure control; mA and/or kV adjustment per patient size (includes targeted exams where dose is matched to clinical indication); or iterative reconstruction. COMPARISON: CT head wo con* [id number] 06/02/2020 6:30 PM RADIATION DOSE METRICS: Total DLP (mGy-cm): 757.7 FINDINGS: Brain: Since last evaluation interval development of a small volume right parietal subdural hematoma measuring a maximum depth of under 5 mm. No mass effect. The small volume hemorrhage begins just posterior to the entrance of the ventriculoperitoneal shunt. At the level of the ventriculoperitoneal shunt is a very small subarachnoid hemorrhage along the posterior frontoparietal sulcus. No mass effect. No midline shift. Mild small vessel ischemic disease with senile periventricular leukomalacia. Mild cerebral arteriosclerosis. Cerebral and cerebellar atrophy not inconsistent with the patient's chronological age. Cerebral ventricles: Ventriculoperitoneal shunt. No ventriculomegaly. Paranasal sinuses: Visualized sinuses are unremarkable. No fluid levels. Mastoid air cells: Visualized mastoid air cells are well aerated. Bones/joints: Unremarkable. No acute fracture. Soft tissues: Unremarkable. CT/CT head wo con* [id number] IMPRESSION: 1. Small right parietal subdural hematoma without mass effect. 2. Small right frontoparietal sulcus subarachnoid hemorrhage. Radiation Dose CTDIVOL = (mGy): DLP = 757.7 (mGy-cm)
--- NOTE | 2020-09-10 14:20 | ECG_ITS ---
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 Measurements Intervals [place] Rate: 56 P: 56 ND: 187 QRS: -13 QRSD: 117 T: 32 QT: 506 QTc: 491 Interpretive Statements SINUS BRADYCARDIA WITH SINUS ARRHYTHMIA LOW QRS VOLTAGE IN PRECORDIAL LEADS [QRS DEFLECTION < 1.0 mV IN CHEST LEADS] ANTEROSEPTAL MYOCARDIAL INFARCTION [40+ ms Q WAVE IN V1-V4], OF INDETERMINATE AGE Compared to ECG 06/02/2020 21:48:16 Low QRS voltage now present Sinus rhythm no longer present Myocardial infarct finding still present Electronically Signed On 09-10-2020 15:59:25 CDT by Demetrio Heath M.D. [id number]
[2020-09-10 14:41] LABS: Basophils % 0.2 %; Eosinophils # 0.1 10^3/uL (0.0-0.8); Eosinophils % 1.4 %; Hematocrit 38.4 % (37.0-47.0); Lymphocytes # 2.7 10^3/uL (0.8-4.8); Lymphocytes % 45.4 %; Mean Corpuscular HGB Conc 31.3 g/dL (30.0-36.0); Mean Corpuscular Hemoglobin 26.6 pg (28.0-34.0); Mean Corpuscular Volume 85.1 fL (81-99); Monocytes # 0.2 10^3/uL (0.2-0.9); Monocytes % 3.1 %; Neutrophils # 2.92 10^3/uL (1.8-7.7); Neutrophils % 49.4 %; Nucleated Red Blood Cells % 0 %; Platelet Count 395 10^3/cmm (130-400); Red Blood Count 4.51 10^6/uL (4.1-5.3); Red Cell Distribution Width 13.9 % (12.1-15.1); White Blood Count 5.9 10^3/uL (4.0-10.0)
[2020-09-10 14:59] LABS: Alanine Aminotransferase 11 U/L (0-33); Albumin Level 3.9 g/dL (3.5-5.2); Alkaline Phosphatase 115 IU/L (35-105); Aspartate Amino Transferase 18 U/L (0-32); Blood Urea Nitrogen 22 mg/dL (8-23); Calcium 8.8 mg/dL (8.5-10.5); Carbon Dioxide 21 mmol/L (22-29); Chloride 89 mmol/L (98-107); Globulin 2.5 g/dL (1.3-4.6); Glucose 214 mg/dL (65-115); Osmolality Calculated 272 mOsm/kg (285-295); Sodium 126 mmol/L (136-145); Total Bilirubin 0.4 mg/dL (0.15-1.2); Total Protein 6.4 g/dL (6.6-8.7)
[2020-09-10 15:00] LABS: Troponin(5th) Baseline 22 ng/L (0-10)
[2020-09-10 15:04] LABS: Anion Gap 21.4 (5-19); Potassium 5.4 mmol/L (3.5-5.1)
--- NOTE | 2020-09-10 15:08 | ED_ITS ---
HPI - Altered Mental Status General: Chief Complaint: Altered Mental Status Stated Complaint: HYPOTENSION Time Seen by Provider: 09/10/20 14:09 History of Present Illness: HPI narrative: Patient was found by family after they came home from [place] today with the patient being with decreased responsiveness with altered mental status. Patient has had severe diarrhea. She will awaken and follow basic commands and talk to you. complaint: altered mental status, confusion and decreased responsiveness Review of Systems General: Reports: ROS unobtainable due to medical condition and ROS unobtainable due to mental status PFS ED PFSH: Medical History ACOSTA (acute kidney injury) Chronic anticoagulation Chronic kidney disease, stage III (moderate) Colitis Constipation COPD (chronic obstructive pulmonary disease) Encephalopathy GERD (gastroesophageal reflux disease) History of pleural effusion HTN (hypertension) Hydrocephalus Hydronephrosis, right Hypertensive urgency Osteoarthritis Post-concussion vertigo Pulmonary emboli On Eliquis Urinary retention Yeast UTI Surgical History History of appendectomy History of arthroscopic knee surgery History of cholecystectomy History of colonoscopy History of esophagogastroduodenoscopy (EGD) History of hemorrhoidectomy History of hysterectomy S/P cholecystectomy 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 Family History Mother , AT AGE 84 CAD (coronary artery disease) Father , AT AGE 76 Lung disease Other Cancer Diabetes Stroke Social History Smoking and tobacco status: current some day smoker Alcohol intake: never Marital status: Current occupational status: retired History of recent travel: No Physical Exam Const: EXAM LIMITATIONS: altered mental status HENMT: COMMON NORMALS: normocephalic HEAD & SCALP: normal to inspection and normocephalic FACE & SINUS: normal facial exam Eye: COMMON NORMALS: Equal, round and reactive pupils present and EOMs intact bilaterally PUPIL: Yes Equal, round and reactive pupils present Resp: COMMON NORMALS: normal respiratory effort and clear to auscultation bilaterally AUSCULTATION: clear to auscultation bilaterally Cardio: COMMON NORMALS: regular rate and regular rhythm RATE: regular rate RHYTHM: regular rhythm GI: COMMON NORMALS: Normal to inspection, nondistended, normoactive bowel sounds present, Soft to palpation, non-tender, No hepatosplenomegaly present, no masses and no bruits PALPATION: Yes Soft to palpation and Yes No hepatosplenomegaly present Neuro: COMMON NORMALS: CN's II-XII intact bilaterally, moves all extremities, no focal motor deficits and no sensory deficits noted Procedures Central Line Placement Right IJ: Time Out Performed: Yes Patient Placed on Monitor/Pulse Ox: Yes MD Prep: mask, gown and gloves Central Line Prep: Chlorhexidine scrub Local Anesthetic: lidocaine 1% Ultrasound Used for Placement: Yes Additional Comments: Unable to pass guidewire successfully in order to place central line. Course Vital Signs: Vital signs: Vital Signs Pulse Rate 95 09/10/20 14:18 Respiratory Rate 18 09/10/20 14:18 Blood Pressure 63/35 09/10/20 14:18 Pulse Oximetry 95 09/10/20 14:18 MDM - Altered Mental Status MDM Narrative: Medical decision making narrative: Patient with severe diarrhea. She is basically having a bowel movement every couple minutes. I suspect patient's hypotension is secondary to volume depletion from her severe diarrhea. She was given 3 L of fluid and did have a mild improvement of her blood pressure but still was with a systolic of 80 so was started on norepinephrine drip. A central line was attempted to be placed by myself multiple times in the IJ but unfortunately was unsuccessful. Do not want to try a femoral line due to her severe diarrhea. We will try IV hydration and patient may end up needing a PICC line. However she can use peripheral vasopressors for now. Blood pressure did improve significantly with the norepinephrine. C. difficile is pending. Discussed with Dr. Resendiz Lab Data: Labs: Lab Results 09/10/20 09/10/20 09/10/20 Range/Units 13:50 13:50 13:50 WBC 5.9 (4.0-10.0) 10^3/ uL RBC 4.51 (4.1-5.3) 10^6/u L Hgb 12.0 (11.5-15.3) g/dL Hct 38.4 (37.0-47.0) % MCV 85.1 (81-99) fL MCH 26.6 L (28.0-34.0) pg MCHC 31.3 (30.0-36.0) g/dL RDW 13.9 (12.1-15.1) % Plt Count 395 (130-400) 10^3/c mm MPV 10.0 (7.4-10.4) fL Neut % (Auto) 49.4 % Lymph % (Auto) 45.4 % [place] % (Auto) 3.1 % Eos % (Auto) 1.4 % Baso % (Auto) 0.2 % Neut # (Auto) 2.92 (1.8-7.7) 10^3/u L Lymph # (Auto) 2.7 (0.8-4.8) 10^3/u L [place] # (Auto) 0.2 (0.2-0.9) 10^3/u L Eos # (Auto) 0.1 (0.0-0.8) 10^3/u L Baso # (Auto) 0.0 (0.0-0.1) 10^3/u L Nucleated RBC % (a uto) 0 % Nucleated RBCs # 0.0 /100WBC Specimen Type Sample Site ABG pH (7.35-7.45) ABG pCO2 (35-45) mmHg ABG pO2 (80.0-100.0) mmH g ABG HCO3 (22-26) mmol/L ABG Base Excess (-2.0-2.0) mmol/ L Yonathan Test Hematocrit (37-47) % Hgb O2 Saturation (95-100) % Carboxyhemoglobin (0.4-20.1) %THgb Methemoglobin (0.4-1.5) % Total Hemoglobin (12-16) g/dL O2 Delivery Device O2 Liters/Min % FiO2 % [employer] Worker Wire Mesh ID Sodium 126 L (136-145) mmol/L Potassium 5.4 H (3.5-5.1) mmol/L Chloride 89 L (98-107) mmol/L Carbon Dioxide 21 L (22-29) mmol/L Anion Gap 21.4 H (5-19) BUN 22 (8-23) mg/dL Creatinine 1.5 H (0.5-0.9) mg/dL GFR Calculation Not Reportable Glucose 214 H (65-115) mg/dL Calculated Osmolal ity 272 L (285-295) mOsm/k g Calcium 8.8 (8.5-10.5) mg/dL Total Bilirubin 0.4 (0.15-1.2) mg/dL AST 18 (0-32) U/L ALT 11 (0-33) U/L Alkaline Phosphata se 115 H (35-105) IU/L Troponin T Baselin e 22 H (0-10) ng/L Total Protein 6.4 L (6.6-8.7) g/dL Albumin 3.9 (3.5-5.2) g/dL Globulin 2.5 (1.3-4.6) g/dL 09/10/20 Range/Units 15:56 WBC (4.0-10.0) 10^3/ uL RBC (4.1-5.3) 10^6/u L Hgb (11.5-15.3) g/dL Hct (37.0-47.0) % MCV (81-99) fL MCH (28.0-34.0) pg MCHC (30.0-36.0) g/dL RDW (12.1-15.1) % Plt Count (130-400) 10^3/c mm MPV (7.4-10.4) fL Neut % (Auto) % Lymph % (Auto) % [place] % (Auto) % Eos % (Auto) % Baso % (Auto) % Neut # (Auto) (1.8-7.7) 10^3/u L Lymph # (Auto) (0.8-4.8) 10^3/u L [place] # (Auto) (0.2-0.9) 10^3/u L Eos # (Auto) (0.0-0.8) 10^3/u L Baso # (Auto) (0.0-0.1) 10^3/u L Nucleated RBC % (a uto) % Nucleated RBCs # /100WBC Specimen Type Arterial Sample Site Radial, left ABG pH 7.30 L (7.35-7.45) ABG pCO2 45.4 H (35-45) mmHg ABG pO2 91.5 (80.0-100.0) mmH g ABG HCO3 22.4 (22-26) mmol/L ABG Base Excess -3.9 L (-2.0-2.0) mmol/ L Yonathan Test Pos Hematocrit 35.4 L (37-47) % Hgb O2 Saturation 91.9 L (95-100) % Carboxyhemoglobin 4.1 (0.4-20.1) %THgb Methemoglobin 0.9 (0.4-1.5) % Total Hemoglobin 11.5 L (12-16) g/dL O2 Delivery Device Nc O2 Liters/Min 3.0 % FiO2 32.0 % Reinforcing [employer] Worker Wire Mesh ID Cak Sodium (136-145) mmol/L Potassium (3.5-5.1) mmol/L Chloride (98-107) mmol/L Carbon Dioxide (22-29) mmol/L Anion Gap (5-19) BUN (8-23) mg/dL Creatinine (0.5-0.9) mg/dL GFR Calculation Glucose (65-115) mg/dL Calculated Osmolal ity (285-295) mOsm/k g Calcium (8.5-10.5) mg/dL Total Bilirubin (0.15-1.2) mg/dL AST (0-32) U/L ALT (0-33) U/L Alkaline Phosphata se (35-105) IU/L Troponin T Baselin e (0-10) ng/L Total Protein (6.6-8.7) g/dL Albumin (3.5-5.2) g/dL Globulin (1.3-4.6) g/dL Discharge Plan Discharge Patient Disposition: Admitted As Inpatient Clinical Impression: Acute dehydration, Acute hypotension, Acute hyperkalemia, Acute hyponatremia Diarrhea Qualifiers: Diarrhea type: presumed infectious Qualified Code(s): R19.7 - Diarrhea, unspecified Condition: Stable Coding Level of Care Code ED [employer] Consultant for [facility] Fwd Exam Detailed
[2020-09-10 16:07] LABS: ABG PCO2 45.4 mmHg (35-45); Arterial Blood Gas Hematocrit 35.4 % (37-47); Base Excess ABG -3.9 mmol/L (-2.0-2.0); Blood Gas Allen Test Pos; Blood Gas Operator Identificat CAK; Blood Gas Sample Site Radial, left; Blood Gas Sample Type Arterial; Carboxyhemoglobin 4.1 %THgb (0.4-20.1); HCO3 ABG 22.4 mmol/L (22-26); HGB O2 Sat 91.9 % (95-100); Methemoglobin 0.9 % (0.4-1.5); Oxygen Device NC; PO2 ABG 91.5 mmHg (80.0-100.0); Total Hemoglobin 11.5 g/dL (12-16)
--- NOTE | 2020-09-10 16:20 | ECG_ITS ---
[facility] Test Date: 2020-09-10 Pat Name: Mago Tong Department: Room: Gender: Female Product Strategy Director: : 1945 Requested By: Gian Tejada Order Number: [id number] Heidi MD: Demetrio Heath M.D. Measurements Intervals [place] Rate: 58 P: 57 AR: 191 QRS: -26 QRSD: 108 T: 43 QT: 491 QTc: 485 Interpretive Statements SINUS BRADYCARDIA LOW QRS VOLTAGE IN PRECORDIAL LEADS [QRS DEFLECTION < 1.0 mV IN CHEST LEADS] SEPTAL MYOCARDIAL INFARCTION , OF INDETERMINATE AGE [40+ ms Q WAVE IN V1/V2] Compared to ECG 09/10/2020 15:02:59 Sinus arrhythmia no longer present Myocardial infarct finding still present Electronically Signed On 09-11-2020 11:06:27 CDT by Demetrio Heath M.D. [id number]
--- NOTE | 2020-09-10 16:38 | PC.PHAR ---
PT UNABLE TO VERIFY MEDICATIONS-CALLED PTS SON KEISHA NO ANSWER-MEDICATIONS ENTERED ARE MEDS THAT SHOW HAVE BEEN FILLED ON EXT MED HISTORY-NOTES ARE MADE IN THE PHARMACY COMMENTS OF THE RXS
[2020-09-10 17:08] LABS: SARS Covid-2 Antigen Negative (Negative)
[2020-09-10 17:16] VITALS: BP 127/60; PULSE 70; O2SAT 96
[2020-09-10 19:30] VITALS: BP 116/72
--- NOTE | 2020-09-10 20:20 | ECG_ITS ---
[facility] Test Date: 2020-09-10 Pat Name: Mago Tong Department: Room: Gender: Female Tool Procurement Coordinator: : 1945 Requested By: Gian Tejada Order Number: [id number] Heidi MD: Demetrio Heath M.D. Measurements Intervals [place] Rate: 78 P: 52 RI: 187 QRS: 0 QRSD: 105 T: 46 QT: 400 QTc: 457 Interpretive Statements SINUS RHYTHM WITH SINUS ARRHYTHMIA SEPTAL MYOCARDIAL INFARCTION , OF INDETERMINATE AGE [40+ ms Q WAVE IN V1/V2] Compared to ECG 09/10/2020 16:29:36 Sinus bradycardia no longer present Myocardial infarct finding still present Electronically Signed On 09-11-2020 11:05:33 CDT by Demetrio Heath M.D. [id number]
== END 2020-09-10 20:30 | disposition short-term general hospital (02) ==
LOC: ER 17:06 → ICU 17:37
PROVIDERS: Emergency Provider Emergency Medicine; PCP Internal Medicine
DX: E86.0 Dehydration (principal); I95.9 Hypotension, unspecified; E87.5 Hyperkalemia; E87.1 Hypo-osmolality and hyponatremia; R19.7 Diarrhea, unspecified; I12.9 Hypertensive chronic kidney disease with stage 1 through stage 4 chronic kidney disease, or unspecified chronic kidney disease; N18.30 Chronic kidney disease, stage 3 unspecified; J44.9 Chronic obstructive pulmonary disease, unspecified; F17.210 Nicotine dependence, cigarettes, uncomplicated
CPT/HCPCS: 36600; 70450; 71045; 80053; 82805; 84484; 85025; 87426; 87493; 87506; 93005; 96365; 96366; 99291; J7030